=== PATIENT | female | born 1970 | race Caucasian/White ===

== ENCOUNTER 2016-03-23 19:11 | Outpatient (CLI) | payer MEDICAID | END 2016-03-23 19:12 | disposition home or self-care (01) | DX: G47.33 Obstructive sleep apnea (adult) (pediatric) (principal); Z68.35 Body mass index [BMI] 35.0-35.9, adult ==

== ENCOUNTER 2016-04-13 14:15 | Outpatient (CLI) | payer MEDICAID | END 2016-04-13 14:16 | disposition home or self-care (01) | DX: G47.33 Obstructive sleep apnea (adult) (pediatric) (principal) ==

== ENCOUNTER 2016-04-23 11:10 | Outpatient (CLI) | payer MEDICAID | END 2016-04-23 11:11 | disposition home or self-care (01) | DX: E10.8 Type 1 diabetes mellitus with unspecified complications (principal); E78.5 Hyperlipidemia, unspecified ==

== ENCOUNTER 2016-05-27 15:18 | Outpatient (CLI) | payer MEDICAID | END 2016-05-27 15:19 | disposition home or self-care (01) | LOC: SC 15:18 | PROVIDERS: ATTEND Nurse Practitioner Family | DX: G47.33 Obstructive sleep apnea (adult) (pediatric) (principal) | CPT/HCPCS: 99212; 99214 ==

== ENCOUNTER 2016-06-29 05:09 | Emergency (ER) | payer MEDICAID ==
[2016-06-29] MEDS ORDERED: LIDOCAINE VISCOUS 2% 15 ML UDC MM STA (05:24)
[2016-06-29] MEDS ORDERED: ONDANSETRON ODT 4 MG TABLET TL STA (05:24)
[2016-06-29] MEDS ORDERED: PANTOPRAZOLE 40 MG TABLET PO STA (05:24)
[2016-06-29] MEDS ORDERED: PANTOPRAZOLE 40 MG TABLET ONE (05:33)
[2016-06-29] MEDS ORDERED: LIDOCAINE VISCOUS 2% 15 ML UDC MM ONE (05:33)
[2016-06-29] MEDS ORDERED: ONDANSETRON ODT 4 MG TABLET ONE (05:33)
== END 2016-06-29 05:44 | disposition home or self-care (01) ==
DX: K29.70 Gastritis, unspecified, without bleeding (principal); M79.7 Fibromyalgia; I10 Essential (primary) hypertension; E10.9 Type 1 diabetes mellitus without complications; Z79.4 Long term (current) use of insulin; F17.200 Nicotine dependence, unspecified, uncomplicated
CPT/HCPCS: 99283; A9270; Q0162

== ENCOUNTER 2016-06-30 15:03 | Outpatient (CLI) | payer MEDICAID | END 2016-06-30 15:04 | disposition home or self-care (01) | DX: G47.33 Obstructive sleep apnea (adult) (pediatric) (principal) ==

== ENCOUNTER 2016-07-14 15:47 | Outpatient (CLI) | payer MEDICAID | END 2016-07-14 15:48 | disposition home or self-care (01) | DX: E10.8 Type 1 diabetes mellitus with unspecified complications (principal); L03.032 Cellulitis of left toe ==

== ENCOUNTER 2016-07-21 15:57 | Outpatient (CLI) | payer MEDICAID | END 2016-07-21 15:58 | disposition home or self-care (01) | LOC: SC 15:57 | PROVIDERS: ATTEND Nurse Practitioner Family | DX: G47.33 Obstructive sleep apnea (adult) (pediatric) (principal) | CPT/HCPCS: 99212; 99214 ==

== ENCOUNTER 2016-09-02 16:14 | Outpatient (CLI) | payer MEDICAID | END 2016-09-02 16:15 | disposition home or self-care (01) | LOC: LAB 16:14 | PROVIDERS: ATTEND Nurse Practitioner Family | DX: E87.5 Hyperkalemia (principal) | CPT/HCPCS: 36415; 84132 ==

== ENCOUNTER 2016-09-07 19:21 | Emergency (ER) | payer MEDICAID ==
--- NOTE | 2016-09-07 21:22 | ED Physician Documentation ---
History of Present Illness - Stated complaint Stated Complaint: R LEG PX - Chief complaint Chief Complaint: General - History obtained from History obtained from: Patient - History of Present Illness Timing: Today Pain level max: 7 Pain level now: 6 Improved by: rest Worsened by: plantar flexion - Additonal information Additional information: stabbing R LE pain started a few hours ago. anterior devries. Took gabapentin without relief. 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 : Chronic bladder infection, Nocturia, Frequency HEENT: None Psych: None Musculoskeletal: Fibromyalgia Derm: None - Past Surgical History Past Surgical History: Yes Ortho: Other HEENT: Myringotomy (tubes) - Present Medications Home Medications: Ambulatory Orders Medication Instructions Recorded Confirmed Atenolol [Tenormin] 100 mg PO DAILY 07/19/12 06/05/16 Insulin Glargine,Hum.rec.anlog 48 unit SQ DAILY 07/19/12 06/05/16 [Lantus] Insulin Lispro [Humalog] 7 - 21 unit SQ BIDWM 07/19/12 06/05/16 traZODone [Desyrel] 50 mg PO HS 07/19/12 06/05/16 Simvastatin 20 mg PO QPM 12/24/13 06/05/16 Butalb/Acetaminophen/Caffeine 1 each PO Q6H PRN #10 capsule 05/23/14 06/05/16 [Fioricet 50-300-40 mg Capsule] Albuterol [Ventolin Hfa] 2 puffs INH Q4H PRN 09/03/14 06/05/16 Cholecalciferol (Vitamin D3) 5,000 units PO DAILY 07/01/15 06/05/16 [Vitamin D] Gabapentin [Neurontin] 600 mg PO TID 07/01/15 06/05/16 Hydrocodone/Acetaminophen [[place] 1 each PO Q6H PRN #20 tablet 08/09/15 06/05/16 5-325 Tablet] Cyclobenzaprine HCl 10 mg PO TID PRN 06/05/16 06/05/16 Tramadol HCl 50 mg PO TID PRN 06/05/16 06/05/16 Ondansetron Odt [Zofran] 4 mg TL Q6H PRN #14 tablet 06/29/16 Pantoprazole [Protonix] 40 mg PO DAILY #14 tablet 06/29/16 Hydrocodone/Acetaminophen 1 - 2 each PO Q6H PRN #10 tablet 09/07/16 [Hydrocodon-Acetaminophen 5-325] - Allergies Allergies/Adverse Reactions: Allergies Allergy/AdvReac Type Severity Reaction Status Date / Time Fish Containing Products Allergy Severe Anaphylaxis Verified 09/07/16 19:46 meperidine HCl * AdvReac Severe Respiratory Verified 09/07/16 19:46 [From Demerol] cephalexin monohydrate * AdvReac Intermediate Hives Verified 09/07/16 19:46 [From Keflex] Sulfa (Sulfonamide AdvReac Intermediate Hives Verified 09/07/16 19:46 Antibiotics) pecan Allergy Severe Unknown Uncoded 06/05/16 09:16 Seafood Allergy Severe Anaphylaxis Uncoded 06/05/16 09:16 Walnuts Allergy Severe Unknown Uncoded 06/05/16 09:16 tape AdvReac Rash Uncoded 06/05/16 09:28 - Social History Does the pt smoke?: Yes Smoking Status: Current some day smoker Does the pt drink ETOH?: Yes Does the pt have substance abuse?: No - Immunizations Immunizations are current?: Yes Immunizations: TDAP >10years/unknown - POLST Patient has POLST: No PD ED PE NORMAL - Vitals Vital signs reviewed: Yes - General General: Alert and oriented X 3, No acute distress - Derm Derm: Warm and dry - Extremities Extremities: No deformity, Other (TTP R lower leg. No swelling. compartments soft. NVI. Tenderness is mainly on the lateral aspect of the calf.) - Neuro Neuro: Alert and oriented X 3 - Psych Psych: Normal mood, Normal affect Results - Vitals Vitals: Oxygen O2 Source Room air - Rads (name of study) Duplex ultrasound right lower extremity Radiology: Prelim report reviewed, EMP read contemporaneously, See rad report ( No DVT) PD MEDICAL DECISION MAKING - ED course Complexity details: reviewed results, re-evaluated patient, considered differential, d/w patient, d/w family ED course: Patient is a 46-year-old female with a history of fibromyalgia who presents with right lateral calf pain. No evidence of DVT. No evidence of compartment syndrome. No evidence of cellulitis or infection. This does follow the distribution of the peroneal nerve, likely related to her fibromyalgia. Will prescribe a small amount of pain medication and have her follow-up with her doctor. Patient and family counseled regarding signs and symptoms for which I believe and urgent re-evaluation would be necessary. Patient with good understanding of and agreement to plan and is comfortable going home at this time This document was made in part using voice recognition software. While efforts are made to proofread this document, sound alike and grammatical errors may occur. Departure - Departure Disposition: 01 Home, Self Care Clinical Impression: Leg pain, right Condition: Good Instructions: ED Acute Pain [facility] Follow-Up: Anitra Ocampo ARNP [Primary Care Provider] - Within 1 week Prescriptions: Hydrocodone/Acetaminophen [Hydrocodon-Acetaminophen 5-325] 1 - 2 each PO Q6H PRN #10 tablet PRN Reason: pain Comments: Return if you worsen. Your ultrasound is normal today. Do not drink alcohol or drive while on narcotic pain medicine. Note that many narcotic pain relievers also contain tylenol/acetaminophen. Please ensure that your total dose of acetaminophen from all sources does not exceed 3 grams (3000mg) per day. You may constipated on this medication, take a stool softener such as "Colace" twice a day while you are on it. Also recommend a udmh-hpv-nqmtlii laxative such as senna or MiraLAX any day that you do not have a bowel movement. If you received narcotic pain medication in the emergency department, do not drive or operate machinery for the next 24 hours. Discharge Date/Time: 09/07/16 23:24
[2016-09-07] MEDS ORDERED: HYDROcod/ACETAM 5/325 MG TABLET PO STA ×2 (21:37→23:14)
[2016-09-07] MEDS ORDERED: HYDROcod/ACETAM 5/325 MG TABLET ONE ×2 (21:42→23:18)
--- NOTE | 2016-09-07 22:47 | Ultrasound Preliminary Report ---
Exam: US Duplex Ext Veins Right IMPRESSION: No evidence for deep venous thrombosis. [facility] SITE ID: [id number]
--- NOTE | 2016-09-07 22:50 | Ultrasound Report ---
EXAM: RIGHT LOWER EXTREMITY VENOUS ULTRASOUND EXAM DATE: 09/07/2016 10:06 PM. CLINICAL HISTORY: Right lower extremity pain COMPARISON: None. TECHNIQUE: Real-time sonographic vascular imaging was performed by the residency program coordinator through the lower extremity utilizing both color-flow and Doppler spectral analysis. Multiple cash application representative static amalia ges were saved for review. FINDINGS: Common Femoral Vein (CFV): Normal. CFV-GSV Junction: Normal. Profunda Femoral Vein (PFV): Normal. Femoral Vein (FV) Prox: Normal. Femoral Vein (FV) Mid: Normal. Femoral Vein (FV) Dist: Normal. Popliteal Vein: Normal. Posterior Tibial Veins: Normal. Peroneal Veins: Normal. Contralateral Side CFV: Normal. Other: None. IMPRESSION: No evidence for deep venous thrombosis. [facility] Referring Provider Line: [phone] SITE ID: [id number]
[2016-09-07 23:13] VITALS: BP 120/74
== END 2016-09-07 23:24 | disposition home or self-care (01) ==
LOC: ED 19:21
DX: M79.661 Pain in right lower leg (principal); M79.7 Fibromyalgia; I10 Essential (primary) hypertension; E10.8 Type 1 diabetes mellitus with unspecified complications; Z79.4 Long term (current) use of insulin; F17.200 Nicotine dependence, unspecified, uncomplicated
CPT/HCPCS: 93971; 99283; A9270

== ENCOUNTER 2016-09-08 13:30 | Outpatient (CLI) | payer MEDICAID ==
--- NOTE | 2016-09-09 16:40 | Mammography Report ---
DIGITAL SCREENING MAMMOGRAM: 09/08/2016 CLINICAL INDICATION: A 46-year-old with family history of breast cancer for screening. COMPARISON: 09/2013 TECHNIQUE: Routine CC and MLO projections were obtained of the breasts. FINDINGS: Parenchymal tissue within the breasts is predominantly fatty replaced. There are no domina nt masses, suspicious microcalcifications, or secondary signs of malignancy. In comparison to the pre vious studies, there are no significant changes. IMPRESSION: NO MAMMOGRAPHIC EVIDENCE OF MALIGNANCY. NO SIGNIFICANT INTERVAL CHANGES. RECOMMENDATION: Screening mammography is recommended annually. BIRADS category 1 - negative. STANDARD QUALIFYING STATEMENTS 1. This examination was reviewed with the aid of Computed-Aided Detection (CAD). 2. A negative or benign imaging report should not delay biopsy if clinically suspicious findings are present. Consider surgical consultation if warranted. More than 5% of cancers are not identified by i maging. 3. Dense breasts may obscure an underlying neoplasm. JOB #: [id number] EXT JOB #:[id number]
== END 2016-09-08 13:31 | disposition home or self-care (01) ==
LOC: DI 13:30
PROVIDERS: ATTEND Nurse Practitioner Family
DX: Z12.31 Encounter for screening mammogram for malignant neoplasm of breast (principal)
CPT/HCPCS: 77067

== ENCOUNTER 2016-09-23 14:41 | Outpatient (CLI) | payer MEDICAID ==
--- NOTE | 2016-09-24 09:31 | XRAY Report ---
TWO-VIEW CHEST: 09/23/2016 CLINICAL INDICATION: Cough. FINDINGS: Frontal and lateral views of the chest demonstrate a normal cardiac silhouette. The lungs are clear. No effusion or pneumothorax is present. IMPRESSION: NORMAL CHEST. JOB #: [id number] EXT JOB #:[id number]
--- NOTE | 2016-09-24 09:33 | XRAY Report ---
THREE-VIEW RIGHT FOOT: 09/23/2016 CLINICAL INDICATION: Foot pain. FINDINGS: AP, lateral, oblique views of the right foot demonstrate mild osteoarthritis of the 1st me tatarsophalangeal joint. Lateral soft tissue swelling is seen. There is no evidence of acute fractu re or dislocation. IMPRESSION: SOFT TISSUE SWELLING AND OSTEOARTHRITIS. NO EVIDENCE OF ACUTE FRACTURE. JOB #: [id number] EXT JOB #:[id number]
== END 2016-09-23 14:42 | disposition home or self-care (01) ==
LOC: DI.S 14:41
PROVIDERS: ATTEND Nurse Practitioner Family
DX: R05 Cough (principal); M19.071 Primary osteoarthritis, right ankle and foot; R22.41 Localized swelling, mass and lump, right lower limb
CPT/HCPCS: 71020

== ENCOUNTER 2016-09-28 10:34 | Outpatient (CLI) | payer MEDICAID | END 2016-09-28 10:35 | disposition home or self-care (01) | LOC: LAB.F 10:34 | PROVIDERS: ATTEND Nurse Practitioner Family | DX: Z78.9 Other specified health status (principal) | CPT/HCPCS: 36415; 86803 ==

== ENCOUNTER 2016-12-03 13:13 | Outpatient (CLI) | payer MEDICAID ==
[2016-12-03 14:00] LABS: BASOPHILS # (AUTO) 0.1 10^3/uL (0.0-0.1); BASOPHILS % (AUTO) 0.9 %; EOSINOPHILS # (AUTO) 0.3 10^3/uL (0.0-0.7); HGB - HEMOGLOBIN 14.7 g/dL (12.0-16.0); LYMPHOCYTES # (AUTO) 2.5 10^3/uL (1.5-3.5); LYMPHOCYTES % (AUTO) 30.4 %; MEAN CORPUSCULAR HEMOGLOBIN 31.1 pg (27.0-31.0); MEAN CORPUSCULAR HGB CONC 32.7 g/dL (32.0-36.0); MEAN PLATELET VOLUME 8.8 fL (7.9-10.8); MONOCYTES # (AUTO) 0.6 10^3/uL (0.0-1.0); MONOCYTES % (AUTO) 6.8 %; NEUTROPHILS # (AUTO) 4.8 10^3/uL (1.5-6.6); NEUTROPHILS % (AUTO) 57.9 %; RED BLOOD COUNT 4.73 10^6/uL (4.20-5.40); UNCORRECTED WHITE BLOOD COUNT 8.3 x10^3/uL; WHITE BLOOD COUNT 8.3 x10^3/uL (4.8-10.8)
== END 2016-12-03 13:14 | disposition home or self-care (01) ==
LOC: LAB 13:13
PROVIDERS: ATTEND Nurse Practitioner Family
DX: L08.9 Local infection of the skin and subcutaneous tissue, unspecified (principal)
CPT/HCPCS: 36415; 85025; 85651; 86140

== ENCOUNTER 2017-01-01 23:50 | Emergency (ER) | payer MEDICAID ==
[2017-01-02] MEDS ORDERED: FAMOTIDINE 20 MG TABLET PO STA (00:04)
[2017-01-02] MEDS ORDERED: predniSONE 20 MG TABLET PO STA (00:04)
[2017-01-02] MEDS ORDERED: FAMOTIDINE 20 MG TABLET ONE (00:13)
[2017-01-02] MEDS ORDERED: predniSONE 20 MG TABLET ONE (00:13)
--- NOTE | 2017-01-02 00:44 | ED Physician Documentation ---
PD HPI DYSPNEA - Stated complaint Stated Complaint: DIFF BREATHING,ALLERGY - Chief complaint Chief Complaint: Resp - History obtained from History obtained from: Patient, Family - History of Present Illness Timing - onset: Today Timing - details: Gradual onset, Now resolved Improved by: Benadryl Associated symptoms: No: Fever, Cough, Wheezing, Chest pain / discomfort Similar symptoms before: Work up / diagnostics, Treatment Recently seen: Not recently seen - Additional information Additional information: Patient is a 46 year old female with a history of diabetes and a fish allergy who is presenting to the emergency department for allergic reaction. Patient states that she was out drinking and somebody gave her jerky. Patient thought that it was beef but it was fish. Patient started to feel scratching in her throat so she took three shots of fireball to "kill the fish". Patient proceeded to take three benadryls before coming to the emergency department. Upon initial evaluation in the emergency department patient was awake, alert and oriented and had no signs of an allergic reaction. Review of Systems Constitutional: denies: Fever, Chills Eyes: reports: Reviewed and negative Ears: denies: Ear pain, Drainage/discharge Nose: denies: Congestion, Sinus pressure / pain Throat: reports: Sore throat Cardiac: denies: Chest pain / pressure, Palpitations Respiratory: reports: Dyspnea. 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 : Chronic bladder infection, Nocturia, Frequency HEENT: None Psych: None Musculoskeletal: Fibromyalgia Derm: None - Past Surgical History Past Surgical History: Yes Ortho: Other HEENT: Myringotomy (tubes) - Present Medications Home Medications: Ambulatory Orders Medication Instructions Recorded Confirmed Atenolol [Tenormin] 100 mg PO DAILY 07/19/12 06/05/16 Insulin Glargine,Hum.rec.anlog 48 unit SQ DAILY 07/19/12 06/05/16 [Lantus] Insulin Lispro [Humalog] 7 - 21 unit SQ BIDWM 07/19/12 06/05/16 traZODone [Desyrel] 50 mg PO HS 07/19/12 06/05/16 Simvastatin 20 mg PO QPM 12/24/13 06/05/16 Butalb/Acetaminophen/Caffeine 1 each PO Q6H PRN #10 capsule 05/23/14 06/05/16 [Fioricet 50-300-40 mg Capsule] Albuterol [Ventolin Hfa] 2 puffs INH Q4H PRN 09/03/14 06/05/16 Cholecalciferol (Vitamin D3) 5,000 units PO DAILY 07/01/15 06/05/16 [Vitamin D] Gabapentin [Neurontin] 600 mg PO TID 07/01/15 06/05/16 Hydrocodone/Acetaminophen [[place] 1 each PO Q6H PRN #20 tablet 08/09/15 06/05/16 5-325 Tablet] Cyclobenzaprine HCl 10 mg PO TID PRN 06/05/16 06/05/16 Tramadol HCl 50 mg PO TID PRN 06/05/16 06/05/16 Ondansetron Odt [Zofran] 4 mg TL Q6H PRN #14 tablet 06/29/16 Pantoprazole [Protonix] 40 mg PO DAILY #14 tablet 06/29/16 Hydrocodone/Acetaminophen 1 - 2 each PO Q6H PRN #10 tablet 09/07/16 [Hydrocodon-Acetaminophen 5-325] Ondansetron Odt [Zofran] 4 mg TL Q6H PRN #20 tablet 01/02/17 Prednisone 40 mg PO DAILY 5 Days tablet 01/02/17 - Allergies Allergies/Adverse Reactions: Allergies Allergy/AdvReac Type Severity Reaction Status Date / Time Fish Containing Products Allergy Severe Anaphylaxis Verified 01/01/17 23:57 meperidine HCl * AdvReac Severe Respiratory Verified 01/01/17 23:57 [From Demerol] cephalexin monohydrate * AdvReac Intermediate Hives Verified 01/01/17 23:57 [From Keflex] Sulfa (Sulfonamide AdvReac Intermediate Hives Verified 01/01/17 23:57 Antibiotics) pecan Allergy Severe Unknown Uncoded 01/01/17 23:57 Seafood Allergy Severe Anaphylaxis Uncoded 01/01/17 23:57 Walnuts Allergy Severe Unknown Uncoded 01/01/17 23:57 tape AdvReac Rash Uncoded 01/01/17 23:57 - Social History Does the pt smoke?: Yes Smoking Status: Current every day smoker Does the pt drink ETOH?: Yes Does the pt have substance abuse?: No - Immunizations Immunizations are current?: Yes Immunizations: TDAP >10years/unknown - POLST Patient has POLST: No PD ED PE NORMAL - Vitals Vital signs reviewed: Yes - General General: Alert and oriented X 3 - HEENT HEENT: Atraumatic, PERRL - Neck Neck: Supple, no meningeal sign, No JVD - Cardiac Cardiac: RRR, No murmur - Respiratory Respiratory: No respiratory distress, Clear bilaterally - Abdomen Abdomen: Soft, Non tender, Non distended - Derm Derm: Normal color, No rash - Extremities Extremities: No deformity, No edema, No calf tenderness / cord - Neuro Neuro: Alert and oriented X 3, No motor deficit, No sensory deficit, Normal speech PD ED PE EXPANDED - General General: Other (mildly intoxicated) - HEENT HEENT: Moist mucous membranes, Pharynx normal, Other (no soft palate, tongue or lip swelling). No: Pharyngeal erythema, Swollen tonsils - Respiratory Respiratory: Clear to ausultation philip. No: Distress, Labored, Retractions, Wheezing Results - Vitals Vitals: Vital Signs - 24 hr 01/01/17 01/02/17 01/02/17 23:50 00:05 00:30 Temperature 36.5 C Heart Rate 99 95 94 Respiratory 16 17 18 Rate Blood Pressure 129/73 138/79 H 132/76 H O2 Saturation 100 96 95 01/02/17 01/02/17 01/02/17 00:58 01:00 01:01 Temperature Heart Rate 93 90 Respiratory 16 16 Rate Blood Pressure 134/70 H O2 Saturation 100 01/02/17 01/02/17 01/02/17 01:03 01:13 01:23 Temperature Heart Rate 92 87 81 Respiratory 14 15 17 Rate Blood Pressure 134/70 H 126/72 O2 Saturation 100 100 100 Oxygen O2 Source Nasal cannula - Labs Labs: Laboratory Tests 01/02/17 00:30 POC Whole Bld Glucose 233 H PD MEDICAL DECISION MAKING - ED course Complexity details: reviewed old records, reviewed results, re-evaluated patient , considered differential, d/w patient, d/w family ED course: Patient was seen and examined at bedside. Patient had no wheezing, no facial swelling. Patient had already taken three bendaryl and was treated with prednisone, and pepcid. Patient states that she was diabetic and wanted her blood glucose checked which was within normal limits. Patient had an episode of emesis and was treated with zofran. Patient continued to show no signs of airway compromise or systemic allergic reaction and patient was stable for discharge with outpatient follow up. Departure - Departure Disposition: 01 Home, Self Care Clinical Impression: Allergic reaction Condition: Good Instructions: ED Allergic React Food Prescriptions: Ondansetron Odt [Zofran] 4 mg TL Q6H PRN #20 tablet PRN Reason: Nausea / Vomiting Prednisone 40 mg PO DAILY 5 Days tablet Comments: Your symptoms today are being caused by an allergic reaction. You should continue to take the steroids daily for the next 4 days. You should take the benadryl every 6 hours as needed for allergy symptoms. If you have an allergic reaction again, please refrain from drinking excessively as it will not help the allergy and can exacerbate the symptoms. Discharge Date/Time: 01/02/17 01:30
[2017-01-02] MEDS ORDERED: ONDANSETRON ODT 4 MG TABLET TL STA (00:48)
[2017-01-02] MEDS ORDERED: ONDANSETRON ODT 4 MG TABLET ONE (00:57)
[2017-01-02 01:14] VITALS: BP 126/72
== END 2017-01-02 01:30 | disposition home or self-care (01) ==
LOC: ED 23:50
DX: T78.1XXA Other adverse food reactions, not elsewhere classified, initial encounter (principal); X58.XXXA Exposure to other specified factors, initial encounter; E10.9 Type 1 diabetes mellitus without complications; R11.10 Vomiting, unspecified; I10 Essential (primary) hypertension; E78.00 Pure hypercholesterolemia, unspecified; F17.200 Nicotine dependence, unspecified, uncomplicated
CPT/HCPCS: 99283; 99284; A9270; J7512; Q0162

== ENCOUNTER 2017-04-18 18:25 | Emergency (ER) | payer MEDICAID ==
[2017-04-18 18:30] VITALS: BP 153/82
[2017-04-18] MEDS ORDERED: MELOXICAM 7.5 MG TABLET PO STA (18:52)
--- NOTE | 2017-04-18 18:54 | ED Physician Documentation ---
History of Present Illness - Stated complaint Stated Complaint: L POINTER FINGER LAC - Chief complaint Chief Complaint: General - History obtained from History obtained from: Patient - History of Present Illness Timing: Other (She is a small laceration on the left index finger from yesterday that was Steri-Stripped. 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 : Chronic bladder infection, Nocturia, Frequency HEENT: None Psych: None Musculoskeletal: Fibromyalgia Derm: None - Past Surgical History Past Surgical History: Yes Ortho: Other HEENT: Myringotomy (tubes) - Present Medications Home Medications: Ambulatory Orders Medication Instructions Recorded Confirmed Atenolol [Tenormin] 100 mg PO DAILY 07/19/12 04/18/17 Insulin Glargine,Hum.rec.anlog 48 unit SQ DAILY 07/19/12 04/18/17 [Lantus] Insulin Lispro [Humalog] 7 - 21 unit SQ BIDWM 07/19/12 04/18/17 traZODone [Desyrel] 50 mg PO HS 07/19/12 04/18/17 Simvastatin 20 mg PO QPM 12/24/13 04/18/17 Butalb/Acetaminophen/Caffeine 1 each PO Q6H PRN #10 capsule 05/23/14 04/18/17 [Fioricet 50-300-40 mg Capsule] Albuterol [Ventolin Hfa] 2 puffs INH Q4H PRN 09/03/14 04/18/17 Cholecalciferol (Vitamin D3) 5,000 units PO DAILY 07/01/15 04/18/17 [Vitamin D] Gabapentin [Neurontin] 600 mg PO TID 07/01/15 04/18/17 Hydrocodone/Acetaminophen [[place] 1 each PO Q6H PRN #20 tablet 08/09/15 04/18/17 5-325 Tablet] Cyclobenzaprine HCl 10 mg PO TID PRN 06/05/16 04/18/17 Tramadol HCl 50 mg PO TID PRN 06/05/16 04/18/17 Ondansetron Odt [Zofran] 4 mg TL Q6H PRN #14 tablet 06/29/16 04/18/17 Pantoprazole [Protonix] 40 mg PO DAILY #14 tablet 06/29/16 04/18/17 Hydrocodone/Acetaminophen 1 - 2 each PO Q6H PRN #10 tablet 09/07/16 04/18/17 [Hydrocodon-Acetaminophen 5-325] Ondansetron Odt [Zofran] 4 mg TL Q6H PRN #20 tablet 01/02/17 04/18/17 predniSONE [Prednisone] 40 mg PO DAILY 5 Days tablet 01/02/17 04/18/17 Meloxicam [Mobic] 7.5 mg PO BIDWM PRN #15 tablet 04/18/17 - Allergies Allergies/Adverse Reactions: Allergies Allergy/AdvReac Type Severity Reaction Status Date / Time Fish Containing Products Allergy Severe Anaphylaxis Verified 04/18/17 01:05 meperidine HCl * AdvReac Severe Respiratory Verified 04/18/17 01:05 [From Demerol] cephalexin monohydrate * AdvReac Intermediate Hives Verified 04/18/17 01:05 [From Keflex] Sulfa (Sulfonamide AdvReac Intermediate Hives Verified 04/18/17 01:05 Antibiotics) pecan Allergy Severe Unknown Uncoded 04/18/17 01:05 Seafood Allergy Severe Anaphylaxis Uncoded 04/18/17 01:05 Walnuts Allergy Severe Unknown Uncoded 04/18/17 01:05 tape AdvReac Rash Uncoded 04/18/17 01:05 - Social History Does the pt smoke?: Yes Smoking Status: Current every day smoker Does the pt drink ETOH?: Yes Does the pt have substance abuse?: No - Immunizations Immunizations are current?: Yes Immunizations: TDAP >10years/unknown - POLST Patient has POLST: No PD ED PE NORMAL - Vitals Vital signs reviewed: Yes - General General: Alert and oriented X 3, No acute distress - Extremities Extremities: Other (There is a tiny laceration on the left index finger with a Steri-Strip in place, no evidence of infection.) - Neuro Neuro: Alert and oriented X 3, Normal speech Results - Vitals Vitals: Vital Signs - 24 hr 04/18/17 18:28 Temperature 36.1 C L Heart Rate 95 Respiratory 20 Rate Blood Pressure 153/82 H O2 Saturation 98 Oxygen O2 Source Room air Departure - Departure Disposition: 01 Home, Self Care Clinical Impression: Finger laceration Qualifiers: Encounter type: subsequent encounter Finger: index finger Damage to nail status : without damage Foreign body presence: without foreign body Laterality: left Qualified Code(s): S61.211D - Laceration without foreign body of left index finger without damage to nail, subsequent encounter Condition: Good Record reviewed to determine appropriate education?: Yes Instructions: ED Laceration Hand Prescriptions: Meloxicam [Mobic] 7.5 mg PO BIDWM PRN #15 tablet PRN Reason: Pain Comments: Your blood pressure was elevated today on check into the emergency department. This does not mean that you have hypertension, it is a common phenomenon to come to the emergency department and have elevated blood pressure. I recommend that you see your primary care physician within the week to have it rechecked when you are feeling better.
== END 2017-04-18 18:57 | disposition home or self-care (01) ==
LOC: ED 18:25
DX: S61.211D Laceration without foreign body of left index finger without damage to nail, subsequent encounter (principal); W26.0XXD Contact with knife, subsequent encounter; Z23 Encounter for immunization; E78.00 Pure hypercholesterolemia, unspecified; I10 Essential (primary) hypertension; E10.9 Type 1 diabetes mellitus without complications; F17.200 Nicotine dependence, unspecified, uncomplicated
CPT/HCPCS: 90471; 90715; 99282; 99283; A9270; 12001

== ENCOUNTER 2017-06-22 08:00 | Outpatient (CLI) | payer MEDICAID ==
[2017-06-22 18:05] LABS: ALBUMIN 3.6 g/dL (3.2-5.5); ALBUMIN/GLOBULIN RATIO 0.9 (1.0-2.2); ALKALINE PHOSPHATASE 87 IU/L (42-121); ALT ALANINE AMINOTRANSFERASE 18 IU/L (10-60); AST ASPARTATE AMINOTRANSFERASE 21 IU/L (10-42); BILIRUBIN,TOTAL 0.3 mg/dL (0.2-1.0); BUN - BLOOD UREA NITROGEN 11 mg/dL (6-20); CALCIUM 8.8 mg/dL (8.5-10.3); CARBON DIOXIDE - CO2 28 mmol/L (21-32); CHLORIDE 103 mmol/L (101-111); CHOL/HDL RATIO 2.6 (<4.4); CHOLESTEROL 193 mg/dL; CREATININE 0.7 mg/dL (0.4-1.0); GFR - MDRD 89 (>89); GLUCOSE 284 mg/dL (70-100); HDL CHOLESTEROL 73 mg/dL; LDL CHOLESTEROL,CALCULATED 97 mg/dL; LDL/HDL RATIO 1.3 (<4.4); SODIUM 136 mmol/L (135-145); TOTAL PROTEIN 7.4 g/dL (6.7-8.2); VLDL CHOLESTEROL 23 mg/dL
[2017-06-22 18:56] LABS: HB2 TOTAL 16.3 g/dL; HEMOGLOBIN A1C 1.24 g/dL; HEMOGLOBIN A1C % 9.1 % (4.6-6.2)
== END 2017-06-22 08:01 | disposition home or self-care (01) ==
LOC: LAB.F 08:00
PROVIDERS: ATTEND Nurse Practitioner Family
DX: E10.8 Type 1 diabetes mellitus with unspecified complications (principal); I10 Essential (primary) hypertension
CPT/HCPCS: 36415; 80053; 80061; 82043; 82570; 83036; 83721; 84443

== ENCOUNTER 2017-09-08 08:00 | Outpatient (CLI) | payer MEDICAID ==
[2017-09-08 18:00] LABS: BILIRUBIN,URINE NEGATIVE (NEGATIVE); GLUCOSE, URINE (UA) >=1000 mg/dL (NEGATIVE); KETONES,URINE (UA) NEGATIVE (NEGATIVE); LEUKOCYTE ESTERASE, URINE NEGATIVE (NEGATIVE); NITRITE,URINE NEGATIVE (NEGATIVE); OCCULT BLOOD,URINE MODERATE (NEGATIVE); PROTEIN,URINE NEGATIVE (NEGATIVE); UROBILINOGEN,URINE 0.2 (NORMAL) E.U./dL (NORMAL)
[2017-09-08 18:06] LABS: CLARITY,URINE CLEAR (CLEAR)
[2017-09-08 18:23] LABS: BACTERIA,URINE None Seen /HPF (None Seen); SQUAMOUS EPITHELIAL CELL,UR RARE Squamous (<= Few)
== END 2017-09-08 08:01 | disposition home or self-care (01) ==
LOC: LAB.R 08:00
PROVIDERS: ATTEND Nurse Practitioner Family
DX: N39.0 Urinary tract infection, site not specified (principal)
CPT/HCPCS: 81001; 87086

== ENCOUNTER 2017-09-29 08:00 | Outpatient (CLI) | payer MEDICAID | END 2017-09-29 08:01 | disposition home or self-care (01) | LOC: LAB.R 08:00 | PROVIDERS: ATTEND Nurse Practitioner Family | DX: R19.7 Diarrhea, unspecified (principal) | CPT/HCPCS: 82270 ==

== ENCOUNTER 2017-10-05 16:07 | Outpatient (CLI) | payer MEDICAID ==
[2017-10-05 16:30] LABS: BASOPHILS # (AUTO) 0.1 10^3/uL (0.0-0.1); BASOPHILS % (AUTO) 1.4 %; EOSINOPHILS # (AUTO) 0.5 10^3/uL (0.0-0.7); EOSINOPHILS % (AUTO) 6.6 %; LYMPHOCYTES # (AUTO) 3.5 10^3/uL (1.5-3.5); LYMPHOCYTES % (AUTO) 41.9 %; MEAN CORPUSCULAR HEMOGLOBIN 31.5 pg (27.0-31.0); MEAN CORPUSCULAR VOLUME 95.6 fL (81.0-99.0); MEAN PLATELET VOLUME 8.8 fL (7.9-10.8); MONOCYTES # (AUTO) 0.5 10^3/uL (0.0-1.0); MONOCYTES % (AUTO) 5.9 %; NEUTROPHILS # (AUTO) 3.7 10^3/uL (1.5-6.6); NEUTROPHILS % (AUTO) 44.2 %; PLT - PLATELET COUNT 242 10^3/uL (130-450); RED BLOOD COUNT 4.45 10^6/uL (4.20-5.40); RED CELL DISTRIBUTION WIDTH 13.9 % (12.0-15.0); WHITE BLOOD COUNT 8.3 x10^3/uL (4.8-10.8)
[2017-10-05 16:56] LABS: HB2 TOTAL 15.1 g/dL; HEMOGLOBIN A1C 1.2 g/dL; HEMOGLOBIN A1C % 9.4 % (4.6-6.2)
== END 2017-10-05 16:08 | disposition home or self-care (01) ==
LOC: LAB 16:07
PROVIDERS: ATTEND Nurse Practitioner Family
DX: E10.8 Type 1 diabetes mellitus with unspecified complications (principal); R19.7 Diarrhea, unspecified
CPT/HCPCS: 36415; 83036; 85025

== ENCOUNTER 2017-10-19 01:04 | Outpatient (CLI) | payer MEDICAID | END 2017-10-19 01:05 | disposition short-term general hospital (02) | LOC: EMS 01:04 | PROVIDERS: ATTEND Surgery | DX: R07.9 Chest pain, unspecified (principal) | CPT/HCPCS: A0425; A0427; A0999 ==

== ENCOUNTER 2017-11-29 14:57 | Outpatient (CLI) | payer MEDICAID | END 2017-11-29 14:58 | disposition critical access hospital (66) | LOC: EMS 14:57 | PROVIDERS: ATTEND Surgery | DX: R07.9 Chest pain, unspecified (principal) | CPT/HCPCS: A0425; A0427; A0999 ==

== ENCOUNTER 2017-11-29 15:13 | Observation (INO) | payer MEDICAID ==
--- NOTE | 2017-11-29 15:59 | ED Physician Documentation ---
PD HPI CHEST PAIN - Stated complaint Stated Complaint: CHEST PX - Chief complaint Chief Complaint: Cardiac - History obtained from History obtained from: Patient - History of Present Illness Timing - onset: Today (She had a STEMI about a month ago with a single stent in place and sounds like she has been referred to the [facility] that she may need some more work done interventionally. Today she was at rest and developed pressure-like upper chest pain around 1 PM which is now better but not quite gone. It did get worse when she exerted herself.) Review of Systems Constitutional: denies: Fever, Chills Cardiac: reports: Chest pain / pressure. 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 : Chronic bladder infection, Nocturia, Frequency HEENT: None Psych: None Musculoskeletal: Fibromyalgia Derm: None - Past Surgical History Past Surgical History: Yes Ortho: Other HEENT: Myringotomy (tubes) - Present Medications Home Medications: Ambulatory Orders Medication Instructions Recorded Confirmed Insulin Glargine,Hum.rec.anlog 65 unit SQ QPM 07/19/12 11/29/17 [Lantus] Insulin Lispro [Humalog] 12 - 45 unit SQ QID 07/19/12 11/29/17 Butalb/Acetaminophen/Caffeine 1 each PO Q6H PRN #10 capsule 05/23/14 11/29/17 [Fioricet 50-300-40 mg Capsule] Albuterol [Ventolin Hfa] 2 puffs INH Q4H PRN 09/03/14 11/29/17 Cholecalciferol (Vitamin D3) 5,000 units PO DAILY 07/01/15 11/29/17 [Vitamin D] RX: Gabapentin [Neurontin] 1,200 mg PO TID 07/01/15 11/29/17 RX: Cyclobenzaprine HCl 10 mg PO TID PRN 06/05/16 11/29/17 Omeprazole [PriLOSEC] 40 mg PO DAILY PM 10/13/17 11/29/17 RX: Nortriptyline HCl 50 mg PO DAILY 10/13/17 11/29/17 Ranitidine HCl [Zantac] 300 mg PO BID 10/13/17 11/29/17 Aspirin 81 mg PO DAILY 11/29/17 11/29/17 Carvedilol 12.5 mg PO BID 11/29/17 11/29/17 Clopidogrel Bisulfate [Clopidogrel] 75 mg PO DAILY 11/29/17 11/29/17 Isosorbide Mononitrate [Isosorbide 60 mg PO DAILY 11/29/17 11/29/17 Mononitrate ER] Lisinopril 5 mg PO DAILY 11/29/17 11/29/17 Nicotine 14 mg Patch [Nicoderm] 1 each TOP Q24H 11/29/17 11/29/17 RX: Atorvastatin Calcium 40 mg PO DAILY 11/29/17 11/29/17 - Allergies Allergies/Adverse Reactions: Allergies Allergy/AdvReac Type Severity Reaction Status Date / Time Fish Containing Products Allergy Severe Headache Verified 10/13/17 16:29 meperidine HCl * AdvReac Severe Respiratory Verified 04/18/17 01:05 [From Demerol] cephalexin monohydrate * AdvReac Intermediate Hives Verified 04/18/17 01:05 [From Keflex] Sulfa (Sulfonamide AdvReac Intermediate Hives Verified 04/18/17 01:05 Antibiotics) pecan Allergy Severe Unknown Uncoded 04/18/17 01:05 Seafood Allergy Severe Anaphylaxis Uncoded 04/18/17 01:05 Walnuts Allergy Severe Headache Uncoded 10/13/17 16:29 tape AdvReac Rash Uncoded 04/18/17 01:05 - Social History Does the pt smoke?: Yes Smoking Status: Current every day smoker Does the pt drink ETOH?: Yes Does the pt have substance abuse?: No - Family History Family history: reports: Non contributory - Immunizations Immunizations are current?: Yes Immunizations: TDAP >10years/unknown - POLST Patient has POLST: No PD ED PE NORMAL - Vitals Vital signs reviewed: Yes - General General: Alert and oriented X 3, No acute distress - HEENT HEENT: PERRL, EOMI - Neck Neck: Supple, no meningeal sign, No bony TTP - Cardiac Cardiac: RRR, No murmur - Respiratory Respiratory: No respiratory distress, Clear bilaterally - Abdomen Abdomen: Normal bowel sounds, Soft, Non tender - Back Back: No CVA TTP, No spinal TTP - Derm Derm: Normal color, Warm and dry - Extremities Extremities: No edema, No calf tenderness / cord - Neuro Neuro: Alert and oriented X 3, Normal speech Results - Vitals Vitals: Vital Signs - 24 hr 11/29/17 15:13 Temperature 36.5 C Heart Rate 97 Respiratory 18 Rate Blood Pressure 126/71 O2 Saturation 97 Oxygen O2 Source Room air - EKG (time done) 1530 Rate: Rate (enter#) (97) Rhythm: NSR Lutz: Normal Intervals: Normal UT QRS: Normal Ischemia: Normal ST segments. No: ST elevation c/w ischemia Computer interpretation: Agree with computer - Labs Labs: Laboratory Tests 11/29/17 11/29/17 11/29/17 15:51 15:51 15:51 WBC 7.4 RBC 4.03 L Hgb 12.7 Hct 37.3 MCV 92.8 MCH 31.5 H MCHC 33.9 RDW 14.2 Plt Count 293 MPV 7.8 L Neut # (Auto) 4.3 Lymph # (Auto) 2.2 Haines # (Auto) 0.5 Eos # (Auto) 0.3 Baso # (Auto) 0.1 Absolute Nucleated RBC 0.00 Nucleated RBC % 0.0 Sodium 136 Potassium 4.0 Chloride 98 L Carbon Dioxide 32 Anion Gap 6.0 BUN 17 Creatinine 0.7 Estimated GFR (MDRD) 89 Glucose 179 H Calcium 8.6 Total Bilirubin 0.2 AST 21 ALT 25 Alkaline Phosphatase 83 Troponin I < 0.04 Total Protein 7.3 Albumin 3.4 Globulin 3.9 Albumin/Globulin Ratio 0.9 L Lipase 26 - Rads (name of study) 2v chest Radiology: EMP read contemporaneously (normal) PD MEDICAL DECISION MAKING - ED course ED course: This is a 47-year-old woman with known coronary disease who presents with just a few hours worth of test chest pain. Her initial EKG and biomarkers are nonischemic, that said she Needs a formal rule out given the time course and Dr. Dunn accepted to her service for observation. - Sepsis Event Vital Signs: Vital Signs - 24 hr 11/29/17 15:13 Temperature 36.5 C Heart Rate 97 Respiratory 18 Rate Blood Pressure 126/71 O2 Saturation 97 Oxygen O2 Source Room air Departure - Departure Disposition: ED Place in Observation Clinical Impression: Chest pain Condition: Stable Discharge Date/Time: 11/29/17 17:34
[2017-11-29 16:00] LABS: BASOPHILS # (AUTO) 0.1 10^3/uL (0.0-0.1); BASOPHILS % (AUTO) 0.9 %; EOSINOPHILS # (AUTO) 0.3 10^3/uL (0.0-0.7); EOSINOPHILS % (AUTO) 3.5 %; HGB - HEMOGLOBIN 12.7 g/dL (12.0-16.0); LYMPHOCYTES # (AUTO) 2.2 10^3/uL (1.5-3.5); LYMPHOCYTES % (AUTO) 29.8 %; MEAN CORPUSCULAR HEMOGLOBIN 31.5 pg (27.0-31.0); MEAN CORPUSCULAR HGB CONC 33.9 g/dL (32.0-36.0); MEAN CORPUSCULAR VOLUME 92.8 fL (81.0-99.0); MEAN PLATELET VOLUME 7.8 fL (7.9-10.8); MONOCYTES # (AUTO) 0.5 10^3/uL (0.0-1.0); MONOCYTES % (AUTO) 7.3 %; NEUTROPHILS # (AUTO) 4.3 10^3/uL (1.5-6.6); NEUTROPHILS % (AUTO) 58.5 %; PLT - PLATELET COUNT 293 10^3/uL (130-450); RED BLOOD COUNT 4.03 10^6/uL (4.20-5.40); RED CELL DISTRIBUTION WIDTH 14.2 % (12.0-15.0); WHITE BLOOD COUNT 7.4 x10^3/uL (4.8-10.8)
--- NOTE | 2017-11-29 16:06 | XRAY Report ---
Reason: chest pain Procedure Date: 11/29/2017 Accession Number: [id number] / [id number] Procedure: XR - Chest 2 View X-Ray CPT Code: 43145 FULL RESULT: EXAM: CHEST RADIOGRAPHY EXAM DATE: 11/29/2017 03:51 PM. CLINICAL HISTORY: Chest pain. COMPARISON: CHEST 2 VIEW PA/LAT 09/23/2016 2:52 PM. TECHNIQUE: 2 views. FINDINGS: Lungs/Pleura: No focal opacities evident. No pleural effusion. No pneumothorax. Normal volumes. Mediastinum: Heart and mediastinal contours are unremarkable. Other: None. IMPRESSION: Normal 2-view chest radiography. RADIA
[2017-11-29 16:12] LABS: ALBUMIN 3.4 g/dL (3.2-5.5); ALBUMIN/GLOBULIN RATIO 0.9 (1.0-2.2); BILIRUBIN,TOTAL 0.2 mg/dL (0.2-1.0); CALCIUM 8.6 mg/dL (8.5-10.3); CREATININE 0.7 mg/dL (0.4-1.0); TOTAL PROTEIN 7.3 g/dL (6.7-8.2)
[2017-11-29] MEDS ORDERED: SODIUM CHLORIDE FLUSH 0.9% 10 ML SYRINGE IVP PRN (17:13)
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
[2017-11-29] MEDS ORDERED: NICOTINE 21 MG PATCH TOP SCH (18:00)
[2017-11-29] MEDS ORDERED: BUTALB/ACETAM/CAFF 50/325/40MG TABLET PO PRN (18:38)
[2017-11-29] MEDS ORDERED: INSULIN ASPART 300 UNIT/3 ML PEN SUBQ SCH (18:45)
[2017-11-29] MEDS ORDERED: GABAPENTIN 400 MG CAPSULE PO SCH (19:09)
[2017-11-29] MEDS: GI COCKTAIL 120 ML BOTTLE PO SCH ×2 (19:24→22:54)
[2017-11-29] MEDS: CYCLOBENZAPRINE 10 MG TABLET PO PRN (19:24)
[2017-11-29] MEDS: NICOTINE 14 MG PATCH TOP SCH (19:25)
[2017-11-29] MEDS ORDERED: INSULIN REGULAR HUMAN 100 UNIT/1 ML 10 ML MDV SUBQ SCH (20:00)
[2017-11-29] MEDS ORDERED: CARVEDILOL 12.5 MG TABLET PO SCH ×2 (21:00→22:33)
[2017-11-29] MEDS ORDERED: INSULIN GLARGINE 300 UNIT/3 ML PEN SUBQ SCH (21:00)
[2017-11-29] MEDS ORDERED: GABAPENTIN 100 MG CAPSULE PO SCH (22:00)
[2017-11-29] MEDS ORDERED: NITROGLYCERIN SL 0.4 MG TABLET SL PRN (22:35)
[2017-11-29] MEDS: SODIUM CHLORIDE 0.9% 1,000 ML IV SCH (22:54)
[2017-11-30] MEDS ORDERED: INSULIN REGULAR HUMAN 100 UNIT/1 ML 10 ML MDV SUBQ ONE (01:07)
[2017-11-30] MEDS: SODIUM CHLORIDE FLUSH 0.9% 10 ML SYRINGE IVP SCH ×3 (01:37→16:33)
[2017-11-30 03:15] LABS: BASOPHILS # (AUTO) 0.1 10^3/uL (0.0-0.1); BASOPHILS % (AUTO) 0.8 %; EOSINOPHILS # (AUTO) 0.3 10^3/uL (0.0-0.7); EOSINOPHILS % (AUTO) 4.6 %; HGB - HEMOGLOBIN 11.7 g/dL (12.0-16.0); LYMPHOCYTES # (AUTO) 2.2 10^3/uL (1.5-3.5); LYMPHOCYTES % (AUTO) 30.3 %; MEAN CORPUSCULAR HEMOGLOBIN 31.3 pg (27.0-31.0); MEAN CORPUSCULAR HGB CONC 33.7 g/dL (32.0-36.0); MEAN CORPUSCULAR VOLUME 92.9 fL (81.0-99.0); MEAN PLATELET VOLUME 7.5 fL (7.9-10.8); MONOCYTES # (AUTO) 0.6 10^3/uL (0.0-1.0); MONOCYTES % (AUTO) 8.2 %; NEUTROPHILS % (AUTO) 56.1 %; PLT - PLATELET COUNT 260 10^3/uL (130-450); RED BLOOD COUNT 3.73 10^6/uL (4.20-5.40); WHITE BLOOD COUNT 7.2 x10^3/uL (4.8-10.8)
[2017-11-30 03:29] LABS: ALBUMIN 3.4 g/dL (3.2-5.5); BILIRUBIN,TOTAL 0.3 mg/dL (0.2-1.0); CALCIUM 8.4 mg/dL (8.5-10.3); CREATININE 0.6 mg/dL (0.4-1.0); TOTAL PROTEIN 6.8 g/dL (6.7-8.2)
[2017-11-30 03:37] LABS: HB2 TOTAL 12.3 g/dL; HEMOGLOBIN A1C 0.83 g/dL; HEMOGLOBIN A1C % 8.3 % (4.6-6.2)
[2017-11-30] MEDS: CYCLOBENZAPRINE 10 MG TABLET PO PRN (05:56)
[2017-11-30 06:46] LABS: CHOLESTEROL 152 mg/dL; HDL CHOLESTEROL 76 mg/dL; LDL CHOLESTEROL,CALCULATED 63 mg/dL; LDL/HDL RATIO 0.8 (<4.4); VLDL CHOLESTEROL 13 mg/dL
[2017-11-30] MEDS: SODIUM CHLORIDE 0.9% 1,000 ML IV SCH ×3 (06:59→21:45)
[2017-11-30] MEDS ORDERED: ISOSORBIDE MONONITRATE ER 30 MG TABLET PO SCH ×2 (09:00)
[2017-11-30] MEDS ORDERED: INSULIN GLARGINE 300 UNIT/3 ML PEN SUBQ SCH (09:00)
[2017-11-30] MEDS ORDERED: ATORVASTATIN 40 MG TABLET PO SCH (09:00)
[2017-11-30] MEDS ORDERED: LISINOPRIL 5 MG TABLET PO SCH ×2 (09:00)
[2017-11-30] MEDS: GI COCKTAIL 120 ML BOTTLE PO SCH ×4 (09:53→21:38)
[2017-11-30] MEDS: CLOPIDOGREL 75 MG TABLET PO SCH (09:53)
[2017-11-30] MEDS: ASPIRIN CHEW 81 MG TABLET PO SCH (09:53)
[2017-11-30] MEDS: POLYETHYLENE GLYCOL 3350 17 GM PACKET PO SCH (09:54)
[2017-11-30] MEDS: NORTRIPTYLINE 25 MG CAPSULE PO SCH (10:33)
[2017-11-30] MEDS: INSULIN ASPART 300 UNIT/3 ML PEN SUBQ SCH ×5 (11:52→21:39)
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
[2017-11-30] MEDS ORDERED: METOPROLOL SUCCINATE 50 MG TABLET PO SCH (13:33)
[2017-11-30] MEDS: GABAPENTIN 400 MG CAPSULE PO SCH ×2 (13:53→21:37)
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
[2017-11-30] MEDS ORDERED: INSULIN REGULAR HUMAN 100 UNIT/1 ML 10 ML MDV SUBQ PRN (14:16)
[2017-11-30] MEDS: ISOSORBIDE MONONITRATE 10 MG TABLET PO SCH ×2 (15:03→21:37)
[2017-11-30] MEDS ORDERED: INSULIN LISPRO 100 UNIT/1 ML 10 ML MDV SUBQ PRN (15:07)
[2017-11-30] MEDS ORDERED: INSULIN ASPART 300 UNIT/3 ML PEN SUBQ PRN ×2 (16:07→16:36)
[2017-11-30] MEDS: NICOTINE 14 MG PATCH TOP SCH (21:38)
[2017-12-01] MEDS: SODIUM CHLORIDE FLUSH 0.9% 10 ML SYRINGE IVP SCH ×2 (02:04→09:20)
[2017-12-01] MEDS: SODIUM CHLORIDE 0.9% 1,000 ML IV SCH (05:21)
[2017-12-01] MEDS: GABAPENTIN 400 MG CAPSULE PO SCH (05:40)
[2017-12-01 07:01] LABS: BASOPHILS # (AUTO) 0.1 10^3/uL (0.0-0.1); BASOPHILS % (AUTO) 0.9 %; EOSINOPHILS # (AUTO) 0.3 10^3/uL (0.0-0.7); EOSINOPHILS % (AUTO) 4.4 %; HGB - HEMOGLOBIN 11.7 g/dL (12.0-16.0); LYMPHOCYTES % (AUTO) 30.6 %; MEAN CORPUSCULAR HEMOGLOBIN 31.5 pg (27.0-31.0); MEAN CORPUSCULAR HGB CONC 33.5 g/dL (32.0-36.0); MEAN CORPUSCULAR VOLUME 94.1 fL (81.0-99.0); MEAN PLATELET VOLUME 7.7 fL (7.9-10.8); MONOCYTES # (AUTO) 0.5 10^3/uL (0.0-1.0); MONOCYTES % (AUTO) 7.6 %; NEUTROPHILS # (AUTO) 3.7 10^3/uL (1.5-6.6); NEUTROPHILS % (AUTO) 56.5 %; PLT - PLATELET COUNT 256 10^3/uL (130-450); RED BLOOD COUNT 3.72 10^6/uL (4.20-5.40); RED CELL DISTRIBUTION WIDTH 14.1 % (12.0-15.0); WHITE BLOOD COUNT 6.6 x10^3/uL (4.8-10.8)
[2017-12-01] MEDS: INSULIN ASPART 300 UNIT/3 ML PEN SUBQ SCH ×3 (07:01→12:23)
[2017-12-01 07:17] LABS: ALBUMIN/GLOBULIN RATIO 0.9 (1.0-2.2); ALKALINE PHOSPHATASE 79 IU/L (42-121); ALT ALANINE AMINOTRANSFERASE 22 IU/L (10-60); AST ASPARTATE AMINOTRANSFERASE 21 IU/L (10-42); BILIRUBIN,TOTAL 0.4 mg/dL (0.2-1.0); BUN - BLOOD UREA NITROGEN 14 mg/dL (6-20); CALCIUM 8.1 mg/dL (8.5-10.3); CARBON DIOXIDE - CO2 25 mmol/L (21-32); CHLORIDE 107 mmol/L (101-111); CREATININE 0.6 mg/dL (0.4-1.0); GFR - MDRD 107 (>89); GLUCOSE 105 mg/dL (70-100); LIPASE 26 U/L (22-51); SODIUM 138 mmol/L (135-145); TOTAL PROTEIN 6.2 g/dL (6.7-8.2)
[2017-12-01 07:18] LABS: CRP - C-REACTIVE PROTEIN < 1.0 mg/dL (0-1.0)
[2017-12-01 08:20] VITALS: BP 118/74
[2017-12-01] MEDS ORDERED: ISOSORBIDE MONONITRATE ER 30 MG TABLET PO SCH (09:00)
[2017-12-01] MEDS ORDERED: ATORVASTATIN 40 MG TABLET PO SCH (09:00)
[2017-12-01] MEDS ORDERED: LISINOPRIL 5 MG TABLET PO SCH (09:00)
[2017-12-01] MEDS ORDERED: INSULIN GLARGINE 300 UNIT/3 ML PEN SUBQ SCH (09:00)
[2017-12-01] MEDS ORDERED: METOPROLOL SUCCINATE 50 MG TABLET PO SCH (09:00)
[2017-12-01] MEDS: POLYETHYLENE GLYCOL 3350 17 GM PACKET PO SCH (09:17)
[2017-12-01] MEDS: NORTRIPTYLINE 25 MG CAPSULE PO SCH (09:18)
[2017-12-01] MEDS: ASPIRIN CHEW 81 MG TABLET PO SCH (09:19)
[2017-12-01] MEDS: CLOPIDOGREL 75 MG TABLET PO SCH (09:20)
[2017-12-01] MEDS: GI COCKTAIL 120 ML BOTTLE PO SCH (09:21)
== END 2017-12-01 13:40 | disposition home or self-care (01) ==
LOC: EDBD → EDUNIT# → ED 15:13 → OBS 17:13
PROVIDERS: ADMIT Nurse Practitioner; ATTEND Nurse Practitioner
DX: I20.0 Unstable angina (principal); I10 Essential (primary) hypertension; I25.2 Old myocardial infarction; Z95.5 Presence of coronary angioplasty implant and graft; E11.9 Type 2 diabetes mellitus without complications; Z79.4 Long term (current) use of insulin; Z79.82 Long term (current) use of aspirin; G47.33 Obstructive sleep apnea (adult) (pediatric); M79.7 Fibromyalgia; K21.9 Gastro-esophageal reflux disease without esophagitis; Z91.19 Patient's noncompliance with other medical treatment and regimen; G43.909 Migraine, unspecified, not intractable, without status migrainosus; F32.9 Major depressive disorder, single episode, unspecified; E66.01 Morbid (severe) obesity due to excess calories; Z68.37 Body mass index [BMI] 37.0-37.9, adult; Z87.891 Personal history of nicotine dependence; E78.5 Hyperlipidemia, unspecified; Z79.02 Long term (current) use of antithrombotics/antiplatelets
CPT/HCPCS: 36415; 71046; 80053; 80061; 83036; 83690; 83880; 84443; 84484; 85025; 86140; 93005; 93306; 96360; 96361; 99283; 99284; A9270; G0378; J1815; 83721

== ENCOUNTER 2017-12-26 06:29 | Emergency (ER) | payer MEDICAID ==
[2017-12-26 06:40] VITALS: BP 136/83
[2017-12-26] MEDS ORDERED: HYDROcod/ACETAM 5/325 MG TABLET PO STA (07:35)
--- NOTE | 2017-12-26 07:48 | ED Physician Documentation ---
History of Present Illness - Stated complaint Stated Complaint: R FOOT SWELLING/PX - Chief complaint Chief Complaint: Ext Problem - Additonal information Additional information: hx from pt 47 f pmhx CAD stents 10/21/17, HTN HLD DM GERD PUD, COPD RAMYA long standing lateral right foot pain has been worked up - xray MRI etc - no findings per pt pain is severe today no new injury etc no leg swelling states when her pain acts up she usually comes is and gets some vicodin Review of Systems Constitutional: denies: Fever Cardiac: denies: Chest pain / pressure (better now after cardiac stents) Respiratory: denies: Dyspnea GI: denies: Abdominal Pain Musculoskeletal: reports: Extremity pain Endocrine: denies: Easy bruising / bleeding Immunocompromised: denies: Immunocompromised PD PAST MEDICAL HISTORY - Past Medical History Past Medical History: Yes Cardiovascular: Hypertension, High cholesterol, Arrhythmia, Other Respiratory: Sleep apnea, CPAP use, Other Neuro: Headaches, Migraines, Peripheral neuropathy Endocrine/Autoimmune: Type 2 diabetes, Other GI: GERD, GI bleed, Ulcers, Colon polyps, Hemorrhoids 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 : Chronic bladder infection, Nocturia, Frequency HEENT: Chronic vision loss, Chronic sinusitis Psych: Depression, Anxiety, Post traumatic stress disorder Musculoskeletal: Fibromyalgia, Fatigue Derm: None - Past Surgical History Past Surgical History: Yes General: Colonoscopy, EGD Ortho: Other Cardiovascular: Coronary stent, Cardiac catheterization, Angioplasty HEENT: Myringotomy (tubes) - Present Medications Home Medications: Ambulatory Orders Medication Instructions Recorded Confirmed Insulin Lispro [Humalog] 12 - 45 unit SQ QID 07/19/12 11/29/17 Butalb/Acetaminophen/Caffeine 1 each PO Q6H PRN #10 capsule 05/23/14 11/29/17 [Fioricet 50-300-40 mg Capsule] Albuterol [Ventolin Hfa] 2 puffs INH Q4H PRN 09/03/14 11/29/17 Cholecalciferol (Vitamin D3) 5,000 units PO DAILY 07/01/15 11/29/17 [Vitamin D3] Gabapentin [Neurontin] 1,200 mg PO TID 07/01/15 11/29/17 Cyclobenzaprine HCl 10 mg PO TID PRN 06/05/16 11/29/17 Nortriptyline HCl 50 mg PO DAILY 10/13/17 11/29/17 Ranitidine HCl [Zantac] 300 mg PO BID 10/13/17 11/29/17 Aspirin 81 mg PO DAILY 11/29/17 11/29/17 Clopidogrel Bisulfate [Clopidogrel] 75 mg PO DAILY 11/29/17 11/29/17 Nicotine 14 mg Patch [Nicoderm] 1 each TOP Q24H 11/29/17 11/29/17 Atorvastatin Calcium 80 mg PO DAILY #60 tablet 12/01/17 Insulin Glargine [Lantus Solostar] 45 unit SUBQ DAILY #0 pen 12/01/17 Isosorbide Mononitrate [Isosorbide 120 mg PO DAILY #30 tab.er.24h 12/01/17 Mononitrate ER] Lisinopril 2.5 mg PO DAILY #30 tablet 12/01/17 Metoprolol Succinate [Toprol Xl] 50 mg PO BIDWM #60 tablet 12/01/17 - Allergies Allergies/Adverse Reactions: Allergies Allergy/AdvReac Type Severity Reaction Status Date / Time Fish Containing Products Allergy Severe Headache Verified 12/26/17 06:43 meperidine HCl * AdvReac Severe Respiratory Verified 12/26/17 06:43 [From Demerol] cephalexin monohydrate * AdvReac Intermediate Hives Verified 12/26/17 06:43 [From Keflex] Sulfa (Sulfonamide AdvReac Intermediate Hives Verified 12/26/17 06:43 Antibiotics) pecan Allergy Severe Unknown Uncoded 12/26/17 06:43 Seafood Allergy Severe Anaphylaxis Uncoded 12/26/17 06:43 Walnuts Allergy Severe Headache Uncoded 12/26/17 06:43 tape AdvReac Rash Uncoded 12/26/17 06:43 - Social History Does the pt smoke?: Yes Smoking Status: Current every day smoker Does the pt drink ETOH?: Yes Does the pt have substance abuse?: No - Immunizations Immunizations are current?: Yes Immunizations: TDAP >10years/unknown - POLST Patient has POLST: No POLST Status: Full Code PD ED PE NORMAL - Vitals Vital signs reviewed: Yes - Cardiac Cardiac: RRR - Respiratory Respiratory: No respiratory distress, Clear bilaterally - Extremities Extremities: Other (right foot s redness wound swelling ecchymosis, strong pulses, brisk cap refill, calf not swollen NT) - Neuro Neuro: Alert and oriented X 3 Eye Opening: Spontaneous Motor: Obeys Commands Verbal: Oriented GCS Score: 15 Results - Vitals Vitals: Vital Signs - 24 hr 12/26/17 06:35 Temperature 36.4 C L Heart Rate 99 Respiratory 15 Rate Blood Pressure 136/83 H O2 Saturation 98 Oxygen O2 Source Room air PD MEDICAL DECISION MAKING - ED course ED course: explained to pt could not rx viocodin for ongoing medical problem but gave a dose in the ER suggest MAIRA ice and crutches to dec wt bearing stress Departure - Departure Disposition: 01 Home, Self Care Clinical Impression: Chronic pain in right foot Condition: Good Follow-Up: Anitra Ocampo, MARINE 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
== END 2017-12-26 08:24 | disposition home or self-care (01) ==
LOC: ED 06:29
DX: G89.29 Other chronic pain (principal); M25.571 Pain in right ankle and joints of right foot; I10 Essential (primary) hypertension; E11.9 Type 2 diabetes mellitus without complications; F17.200 Nicotine dependence, unspecified, uncomplicated; Z79.4 Long term (current) use of insulin; Z79.82 Long term (current) use of aspirin
CPT/HCPCS: 99283; A9270

== ENCOUNTER 2018-03-26 21:03 | Emergency (ER) | payer MEDICAID ==
--- NOTE | 2018-03-26 21:15 | ED Physician Documentation ---
PD HPI LOWER EXT INJURY - Stated complaint Stated Complaint: RT HIP PX - Chief complaint Chief Complaint: Ext Problem - History obtained from History obtained from: Patient - History of Present Illness PD HPI LOW EXT INJURY LOCATION: Right, Hip (lateral aspect mostly, but some pain in hip socket as well.) Type of injury: Other (She had been doing some more walking than usual with cardiac rehab starting this past week. She states she was just walking at a flat level on a treadmill on Wednesday and seemed generally sore but not having particular pain at the hip. She has been having ongoing pain at the left hip from a labral tear with prior surgical repair by Dr. Espinosa. She is having cardiac rehab at this time with the prior pacer placed. Tonight she noticed abrupt onset of pain at the lateral aspect of the right hip just as she was straightening her leg and felt a pop and then the pain. She was having pain with weightbearing and range of motion of the hip since that time.). No: Fall, Twist Timing - onset: How many hours ago (couple hours ago had abrupt worsening of pain lateral right hip) Timing - details: Abrupt onset, Still present Worsened by: Moving, Palpating Associated symptoms: No: Weakness, Numbness, Swelling Contributing factors: Prior ortho surgery (on left labrum of the hip). No: Anticoagulated Similar symptoms before: Has not had sx before (no problems with right hip previously) Review of Systems Constitutional: denies: Fever, Chills Nose: denies: Rhinorrhea / runny nose, Congestion Throat: denies: Sore throat Respiratory: denies: Cough GI: denies: Vomiting, Diarrhea Skin: denies: Rash, Lesions PD PAST MEDICAL HISTORY - Past Medical History Cardiovascular: Hypertension, High cholesterol, Arrhythmia, Other Respiratory: Sleep apnea, CPAP use, Other Neuro: Headaches, Migraines, Peripheral neuropathy Endocrine/Autoimmune: Type 2 diabetes, Other GI: GERD, GI bleed, Ulcers, Colon polyps, Hemorrhoids 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 : Chronic bladder infection, Nocturia, Frequency HEENT: Chronic vision loss, Chronic sinusitis Psych: Depression, Anxiety, Post traumatic stress disorder Musculoskeletal: Fibromyalgia, Fatigue Derm: None - Past Surgical History Past Surgical History: Yes General: Colonoscopy, EGD Ortho: Other Cardiovascular: Coronary stent, Cardiac catheterization, Angioplasty HEENT: Myringotomy (tubes) - Present Medications Home Medications: Ambulatory Orders Medication Instructions Recorded Confirmed Insulin Lispro [Humalog] 12 - 45 unit SQ QID 07/19/12 11/29/17 Butalb/Acetaminophen/Caffeine 1 each PO Q6H PRN #10 capsule 05/23/14 11/29/17 [Fioricet 50-300-40 mg Capsule] Albuterol [Ventolin Hfa] 2 puffs INH Q4H PRN 09/03/14 11/29/17 Cholecalciferol (Vitamin D3) 5,000 units PO DAILY 07/01/15 11/29/17 [Vitamin D3] Gabapentin [Neurontin] 1,200 mg PO TID 07/01/15 11/29/17 Cyclobenzaprine HCl 10 mg PO TID PRN 06/05/16 11/29/17 Nortriptyline HCl 50 mg PO DAILY 10/13/17 11/29/17 Ranitidine HCl [Zantac] 300 mg PO BID 10/13/17 11/29/17 Aspirin 81 mg PO DAILY 11/29/17 11/29/17 Clopidogrel Bisulfate [Clopidogrel] 75 mg PO DAILY 11/29/17 11/29/17 Nicotine 14 mg Patch [Nicoderm] 1 each TOP Q24H 11/29/17 11/29/17 Atorvastatin Calcium 80 mg PO DAILY #60 tablet 12/01/17 Insulin Glargine [Lantus Solostar] 45 unit SUBQ DAILY #0 pen 12/01/17 Isosorbide Mononitrate [Isosorbide 120 mg PO DAILY #30 tab.er.24h 12/01/17 Mononitrate ER] Lisinopril 2.5 mg PO DAILY #30 tablet 12/01/17 Metoprolol Succinate [Toprol Xl] 50 mg PO BIDWM #60 tablet 12/01/17 Hydrocodone/Acetaminophen [[place] 1 each PO Q6H PRN #15 tablet 03/26/18 5-325 Tablet] Naproxen 375 mg PO BID #20 tablet 03/26/18 - Allergies Allergies/Adverse Reactions: Allergies Allergy/AdvReac Type Severity Reaction Status Date / Time Fish Containing Products Allergy Severe Headache Verified 03/26/18 21:09 meperidine HCl * AdvReac Severe Respiratory Verified 03/26/18 21:09 [From Demerol] cephalexin monohydrate * AdvReac Intermediate Hives Verified 03/26/18 21:09 [From Keflex] Sulfa (Sulfonamide AdvReac Intermediate Hives Verified 03/26/18 21:09 Antibiotics) pecan Allergy Severe Unknown Uncoded 03/26/18 21:09 Seafood Allergy Severe Anaphylaxis Uncoded 03/26/18 21:09 Walnuts Allergy Severe Headache Uncoded 03/26/18 21:09 tape AdvReac Rash Uncoded 03/26/18 21:09 - Social History Does the pt smoke?: Yes Smoking Status: Current every day smoker Does the pt drink ETOH?: Yes Does the pt have substance abuse?: No - Immunizations Immunizations are current?: Yes Immunizations: TDAP >10years/unknown - POLST Patient has POLST: No POLST Status: Full Code PD ED PE NORMAL - Vitals Vital signs reviewed: Yes - General General: Alert and oriented X 3, Well developed/nourished, Other (seems uncomfortable with any movement at right hip, mostly with flexion and abduction. Not hurting as much with rotation. ) - Neck Neck: Supple, no meningeal sign, No adenopathy - Cardiac Cardiac: RRR, No murmur - Respiratory Respiratory: Clear bilaterally - Abdomen Abdomen: Soft, Non tender - Back Back: No CVA TTP, No spinal TTP - Derm Derm: Normal color, Warm and dry, No rash - Extremities Extremities: No edema, No calf tenderness / cord, Other (The right hip is tender over the lateral aspect at the greater trochanter. There is no obvious deformity there. Passive range of motion of the hip does not really hurt. Active motion hurts mostly with abduction and flexion against resistance. I did inject the area with some Marcaine which provided some improvement in her pain.) - Neuro Neuro: Alert and oriented X 3, No motor deficit, No sensory deficit, Normal speech Results - Vitals Vitals: Vital Signs - 24 hr 03/26/18 03/26/18 21:06 23:12 Temperature 36.0 C L Heart Rate 106 H 94 Respiratory 16 16 Rate Blood Pressure 137/75 H 130/92 H O2 Saturation 97 95 Oxygen O2 Source Room air - Rads (name of study) right hip Radiology: Prelim report reviewed (no acute bony process), See rad report PD MEDICAL DECISION MAKING - ED course Complexity details: reviewed results (right hip), considered differential (Focally tender along the lateral aspect at the greater trochanter. She had had a sudden pop feeling before the pain so consider the possibility of an avulsed devries or disruption of 1 of the tendons that insert. She does have some medial hip pain as well that she says feels like a prior labral tear on the left side. However that would not account for the tenderness on the greater trochanter. I believe she mostly has some bursitis or tendinitis. She states steroids increase her sugars quite a bit so we deferred a steroid injection at the bursa area. We will go some anti-inflammatories and pain medicines.), d/w patient Departure - Departure Disposition: 01 Home, Self Care Clinical Impression: Acute right hip pain Condition: Stable Record reviewed to determine appropriate education?: Yes Instructions: Trochanteric Bursitis Follow-Up: Anitra Ocampo ARNP [Primary Care Provider] - Isra Zazueta DO [Physician No Access] - Prescriptions: Hydrocodone/Acetaminophen [[place] 5-325 Tablet] 1 each PO Q6H PRN #15 tablet PRN Reason: Pain Naproxen 375 mg PO BID #20 tablet Comments: You could use some naproxen twice daily for just short-term like for 5 days. Add Tylenol or hydrocodone as needed for pain. Follow-up with Dr. Zazueta regarding this hip pain. The x-ray appeared normal. However we did not see the soft tissue and it seems likely to be a tendinitis or bursitis at the trochanter of the hip. The pop he felt may have been some partial tear of tendon. Consider a labral injury although the location would not be quite right for that. Follow-up with Dr. Zazueta regarding further treatment and evaluation. Discharge Date/Time: 03/26/18 23:20
[2018-03-26] MEDS ORDERED: HYDROcod/ACETAM 5/325 MG TABLET PO STA (21:38)
[2018-03-26] MEDS ORDERED: NAPROXEN 250 MG TABLET PO STA (21:38)
[2018-03-26] MEDS ORDERED: HYDROcod/ACET 5/325 Prepack 4 PO STA (22:31)
--- NOTE | 2018-03-26 22:50 | XRAY Report ---
Reason: abrupt pop and pain right hip today Procedure Date: 03/26/2018 Accession Number: [id number] / [id number] Procedure: XR - Hip w/Pelvis 2-3V RT CPT Code: FULL RESULT: EXAM: RIGHT HIP AND PELVIS RADIOGRAPHY EXAM DATE: 03/26/2018 10:23 PM. HISTORY: Abrupt pop and pain right hip today. COMPARISONS: HIP 2 VIEW LT 01/13/2014 11:42 PM. TECHNIQUE: 1 view of the pelvis and 1 view of the hip. FINDINGS: Bones: Normal. No fracture or bone lesion. Joints: The bilateral hip, pubis symphysis, and sacroiliac joints are preserved. Soft Tissues: Normal. No soft tissue swelling. IMPRESSION: Negative pelvis and hip radiography. RADIA
[2018-03-26 23:13] VITALS: BP 130/92
== END 2018-03-26 23:20 | disposition home or self-care (01) ==
LOC: ED 21:03
DX: M25.551 Pain in right hip (principal); I10 Essential (primary) hypertension; E78.00 Pure hypercholesterolemia, unspecified; E11.42 Type 2 diabetes mellitus with diabetic polyneuropathy; Z95.5 Presence of coronary angioplasty implant and graft; Z79.4 Long term (current) use of insulin; F17.200 Nicotine dependence, unspecified, uncomplicated
CPT/HCPCS: 73502; 99283; A9270

== ENCOUNTER 2018-05-03 08:00 | Outpatient (CLI) | payer MEDICAID ==
[2018-05-04 10:13] LABS: BILIRUBIN,URINE NEGATIVE (NEGATIVE); GLUCOSE, URINE (UA) >=1000 mg/dL (NEGATIVE); KETONES,URINE (UA) NEGATIVE (NEGATIVE); LEUKOCYTE ESTERASE, URINE NEGATIVE (NEGATIVE); NITRITE,URINE NEGATIVE (NEGATIVE); OCCULT BLOOD,URINE LARGE (NEGATIVE); PH,URINE 6.5 PH (5.0-7.5); PROTEIN,URINE NEGATIVE (NEGATIVE); UROBILINOGEN,URINE 0.2 (NORMAL) E.U./dL (NORMAL)
[2018-05-04 10:18] LABS: CLARITY,URINE HAZY (CLEAR)
[2018-05-04 10:22] LABS: BACTERIA,URINE Moderate /HPF (None Seen); SQUAMOUS EPITHELIAL CELL,UR NONE SEEN (<= Few)
== END 2018-05-03 23:59 ==
LOC: LAB.R 08:00
PROVIDERS: ATTEND Nurse Practitioner Family
DX: R31.9 Hematuria, unspecified (principal)
CPT/HCPCS: 81001; 87086; 87181

== ENCOUNTER 2018-09-29 12:52 | Outpatient (CLI) | payer OTHER ==
--- NOTE | 2018-09-30 08:52 | DEXA Report ---
Reason: MENORRHAGIA/MENOMETRORRHAGIA, PREVENTIVE CARE Procedure Date: 09/29/2018 Accession Number: [id number] / [id number] Procedure: DEX - Dexa Spine and/or Hip CPT Code: FULL RESULT: EXAM: Dexa Spine and/or Hip DATE: 09/29/2018 1:37 PM CLINICAL HISTORY: MENORRHAGIA/MENOMETRORRHAGIA, PREVENTIVE CARE TECHNIQUE: Dual energy x-ray absorptiometry (DXA) was performed on a Prescription Eyewear System. Regions measured are the AP Spine, femoral neck, and if needed forearm. COMPARISON: None. In accordance with the International Society for Clinical Densitometry (ISCD) guidelines, data from previous exams may be reanalyzed using current recommendations and techniques. This is done to allow a more accurate basis for comparison with the current study. FINDINGS: The data for the lumbar spine is as follows: BMD (g/cm/cm) T-SCORE Z-SCORE REGION L1 0.906 -1.9 -2.4 L2 1.020 -1.5 -2.1 L3 1.012 -1.6 -2.1 L4 0.968 -1.9 -2.5 TOTAL 0.978 -1.7 -2.2 NOTE: All evaluable vertebrae are used for classification The data for the hip is as follows: BMD (g/cm/cm) T-SCORE Z-SCORE REGION Neck 0.827 -1.5 -1.4 TOTAL 0.854 -1.2 -1.4 NOTE: The femoral neck or total proximal femur, whichever is lowest, is used for classification. IMPRESSION: THE WHO CLASSIFICATION BASED ON THE INTERNATIONAL REFERENCE STANDARD IS OSTEOPENIA. THE FRACTURE RISK IS INCREASED. RECOMMENDATION: Patients with diagnosis of osteoporosis or osteopenia should have regular bone mineral density assessment. For those eligible for Medicare, routine testing is allowed once every 2 years. Testing frequency can be increased for patients who have rapidly progressing disease or for those who are receiving medical therapy to restore bone mass. COMMENT: World Health Organization (WHO) definitions for osteoporosis and osteopenia: NORMAL BMD: T-score at -1.0 or higher, fracture risk is low OSTEOPENIA BMD: T-score between -1.0 and -2.5, fracture risk is increased. OSTEOPOROSIS BMD: T-score at -2.5 or lower, fracture risk is high. National Osteoporosis Foundation recommends: 1. Obtain adequate dietary calcium (at least 1200 mg per day) and vitamin D (400-800 international units per day). 2. Participate, as appropriate, in regular weightbearing and muscle-strengthening exercise. 3. Avoid tobacco use and reduce alcohol and caffeine intake. 4. For more detailed information see the website at www.NOF.org.
== END 2018-09-29 12:53 | disposition home or self-care (01) ==
LOC: DI 12:52
PROVIDERS: ATTEND Registered Nurse
DX: M85.89 Other specified disorders of bone density and structure, multiple sites (principal); N92.4 Excessive bleeding in the premenopausal period
CPT/HCPCS: 77080

== ENCOUNTER 2018-10-28 18:53 | Emergency (ER) | payer OTHER ==
--- NOTE | 2018-10-28 20:19 | ED Physician Documentation ---
History of Present Illness - Stated complaint Stated Complaint: LT HIP/RUNNING/ANXIETY - Chief complaint Chief Complaint: Ext Problem - Additonal information Additional information: This is a 48-year-old female with a history of left hip surgery for torn labrum, who presents with left hip pain as well as anxiety. 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 She has been able to ambulate, but the hip hurts and feels stiff. She denies weakness, numbness, or tingling. No falls, no impact to the hip. No back pain. 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 : Chronic bladder infection, Nocturia, Frequency HEENT: Chronic vision loss, Chronic sinusitis Psych: Depression, Anxiety, Post traumatic stress disorder Musculoskeletal: Fibromyalgia, Fatigue Derm: None - Past Surgical History Past Surgical History: Yes General: Colonoscopy, EGD Ortho: Other Cardiovascular: Coronary stent, Cardiac catheterization, Angioplasty HEENT: Myringotomy (tubes) - Present Medications Home Medications: Ambulatory Orders Medication Instructions Recorded Confirmed RX: Insulin Lispro [Humalog] 12 - 45 unit SQ QID 07/19/12 11/29/17 RX: Butalb/Acetaminophen/Caffeine 1 each PO Q6H PRN #10 capsule 05/23/14 11/29/17 [Fioricet 50-300-40 mg Capsule] RX: Albuterol [Ventolin Hfa] 2 puffs INH Q4H PRN 09/03/14 11/29/17 RX: Cholecalciferol (Vitamin D3) 5,000 units PO DAILY 07/01/15 11/29/17 [Vitamin D3] RX: Gabapentin [Neurontin] 1,200 mg PO TID 07/01/15 11/29/17 RX: Cyclobenzaprine HCl 10 mg PO TID PRN 06/05/16 11/29/17 RX: Nortriptyline HCl 50 mg PO DAILY 10/13/17 11/29/17 RX: Ranitidine HCl [Zantac] 300 mg PO BID 10/13/17 11/29/17 RX: Aspirin 81 mg PO DAILY 11/29/17 11/29/17 RX: Clopidogrel Bisulfate 75 mg PO DAILY 11/29/17 11/29/17 [Clopidogrel] RX: Nicotine 14 mg Patch [Nicoderm] 1 each TOP Q24H 11/29/17 11/29/17 Isosorbide Mononitrate [Isosorbide 120 mg PO DAILY #30 tab.er.24h 12/01/17 Mononitrate ER] RX: Atorvastatin Calcium 80 mg PO DAILY #60 tablet 12/01/17 RX: Insulin Glargine [Lantus 45 unit SUBQ DAILY #0 pen 12/01/17 Solostar] RX: Lisinopril 2.5 mg PO DAILY #30 tablet 12/01/17 RX: Metoprolol Succinate [Toprol 50 mg PO BIDWM #60 tablet 12/01/17 Xl] Hydrocodone/Acetaminophen [[place] 1 each PO Q6H PRN #15 tablet 03/26/18 5-325 Tablet] RX: Naproxen 375 mg PO BID #20 tablet 03/26/18 RX: Hydroxyzine Pamoate [Vistaril] 50 mg PO BID PRN #10 capsule 10/28/18 - Allergies Allergies/Adverse Reactions: Allergies Allergy/AdvReac Type Severity Reaction Status Date / Time Fish Containing Products Allergy Severe Headache Verified 03/26/18 21:09 meperidine HCl * AdvReac Severe Respiratory Verified 03/26/18 21:09 [From Demerol] cephalexin monohydrate * AdvReac Intermediate Hives Verified 03/26/18 21:09 [From Keflex] Sulfa (Sulfonamide AdvReac Intermediate Hives Verified 03/26/18 21:09 Antibiotics) pecan Allergy Severe Unknown Uncoded 03/26/18 21:09 Seafood Allergy Severe Anaphylaxis Uncoded 03/26/18 21:09 Walnuts Allergy Severe Headache Uncoded 03/26/18 21:09 tape AdvReac Rash Uncoded 03/26/18 21:09 - Social History Does the pt smoke?: Yes Smoking Status: Current every day smoker Does the pt drink ETOH?: Yes Does the pt have substance abuse?: No - Immunizations Immunizations are current?: Yes Immunizations: TDAP >10years/unknown - POLST Patient has POLST: No POLST Status: Full Code PD ED PE NORMAL - Vitals Vital signs reviewed: Yes - General General: Alert and oriented X 3, No acute distress - HEENT HEENT: PERRL - Cardiac Cardiac: Strong equal pulses - Respiratory Respiratory: No respiratory distress - Abdomen Abdomen: Soft, Non distended - Derm Derm: Warm and dry - Extremities Extremities: Other (Extremities are symmetric, there is no notable edema or skin changes to the left hip. Patient has some tenderness over the left trochanter and down in the track of the IT band. Full active range of motion of the knee, ankle. Patient is able to flex and extend the hip, and ambulate with some discomfortSensation to light touch intact over the entire extremity, Distal strength is 5 out of 5, capillary refill brisk) - Neuro Neuro: Alert and oriented X 3 - Psych Psych: Normal mood, Normal affect Results - Vitals Vitals: Vital Signs - 24 hr 10/28/18 10/28/18 19:18 20:34 Temperature 36.9 C Heart Rate 96 90 Respiratory 16 16 Rate Blood Pressure 142/83 H 138/80 H O2 Saturation 97 100 Oxygen O2 Source Room air PD MEDICAL DECISION MAKING - ED course Complexity details: considered differential (Anxiety, phobia, strain, sprain, labral tear, arthritis, fracture, dislocation) ED course: On examination patient is well-appearing, she has a neurovascular intact limb, she is able to ambulate. She has no significant bony tenderness, and the fact that she is able to ambulate and has no trauma to the region makes fracture highly unlikely. She has normal range of motion of the hip but no signs of dislocation. Overall I am suspicious that she has an exacerbation of her pain due to combination of her past surgery/degenerative changes and her straining event today. It is also possible that she has an IT band or leg muscle strain. Because she has good range of motion and is otherwise well-appearing we should trial some rest, ice, elevation, and over the counter pain control. She should follow-up with her primary care provider and she may need referral to sports medicine or further imaging in the future if her symptoms are progressive or not improving. She takes clopidogrel so I advised her not to use nonsteroidal anti- inflammatories, stick to Tylenol and ice. Regarding her anxiety/phobia of rats, I discussed that she should use mindfulness and breathing techniques first, I did prescribe a small number of hydroxyzine if needed. I discussed the risks of this medication. I discussed return precautions, patient agreed with this plan and was discharged home Departure - Departure Disposition: Home, Self Care Clinical Impression: Pain in extremity, Anxiety Condition: Good Instructions: ED RICE Follow-Up: Geri Mata ARNP [Primary Care Provider] - Within 1 week Prescriptions: RX: Hydroxyzine Pamoate [Vistaril] 50 mg PO BID PRN #10 capsule PRN Reason: Anxiety Comments: You were seen today for hip pain as well as anxiety. Please rest ice and el evate the hip and avoid straining it further. You can perform gentle stretching and range of motion exercises. Follow-up with your primary care provider if you are having continued symptoms, you may need referral to sports medicine if your symptoms are persistent. Regarding your anxiety, practice mindfulness techniques and breathing exercises. You may try the hydroxyzine if needed, but this medication can cause drowsiness so avoid taking it regularly, and do not drive or operate machinery after taking it. Discharge Date/Time: 10/28/18 20:34
[2018-10-28] MEDS ORDERED: ACETAMINOPHEN 325 MG TABLET PO STA (20:20)
[2018-10-28] MEDS ORDERED: hydrOXYzine PAMOATE 25 MG CAPSULE PO STA (20:23)
[2018-10-28 20:36] VITALS: BP 138/80
== END 2018-10-28 20:34 | disposition home or self-care (01) ==
LOC: ED 18:53
DX: M25.552 Pain in left hip (principal); F41.9 Anxiety disorder, unspecified; I10 Essential (primary) hypertension; E11.9 Type 2 diabetes mellitus without complications; Z79.4 Long term (current) use of insulin; Z79.82 Long term (current) use of aspirin; F17.200 Nicotine dependence, unspecified, uncomplicated
CPT/HCPCS: 99282; 99284; A9270

== ENCOUNTER 2018-11-11 08:00 | Outpatient (CLI) | payer OTHER ==
[2018-11-11 20:21] LABS: H. PYLORIS ANTIGEN STL NEGATIVE (Negative)
== END 2018-11-11 23:59 | disposition home or self-care (01) ==
LOC: LAB.R 08:00
PROVIDERS: ATTEND Family Medicine
DX: R11.2 Nausea with vomiting, unspecified (principal)
CPT/HCPCS: 87338

== ENCOUNTER 2019-01-20 14:26 | Outpatient (CLI) | payer OTHER ==
--- NOTE | 2019-01-23 08:16 | Mammography Report ---
Reason: SCREENING MAMMO Procedure Date: 01/20/2019 Accession Number: [id number] / [id number] Procedure: [facility] - Screening Mammo w/Naman CPT Code: Final Report FULL RESULT: EXAM: Screening Mammo w/Naman DATE: 01/20/2019 3:13 PM CLINICAL HISTORY: Routine screening. No reported personal history of breast cancer. Family history breast cancer in mother at age 55 and maternal grandmother at age 40. TECHNIQUE: (B) - Bilateral CC and MLO views were obtained. COMPARISON: None PARENCHYMAL PATTERN: (A) - The breasts demonstrate scattered fibroglandular densities bilaterally. FINDINGS: Bilateral breasts: There are no suspicious masses, calcifications, or areas of distortion. IMPRESSION: Negative examination. BI-RADS category 1. RECOMMENDATION: (ANNUAL) - Recommend routine annual screening mammography. Given family history, patient may be at increased risk for development of breast cancer. Formal risk assessment with a genetic counselor should be considered; patient may benefit from advanced screening practices and/or risk reduction strategies if there is sufficient assessed risk. BI-RADS CATEGORY: (1) - Negative. STANDARD QUALIFYING STATEMENTS: 1. This examination was not reviewed with the aid of Computer-Aided Detection (CAD). 2. A negative or benign imaging report should not preclude biopsy if clinically suspicious findings are present. 3. Dense breasts may obscure an underlying neoplasm. 4. This examination was reviewed with the aid of 3D breast imaging (tomosynthesis).
== END 2019-01-20 14:27 | disposition home or self-care (01) ==
LOC: DI 14:26
DX: Z12.31 Encounter for screening mammogram for malignant neoplasm of breast (principal); Z80.3 Family history of malignant neoplasm of breast
CPT/HCPCS: 77063; 77067

== ENCOUNTER 2019-01-21 16:21 | Emergency (ER) | payer OTHER ==
[2019-01-21] MEDS ORDERED: KETOROLAC 60 MG/2 ML VIAL IM STA (18:54)
--- NOTE | 2019-01-21 18:55 | ED Physician Documentation ---
PD HPI Fall - Stated complaint Stated Complaint: GLF,BACK PX,R LEG PX - Chief complaint Chief Complaint: General - History obtained from History obtained from: Patient - History of Present Illness Mechanism of injury: Slipped Fall distance: Standing position Where injury occurred: Home Timing - onset: Today Injury(ies) location: Head, Neck, Chest, Back, Right Lower Extremity Pain level now: 9 Quality of pain: Pain Associated symptoms: Neck pain. No: LOC, Seizures, Weakness, Paresthesias, Dyspnea, Nausea / vomiting Worsens with: Movement Recently seen: Not recently seen - Additional information Additional information: This is a 48-year-old woman who presents with her complains that she was walking down the steps this afternoon approximately 3 hours ago when she slipped on the wet steps and came down landing on the right side of her butt and backward onto her right chest and hit the back of her head on the steps. At first she thought she was okay and she was in the process of taking her dog to the vet so she got in the car and started to drive but could not drive straight she kept going to the right. She called her on the phone and returned home and had them bring her straight here. She has not taken any medications for the pain but did take an [id number] Tylenol with codeine from [facility] this morning because she was having a bit of a migraine. Her biggest pain right now is in her neck the right side of her but her right hip and the back of her right thigh as well as her right rib. She denies shortness of breath. She denies passing out and has a headache stating that her brain got "shaken up". She was nauseous but had no vomiting and she is eaten something here which she says she had to do because she was diabetic. She has not been dizzy. She denies any urinary incontinence or hematuria. No dysuria. Her pain in her right hip has improved since she is been waiting to be evaluated. She denies numbness or tingling into her arms or legs and denies prior surgical intervention on her back Review of Systems Respiratory: denies: Dyspnea GI: reports: Nausea. denies: Abdominal Pain, Vomiting : denies: Dysuria, Incontinent, Hematuria Skin: denies: Rash Musculoskeletal: reports: Neck pain, Back pain Neurologic: reports: Headache, Head injury. 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 : Chronic bladder infection, Nocturia, Frequency HEENT: Chronic vision loss, Chronic sinusitis Psych: Depression, Anxiety, Post traumatic stress disorder Musculoskeletal: Fibromyalgia, Fatigue Derm: None - Past Surgical History Past Surgical History: Yes General: Colonoscopy, EGD Ortho: Other Cardiovascular: Coronary stent, Cardiac catheterization, Angioplasty HEENT: Myringotomy (tubes) - Present Medications Home Medications: Ambulatory Orders Medication Instructions Recorded Confirmed Insulin Lispro [Humalog] 12 - 45 unit SQ QID 07/19/12 11/29/17 Butalb/Acetaminophen/Caffeine 1 each PO Q6H PRN #10 capsule 05/23/14 11/29/17 [Fioricet 50-300-40 mg Capsule] Albuterol [Ventolin Hfa] 2 puffs INH Q4H PRN 09/03/14 11/29/17 Cholecalciferol (Vitamin D3) 5,000 units PO DAILY 07/01/15 11/29/17 [Vitamin D3] Gabapentin [Neurontin] 1,200 mg PO TID 07/01/15 11/29/17 Cyclobenzaprine HCl 10 mg PO TID PRN 06/05/16 11/29/17 Nortriptyline HCl 50 mg PO DAILY 10/13/17 11/29/17 raNITIdine HCl [Zantac] 300 mg PO BID 10/13/17 11/29/17 Aspirin 81 mg PO DAILY 11/29/17 11/29/17 Clopidogrel Bisulfate [Clopidogrel] 75 mg PO DAILY 11/29/17 11/29/17 Nicotine 14 mg Patch [Nicoderm] 1 each TOP Q24H 11/29/17 11/29/17 Atorvastatin Calcium 80 mg PO DAILY #60 tablet 12/01/17 Insulin Glargine [Lantus Solostar] 45 unit SUBQ DAILY #0 pen 12/01/17 Isosorbide Mononitrate [Isosorbide 120 mg PO DAILY #30 tab.er.24h 12/01/17 Mononitrate ER] Lisinopril 2.5 mg PO DAILY #30 tablet 12/01/17 Metoprolol Succinate [Toprol Xl] 50 mg PO BIDWM #60 tablet 12/01/17 Hydrocodone/Acetaminophen [[place] 1 each PO Q6H PRN #15 tablet 03/26/18 5-325 Tablet] Naproxen 375 mg PO BID #20 tablet 03/26/18 Hydroxyzine Pamoate [Vistaril] 50 mg PO BID PRN #10 capsule 10/28/18 Hydrocodone/Acetaminophen 1 - 2 each PO Q6H PRN #14 tablet 01/21/19 [Hydrocodon-Acetaminophen 5-325] - Allergies Allergies/Adverse Reactions: Allergies Allergy/AdvReac Type Severity Reaction Status Date / Time Fish Containing Products Allergy Severe Headache Verified 01/21/19 16:41 shellfish derived Allergy Unknown Verified 01/21/19 16:41 meperidine HCl * AdvReac Severe Respiratory Verified 01/21/19 16:41 [From Demerol] cephalexin monohydrate * AdvReac Intermediate Hives Verified 01/21/19 16:41 [From Keflex] Sulfa (Sulfonamide AdvReac Intermediate Hives Verified 01/21/19 16:41 Antibiotics) pecan Allergy Severe Unknown Uncoded 03/26/18 21:09 Seafood Allergy Severe Anaphylaxis Uncoded 03/26/18 21:09 Walnuts Allergy Severe Headache Uncoded 03/26/18 21:09 tape AdvReac Rash Uncoded 03/26/18 21:09 - Social History Does the pt smoke?: Yes Smoking Status: Current every day smoker Does the pt drink ETOH?: Yes Does the pt have substance abuse?: No - Immunizations Immunizations are current?: Yes Immunizations: TDAP >10years/unknown - POLST Patient has POLST: No POLST Status: Full Code PD ED PE NORMAL - Vitals Vital signs reviewed: Yes - General General: Alert and oriented X 3, No acute distress, Well developed/nourished - HEENT HEENT: Atraumatic, PERRL, EOMI, Moist mucous membranes, Pharynx benign - Neck Neck: Supple, no meningeal sign, No bony TTP, No adenopathy, Other (She is tender with palpation to the right trapezius muscle) - Cardiac Cardiac: RRR, Strong equal pulses - Respiratory Respiratory: No respiratory distress, Clear bilaterally - Abdomen Abdomen: Normal bowel sounds - Derm Derm: Normal color, Warm and dry, No rash, Other (There is a small bruise at the right lateral ribs in the posterior axillary line at about rib 10. 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, No motor deficit, No sensory deficit, Normal speech, Other (Symmetrical quadricep reflexes and Achilles reflexes) - Psych Psych: Normal mood, Normal affect Results - Vitals Vitals: Vital Signs - 24 hr 01/21/19 01/21/19 01/21/19 16:35 18:37 19:09 Temperature 37 C Heart Rate 75 96 86 Respiratory 16 18 16 Rate Blood Pressure 142/74 H 139/92 H 148/81 H O2 Saturation 100 98 97 Oxygen O2 Source Room air - Labs Labs: Laboratory Tests 01/21/19 16:33 Urine Color YELLOW Urine Clarity CLEAR Urine pH 6.5 Ur Specific [place] <=1.005 Urine Protein NEGATIVE Urine Glucose (UA) NEGATIVE Urine Ketones NEGATIVE Urine Occult Blood NEGATIVE Urine Nitrite NEGATIVE Urine Bilirubin NEGATIVE Urine Urobilinogen 0.2 (NORMAL) Ur Leukocyte Esterase NEGATIVE Ur Microscopic Review NOT INDICATED Urine Culture Comments NOT INDICATED - Rads (name of study) R hip Radiology: EMP read contemporaneously (Neg) PD MEDICAL DECISION MAKING - ED course Complexity details: reviewed results, d/w patient ED course: The patient has a multitude of complaints from the fall. She is some bruising a long the ribs. She is not short of breath. She has not seen blood in the urine. I did not feel that chest x-ray was warranted at this time. Her hip x- ray is negative. She was given a dose of Toradol IM. Departure - Departure Disposition: 01 Home, Self Care Clinical Impression: Contusion of rib on right side Qualifiers: Encounter type: initial encounter Qualified Code(s): S20.211A - Contusion of right front wall of thorax, initial encounter Strain, cervical Qualifiers: Encounter type: initial encounter Qualified Code(s): S16.1XXA - Strain of muscle, fascia and tendon at neck level, initial encounter Contusion of hip, right Qualifiers: Encounter type: initial encounter Qualified Code(s): S70.01XA - Contusion of right hip, initial encounter Condition: Good Instructions: ED Contusion Chest Wall, ED Sprain Strain Neck, ED Contusion Rib Follow-Up: Geri Mata ARNP [Primary Care Provider] - Prescriptions: Hydrocodone/Acetaminophen [Hydrocodon-Acetaminophen 5-325] 1 - 2 each PO Q6H PRN #14 tablet PRN Reason: pain Comments: Ice to the sore areas. Continue to take your anti-inflammatory [id number]. You have been given a prescription for a couple of hydrocodone tablets which you can use if needed for additional pain. Splint the chest if you need it hurts to cough or laugh. Follow-up with your primary care provider if your pain persists. Return if you urinate brittany bright red blood or if you have difficulty breathing. Discharge Date/Time: 01/21/19 20:00
[2019-01-21 19:10] VITALS: BP 148/81
[2019-01-21 19:25] LABS: BILIRUBIN,URINE NEGATIVE (NEGATIVE); GLUCOSE, URINE (UA) NEGATIVE (NEGATIVE); KETONES,URINE (UA) NEGATIVE (NEGATIVE); LEUKOCYTE ESTERASE, URINE NEGATIVE (NEGATIVE); NITRITE,URINE NEGATIVE (NEGATIVE); OCCULT BLOOD,URINE NEGATIVE (NEGATIVE); PH,URINE 6.5 PH (5.0-7.5); PROTEIN,URINE NEGATIVE (NEGATIVE); UROBILINOGEN,URINE 0.2 (NORMAL) E.U./dL (NORMAL)
--- NOTE | 2019-01-21 19:49 | XRAY Report ---
Reason: R hip pain Procedure Date: 01/21/2019 Accession Number: [id number] / [id number] Procedure: XR - Hip w/Pelvis 2-3V RT CPT Code: Final Report FULL RESULT: EXAM: RIGHT HIP RADIOGRAPHY EXAM DATE: 01/21/2019 07:24 PM. CLINICAL HISTORY: R hip pain. COMPARISON: HIP W/PELVIS 2-3V RT 03/26/2018 10:03 PM. TECHNIQUE: 2 views. FINDINGS: Bones: Normal. No fractures or bone lesion. Joints: Normal. No dislocation. The hip joint space is preserved. Soft Tissues: Normal. No soft tissue swelling. IMPRESSION: No fracture or subluxation of right hip. RADIA
[2019-01-21 20:15] LABS: CLARITY,URINE CLEAR (CLEAR)
== END 2019-01-21 20:00 | disposition home or self-care (01) ==
LOC: ED 16:21
DX: S20.211A Contusion of right front wall of thorax, initial encounter (principal); S70.01XA Contusion of right hip, initial encounter; S16.1XXA Strain of muscle, fascia and tendon at neck level, initial encounter; W10.9XXA Fall (on) (from) unspecified stairs and steps, initial encounter; Y92.028 Other place in mobile home as the place of occurrence of the external cause; I10 Essential (primary) hypertension; E11.40 Type 2 diabetes mellitus with diabetic neuropathy, unspecified; F17.200 Nicotine dependence, unspecified, uncomplicated; Z79.4 Long term (current) use of insulin
CPT/HCPCS: 81001; 81003; 87086; 96372; 99283; 99284

== ENCOUNTER 2019-12-05 08:28 | Outpatient (CLI) | payer OTHER ==
[2019-12-05 15:10] LABS: BASOPHILS # (AUTO) 0.1 10^3/uL (0.0-0.1); BASOPHILS % (AUTO) 0.7 %; EOSINOPHILS # (AUTO) 0.2 10^3/uL (0.0-0.7); HGB - HEMOGLOBIN 14.6 g/dL (12.0-16.0); LYMPHOCYTES # (AUTO) 3.3 10^3/uL (1.5-3.5); LYMPHOCYTES % (AUTO) 30.7 %; MEAN CORPUSCULAR HEMOGLOBIN 31.6 pg (27.0-31.0); MEAN CORPUSCULAR HGB CONC 32.1 g/dL (32.0-36.0); MEAN CORPUSCULAR VOLUME 98.5 fL (81.0-99.0); MONOCYTES # (AUTO) 0.6 10^3/uL (0.0-1.0); MONOCYTES % (AUTO) 5.4 %; NEUTROPHILS # (AUTO) 6.6 10^3/uL (1.5-6.6); NEUTROPHILS % (AUTO) 60.7 %; PLT - PLATELET COUNT 294 10^3/uL (130-450); RED BLOOD COUNT 4.62 10^6/uL (4.20-5.40); RED CELL DISTRIBUTION WIDTH 14.1 % (12.0-15.0); WHITE BLOOD COUNT 10.8 x10^3/uL (4.8-10.8)
[2019-12-05 15:26] LABS: HEMOGLOBIN A1c% 8.8 % (4.27-6.07)
[2019-12-05 15:44] LABS: ALBUMIN 3.5 g/dL (3.2-5.5); ALBUMIN/GLOBULIN RATIO 0.9 (1.0-2.2); ALKALINE PHOSPHATASE 101 IU/L (42-121); ALT ALANINE AMINOTRANSFERASE 21 IU/L (10-60); AST ASPARTATE AMINOTRANSFERASE 24 IU/L (10-42); BILIRUBIN,TOTAL 0.3 mg/dL (0.2-1.0); BUN - BLOOD UREA NITROGEN 19 mg/dL (6-20); CALCIUM 9.4 mg/dL (8.5-10.3); CARBON DIOXIDE - CO2 27 mmol/L (21-32); CHLORIDE 101 mmol/L (101-111); CHOL/HDL RATIO 2.3 (<4.4); CHOLESTEROL 149 mg/dL; CREATININE 0.8 mg/dL (0.4-1.0); GLUCOSE 209 mg/dL (70-100); HDL CHOLESTEROL 65 mg/dL; LDL CHOLESTEROL,CALCULATED 51 mg/dL; LDL/HDL RATIO 0.8 (<4.4); SODIUM 135 mmol/L (135-145); TOTAL PROTEIN 7.2 g/dL (6.7-8.2); VLDL CHOLESTEROL 33 mg/dL
== END 2019-12-05 08:29 | disposition home or self-care (01) ==
LOC: LAB.S 08:28
PROVIDERS: ATTEND Registered Nurse
DX: E78.5 Hyperlipidemia, unspecified (principal); I10 Essential (primary) hypertension; E10.9 Type 1 diabetes mellitus without complications; F41.8 Other specified anxiety disorders
CPT/HCPCS: 36415; 80053; 80061; 83036; 83721; 84443; 85025

== ENCOUNTER 2020-05-28 16:27 | Emergency (ER) | payer OTHER ==
[2020-05-28] MEDS ORDERED: KETOROLAC 60 MG/2 ML VIAL IM STA (16:46)
--- NOTE | 2020-05-28 16:50 | ED Physician Documentation ---
PD HPI LOWER EXT INJURY - Stated complaint Stated Complaint: HIP/BOTTOM PX - Chief complaint Chief Complaint: Trauma Ext - History obtained from History obtained from: Patient - Additional information Additional information: 50-year-old woman with history of fibromyalgia, coronary disease with multiple stents, diabetes was walking yesterday and slipped on some wet grass. She had progressive pain in the buttock on the right and hip ever since. It is worse with walking. Because of the pain she started using her walker from a prior left hip surgery which is made her shoulders hurt. Review of Systems Constitutional: reports: Reviewed and negative Eyes: reports: Reviewed and negative Ears: reports: Reviewed and negative Nose: reports: Reviewed and negative Throat: reports: Reviewed and negative Cardiac: reports: Reviewed and negative Respiratory: reports: Reviewed and negative PD PAST MEDICAL HISTORY - Past Medical History Cardiovascular: Hypertension, High cholesterol, Arrhythmia, Other Respiratory: Sleep apnea, CPAP use, Other Neuro: Headaches, Migraines, Peripheral neuropathy Endocrine/Autoimmune: Type 2 diabetes, Other GI: GERD, GI bleed, Ulcers, Colon polyps, Hemorrhoids 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 : Chronic bladder infection, Nocturia, Frequency HEENT: Chronic vision loss, Chronic sinusitis Psych: Depression, Anxiety, Post traumatic stress disorder Musculoskeletal: Fibromyalgia, Fatigue Derm: None - Past Surgical History Past Surgical History: Yes General: Colonoscopy, EGD Ortho: Other Cardiovascular: Coronary stent, Cardiac catheterization, Angioplasty HEENT: Myringotomy (tubes) - Present Medications Home Medications: Ambulatory Orders Medication Instructions Recorded Confirmed Insulin Lispro [Humalog] 12 - 45 unit SQ QID 07/19/12 11/29/17 Butalb/Acetaminophen/Caffeine 1 each PO Q6H PRN #10 capsule 05/23/14 11/29/17 [Fioricet 50-300-40 mg Capsule] Albuterol [Ventolin Hfa] 2 puffs INH Q4H PRN 09/03/14 11/29/17 Cholecalciferol (Vitamin D3) 5,000 units PO DAILY 07/01/15 11/29/17 [Vitamin D3] Gabapentin [Neurontin] 1,200 mg PO TID 07/01/15 11/29/17 Cyclobenzaprine HCl 10 mg PO TID PRN 06/05/16 11/29/17 Nortriptyline HCl 50 mg PO DAILY 10/13/17 11/29/17 raNITIdine HCl [Zantac] 300 mg PO BID 10/13/17 11/29/17 Aspirin 81 mg PO DAILY 11/29/17 11/29/17 Clopidogrel Bisulfate [Clopidogrel] 75 mg PO DAILY 11/29/17 11/29/17 Nicotine 14 mg Patch [Nicoderm] 1 each TOP Q24H 11/29/17 11/29/17 Atorvastatin Calcium 80 mg PO DAILY #60 tablet 12/01/17 Insulin Glargine [Lantus Solostar] 45 unit SUBQ DAILY #0 pen 12/01/17 Isosorbide Mononitrate [Isosorbide 120 mg PO DAILY #30 tab.er.24h 12/01/17 Mononitrate ER] Metoprolol Succinate [Toprol Xl] 50 mg PO BIDWM #60 tablet 12/01/17 lisinopriL [Lisinopril] 2.5 mg PO DAILY #30 tablet 12/01/17 Hydrocodone/Acetaminophen [[place] 1 each PO Q6H PRN #15 tablet 03/26/18 5-325 Tablet] Naproxen 375 mg PO BID #20 tablet 03/26/18 hydrOXYzine pamoate [Vistaril] 50 mg PO BID PRN #10 capsule 10/28/18 Hydrocodone/Acetaminophen 1 - 2 each PO Q6H PRN #14 tablet 01/21/19 [Hydrocodon-Acetaminophen 5-325] HYDROcod/ACETAM 5/325 [[place] 5/325] 1 - 2 tab PO Q6H PRN #10 tablet 05/28/20 - Allergies Allergies/Adverse Reactions: Allergies Allergy/AdvReac Type Severity Reaction Status Date / Time Fish Containing Products Allergy Severe Headache Verified 05/28/20 16:53 shellfish derived Allergy Unknown Verified 05/28/20 16:53 meperidine HCl * AdvReac Severe Respiratory Verified 05/28/20 16:53 [From Demerol] cephalexin monohydrate * AdvReac Intermediate Hives Verified 05/28/20 16:53 [From Keflex] Sulfa (Sulfonamide AdvReac Intermediate Hives Verified 05/28/20 16:53 Antibiotics) pecan Allergy Severe Unknown Uncoded 05/28/20 16:53 Seafood Allergy Severe Anaphylaxis Uncoded 05/28/20 16:53 Walnuts Allergy Severe Headache Uncoded 05/28/20 16:53 tape AdvReac Rash Uncoded 05/28/20 16:53 - Social History Does the pt smoke?: Yes Smoking Status: Current every day smoker Does the pt drink ETOH?: Yes Does the pt have substance abuse?: No - Immunizations Immunizations are current?: Yes Immunizations: TDAP >10years/unknown - POLST Patient has POLST: No POLST Status: Full Code PD ED PE NORMAL - Vitals Vital signs reviewed: Yes - General General: Alert and oriented X 3, No acute distress - HEENT HEENT: PERRL, EOMI - Neck Neck: Supple, no meningeal sign, No bony TTP - Extremities Extremities: Other (Tender to the lateral and posterior right hip, no inguinal tenderness on the right. She has some pain with internal and external rotation but not exquisite. The knee is nontender on the right. No pedal edema or calf pain or tenderness.) - Neuro Neuro: Alert and oriented X 3, Normal speech Results - Vitals Vitals: Vital Signs - 24 hr 05/28/20 16:30 Temperature 36 C L Heart Rate 89 Respiratory 18 Rate Blood Pressure 127/70 O2 Saturation 94 Oxygen O2 Source Room air Departure - Departure Disposition: 01 Home, Self Care Clinical Impression: Strain of right hip Qualifiers: Encounter type: initial encounter Qualified Code(s): S76.011A - Strain of muscle, fascia and tendon of right hip, initial encounter Condition: Good Record reviewed to determine appropriate education?: Yes Instructions: ED Sprain Hip Follow-Up: [facility] [Provider Group] Prescriptions: HYDROcod/ACETAM 5/325 [[place] 5/325] 1 - 2 tab PO Q6H PRN #10 tablet PRN Reason: Pain Comments: Do not drink or drive while taking narcotic pain medication. Note that many narcotic pain relievers also contain Tylenol/acetaminophen. Please ensure that your total dose of acetaminophen from all sources does not exceed 3 g (3000 mg) per day. You may get constipated while on this medication. Take a stool softener such as Colace twice a day while you are on it. Also add an [id number]-[id number] laxative such as senna or MiraLAX on any day that you do not have a bowel movement. If you received a narcotic pain medication or sedative while in the emergency department, do not drive for the next 24 hours.
--- NOTE | 2020-05-28 17:17 | XRAY Report ---
PROCEDURE: Hip w/Pelvis 2-3V RT INDICATIONS: fall hip pain TECHNIQUE: AP pelvis with lateral view(s) of the right hip(s). COMPARISON: 01/21/2019 FINDINGS: Bones: No acute fractures or dislocations. Femoral head contours remain round. Pelvic ring appears i ntact. No suspicious bony lesions. Mild degenerative changes of the bilateral hips. Soft tissues: The visualized bowel gas pattern is normal. No suspicious soft tissue calcifications. IMPRESSION: Pelvis and right hip without acute fracture or dislocation. Mild bilateral hip degenerative change. If there is high clinical suspicion for radiographically occult hip fracture, consider further evalua tion with cross-sectional imaging such as CT or MRI. Reviewed by: Gomez Jackson MD on 05/28/2020 5:16 PM PDT Approved by: Gomez Jackson MD on 05/28/2020 5:16 PM PDT Station ID: [id number]
[2020-05-28 17:29] VITALS: BP 126/63
== END 2020-05-28 17:35 | disposition home or self-care (01) ==
LOC: ED 16:27
DX: S76.011A Strain of muscle, fascia and tendon of right hip, initial encounter (principal); W01.0XXA Fall on same level from slipping, tripping and stumbling without subsequent striking against object, initial encounter; Y93.01 Activity, walking, marching and hiking; E11.42 Type 2 diabetes mellitus with diabetic polyneuropathy; Z79.4 Long term (current) use of insulin; Z95.5 Presence of coronary angioplasty implant and graft; I10 Essential (primary) hypertension; F17.200 Nicotine dependence, unspecified, uncomplicated
CPT/HCPCS: 96372; 99283; 99284

== ENCOUNTER 2020-05-30 07:50 | Emergency (ER) | payer OTHER ==
[2020-05-30] MEDS ORDERED: SODIUM CHLORIDE 0.9% 1,000 ML IV STA (08:19)
[2020-05-30] MEDS ORDERED: KETOROLAC 30 MG/ML VIAL IVP STA (08:19)
--- NOTE | 2020-05-30 08:21 | ED Physician Documentation ---
PD HPI ABD PAIN - Stated complaint Stated Complaint: DIARRHEA/STOMACH PX - Chief complaint Chief Complaint: Abd Pain - History obtained from History obtained from: Patient - Additional information Additional information: 50-year-old woman with history of IBS was seen 2 days ago after a fall, hurting her hip. She got a shot of Toradol which was quite helpful, that night she developed severe abdominal cramps and bloody diarrhea. States she had 100 episodes of bloody diarrhea that night. No nausea, no fevers. No sick contacts, no camping, no travel, no recent antibiotics. Review of Systems Ten Systems: 10 systems reviewed and negative Constitutional: reports: Myalgias, Fatigue. denies: Fever, Chills GI: reports: Abdominal Pain, Diarrhea, Bloody / black stool. 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 : Chronic bladder infection, Nocturia, Frequency HEENT: Chronic vision loss, Chronic sinusitis Psych: Depression, Anxiety, Post traumatic stress disorder Musculoskeletal: Fibromyalgia, Fatigue Derm: None - Past Surgical History Past Surgical History: Yes General: Colonoscopy, EGD Ortho: Other Cardiovascular: Coronary stent, Cardiac catheterization, Angioplasty HEENT: Myringotomy (tubes) - Present Medications Home Medications: Ambulatory Orders Medication Instructions Recorded Confirmed Insulin Lispro [Humalog] 12 - 45 unit SQ QID 07/19/12 11/29/17 Butalb/Acetaminophen/Caffeine 1 each PO Q6H PRN #10 capsule 05/23/14 11/29/17 [Fioricet 50-300-40 mg Capsule] Albuterol [Ventolin Hfa] 2 puffs INH Q4H PRN 09/03/14 11/29/17 Cholecalciferol (Vitamin D3) 5,000 units PO DAILY 07/01/15 11/29/17 [Vitamin D3] Gabapentin [Neurontin] 1,200 mg PO TID 07/01/15 11/29/17 Cyclobenzaprine HCl 10 mg PO TID PRN 06/05/16 11/29/17 Nortriptyline HCl 50 mg PO DAILY 10/13/17 11/29/17 raNITIdine HCl [Zantac] 300 mg PO BID 10/13/17 11/29/17 Aspirin 81 mg PO DAILY 11/29/17 11/29/17 Clopidogrel Bisulfate [Clopidogrel] 75 mg PO DAILY 11/29/17 11/29/17 Nicotine 14 mg Patch [Nicoderm] 1 each TOP Q24H 11/29/17 11/29/17 Atorvastatin Calcium 80 mg PO DAILY #60 tablet 12/01/17 Insulin Glargine [Lantus Solostar] 45 unit SUBQ DAILY #0 pen 12/01/17 Isosorbide Mononitrate [Isosorbide 120 mg PO DAILY #30 tab.er.24h 12/01/17 Mononitrate ER] Metoprolol Succinate [Toprol Xl] 50 mg PO BIDWM #60 tablet 12/01/17 lisinopriL [Lisinopril] 2.5 mg PO DAILY #30 tablet 12/01/17 Hydrocodone/Acetaminophen [[place] 1 each PO Q6H PRN #15 tablet 03/26/18 5-325 Tablet] Naproxen 375 mg PO BID #20 tablet 03/26/18 hydrOXYzine pamoate [Vistaril] 50 mg PO BID PRN #10 capsule 10/28/18 Hydrocodone/Acetaminophen 1 - 2 each PO Q6H PRN #14 tablet 01/21/19 [Hydrocodon-Acetaminophen 5-325] HYDROcod/ACETAM 5/325 [[place] 5/325] 1 - 2 tab PO Q6H PRN #10 tablet 05/28/20 Dicyclomine [Bentyl] 1 - 2 tab PO QID PRN #20 cap 05/30/20 - Allergies Allergies/Adverse Reactions: Allergies Allergy/AdvReac Type Severity Reaction Status Date / Time Fish Containing Products Allergy Severe Headache Verified 05/30/20 08:02 shellfish derived Allergy Unknown Verified 05/30/20 08:02 meperidine HCl * AdvReac Severe Respiratory Verified 05/30/20 08:02 [From Demerol] cephalexin monohydrate * AdvReac Intermediate Hives Verified 05/30/20 08:02 [From Keflex] Sulfa (Sulfonamide AdvReac Intermediate Hives Verified 05/30/20 08:02 Antibiotics) pecan Allergy Severe Unknown Uncoded 05/30/20 08:02 Seafood Allergy Severe Anaphylaxis Uncoded 05/30/20 08:02 Walnuts Allergy Severe Headache Uncoded 05/30/20 08:02 tape AdvReac Rash Uncoded 05/30/20 08:02 - Social History Does the pt smoke?: Yes Smoking Status: Current every day smoker Does the pt drink ETOH?: Yes Does the pt have substance abuse?: No - Immunizations Immunizations are current?: Yes Immunizations: TDAP >10years/unknown - POLST Patient has POLST: No POLST Status: Full Code PD ED PE NORMAL - Vitals Vital signs reviewed: Yes (Tachycardic) - General General: Alert and oriented X 3, No acute distress - HEENT HEENT: PERRL, EOMI - Neck Neck: Supple, no meningeal sign, No bony TTP - Cardiac Cardiac: RRR, No murmur - Respiratory Respiratory: No respiratory distress, Clear bilaterally - Abdomen Abdomen: Other (Hyperactive bowel tones, no tenderness.) - Back Back: No CVA TTP, No spinal TTP - Derm Derm: Normal color, Warm and dry - Extremities Extremities: No edema, No calf tenderness / cord - Neuro Neuro: Alert and oriented X 3, Normal speech Results - Vitals Vitals: Vital Signs - 24 hr 05/30/20 05/30/20 07:59 09:58 Temperature 36.0 C L Heart Rate 134 H 90 Respiratory 20 18 Rate Blood Pressure 133/90 H 131/61 H O2 Saturation 97 97 Oxygen O2 Source Room air - Labs Labs: Laboratory Tests 05/30/20 05/30/20 05/30/20 08:24 08:24 08:24 WBC 16.1 H RBC 5.02 Hgb 15.6 Hct 46.6 MCV 92.8 MCH 31.1 H MCHC 33.5 RDW 14.1 Plt Count 266 MPV 10.3 Neut # (Auto) 12.2 H Lymph # (Auto) 2.9 Bartholomew # (Auto) 0.9 Eos # (Auto) 0.1 Baso # (Auto) 0.1 Absolute Nucleated RBC 0.00 Nucleated RBC % 0.0 Sodium 132 L Potassium 4.4 Chloride 96 L Carbon Dioxide 26 Anion Gap 10.0 BUN 13 Creatinine 0.9 Estimated GFR (MDRD) 66 L Glucose 220 H Lactic Acid 1.7 Calcium 9.0 Total Bilirubin 0.5 AST 16 ALT 17 Alkaline Phosphatase 83 Total Protein 7.5 Albumin 3.4 Globulin 4.1 Albumin/Globulin Ratio 0.8 L Lipase 16 L Urine Opiates Screen Ur Oxycodone Screen Urine Methadone Screen Ur Propoxyphene Screen Ur Barbiturates Screen Ur Tricyclics Screen Ur Phencyclidine Scrn Ur Amphetamine Screen U Methamphetamines Scrn U Benzodiazepines Scrn Urine Cocaine Screen U Cannabinoids Screen Ethyl Alcohol < 5.0 05/30/20 08:50 WBC RBC Hgb Hct MCV MCH MCHC RDW Plt Count MPV Neut # (Auto) Lymph # (Auto) Bartholomew # (Auto) Eos # (Auto) Baso # (Auto) Absolute Nucleated RBC Nucleated RBC % Sodium Potassium Chloride Carbon Dioxide Anion Gap BUN Creatinine Estimated GFR (MDRD) Glucose Lactic Acid Calcium Total Bilirubin AST ALT Alkaline Phosphatase Total Protein Albumin Globulin Albumin/Globulin Ratio Lipase Urine Opiates Screen NEGATIVE Ur Oxycodone Screen NEGATIVE Urine Methadone Screen NEGATIVE Ur Propoxyphene Screen NEGATIVE Ur Barbiturates Screen POSITIVE H Ur Tricyclics Screen POSITIVE H Ur Phencyclidine Scrn NEGATIVE Ur Amphetamine Screen NEGATIVE U Methamphetamines Scrn NEGATIVE U Benzodiazepines Scrn NEGATIVE Urine Cocaine Screen NEGATIVE U Cannabinoids Screen NEGATIVE Ethyl Alcohol - Rads (name of study) CT A/P Radiology: EMP read contemporaneously (Long segment colonic wall thickening compatible with infectious or inflammatory colitis. Mild adjacent mesenteric fat stranding.) PD MEDICAL DECISION MAKING - ED course ED course: 50-year-old woman with bloody diarrhea of a couple days duration. CT showing colitis, could be infectious or inflammatory. Her vital signs were notable to be significantly tachycardic on arrival but much better on recheck, no lactic acidosis. She was unable to produce a stool sample here and was given collection materials and an order for stool culture, C. difficile, and ova and parasites to return to the hospital lab. Departure - Departure Disposition: 01 Home, Self Care Clinical Impression: Diarrhea Qualifiers: Diarrhea type: presumed infectious Qualified Code(s): R19.7 - Diarrhea, unspecified Instructions: ED Diarrhea Bacterial Prescriptions: Dicyclomine [Bentyl] 1 - 2 tab PO QID PRN #20 cap PRN Reason: Abdominal Pain Comments: As discussed, your CT shows colitis. Return a stool sample to the lab with the order for stool culture, ova and parasites, and C. difficile when able. If a bacterial pathogen is isolated we will call you to call in antibiotics. Return for new or worsening symptoms. If symptoms are persistent, talk with your doctor about referral for repeat colonoscopy. Discharge Date/Time: 05/30/20 10:54
[2020-05-30 08:30] LABS: BASOPHILS # (AUTO) 0.1 10^3/uL (0.0-0.1); BASOPHILS % (AUTO) 0.4 %; EOSINOPHILS # (AUTO) 0.1 10^3/uL (0.0-0.7); EOSINOPHILS % (AUTO) 0.4 %; HCT - HEMATOCRIT 46.6 % (37.0-47.0); HGB - HEMOGLOBIN 15.6 g/dL (12.0-16.0); LYMPHOCYTES # (AUTO) 2.9 10^3/uL (1.5-3.5); LYMPHOCYTES % (AUTO) 17.7 %; MEAN CORPUSCULAR HEMOGLOBIN 31.1 pg (27.0-31.0); MEAN CORPUSCULAR HGB CONC 33.5 g/dL (32.0-36.0); MEAN CORPUSCULAR VOLUME 92.8 fL (81.0-99.0); MEAN PLATELET VOLUME 10.3 fL (7.9-10.8); MONOCYTES # (AUTO) 0.9 10^3/uL (0.0-1.0); MONOCYTES % (AUTO) 5.4 %; NEUTROPHILS # (AUTO) 12.2 10^3/uL (1.5-6.6); NEUTROPHILS % (AUTO) 75.7 %; PLT - PLATELET COUNT 266 10^3/uL (130-450); RED BLOOD COUNT 5.02 10^6/uL (4.20-5.40); RED CELL DISTRIBUTION WIDTH 14.1 % (12.0-15.0); WHITE BLOOD COUNT 16.1 x10^3/uL (4.8-10.8)
[2020-05-30 08:42] LABS: ALBUMIN 3.4 g/dL (3.2-5.5); ALBUMIN/GLOBULIN RATIO 0.8 (1.0-2.2); ALKALINE PHOSPHATASE 83 IU/L (42-121); ALT ALANINE AMINOTRANSFERASE 17 IU/L (10-60); AST ASPARTATE AMINOTRANSFERASE 16 IU/L (10-42); BILIRUBIN,TOTAL 0.5 mg/dL (0.2-1.0); BUN - BLOOD UREA NITROGEN 13 mg/dL (6-20); CARBON DIOXIDE - CO2 26 mmol/L (21-32); CHLORIDE 96 mmol/L (101-111); CREATININE 0.9 mg/dL (0.4-1.0); ETOH - ETHANOL < 5.0 mg/dL; GFR - MDRD 66 (>89); GLUCOSE 220 mg/dL (70-100); LIPASE 16 U/L (22-51); POTASSIUM 4.4 mmol/L (3.5-5.0); SODIUM 132 mmol/L (135-145); TOTAL PROTEIN 7.5 g/dL (6.7-8.2)
[2020-05-30 09:01] LABS: MUDS CUTOFF CONCENTRATIONS CUTOFF CONC BELOW:
[2020-05-30 09:24] LABS: AMPHETAMINE SCREEN,URINE NEGATIVE (NEGATIVE); BARBITURATE SCREEN,UR POSITIVE (NEGATIVE); BENZODIAZEPINES SCREEN, URINE NEGATIVE (NEGATIVE); COCAINE SCREEN URINE NEGATIVE (NEGATIVE); METHADONE SCREEN, URINE NEGATIVE (NEGATIVE); METHAMPHETAMINES SCREEN, URINE NEGATIVE (NEGATIVE); OPIATE SCREEN, URINE NEGATIVE (NEGATIVE); OXYCODONE SCREEN, URINE NEGATIVE (NEGATIVE); PROPOXYPHENE SCREEN, URINE NEGATIVE (NEGATIVE); THC CANNABINOID SCREEN, URINE NEGATIVE (NEGATIVE); TRICYCLIC ANTIDEPRESSANT,URINE POSITIVE (NEGATIVE)
[2020-05-30] MEDS ORDERED: IOVERSOL 320 100 ML VIAL IVP ONE ×2 (09:25→09:50)
--- NOTE | 2020-05-30 09:28 | CT Report ---
PROCEDURE: Abdomen/Pelvis W INDICATIONS: IV only, abd pain CONTRAST: IV CONTRAST: Optiray 320 ml: 100 PO CONTRAST: *NO PO CONTRAST TECHNIQUE: After the administration of IV contrast, 5 mm thick sections acquired from the diaphragms to the symp hysis. 5 mm thick coronal and sagittal reformats were acquired. For radiation dose reduction, the f ollowing was used: automated exposure control, adjustment of mA and/or kV according to patient size. COMPARISON: None. FINDINGS: Image quality: Excellent. ABDOMEN: Lung bases: Lung bases are clear. Heart size is normal. Solid organs: Liver and spleen are normal in size and enhancement. Hepatic steatosis noted. Gallblad anthony grossly unremarkable. Biliary system is non dilated. Pancreas enhances normally. No adrenal no dules. Kidneys demonstrate normal size and enhancement, without hydronephrosis. Peritoneum and bowel: Long segment colonic wall thickening involving the transverse and descending co nataliya, with mild adjacent inflammatory stranding. No abscess or bowel obstruction is identified. No free fluid or air. Nodes and vessels: No retroperitoneal or mesenteric adenopathy by size criteria. Aorta and inferior vena cava are normal in size. Miscellaneous: No ventral hernias. PELVIS: Genitourinary: Bladder wall thickness is normal. Miscellaneous: No inguinal hernias or adenopathy. Bones: No suspicious bony lesions. No vertebral body compression fractures. IMPRESSION: Long segment colonic wall thickening compatible with infectious or inflammatory colitis. Mild adjacen t mesenteric fat stranding. Normal appendix No bowel obstruction Reviewed by: Dustin Tsang MD on 05/30/2020 9:27 AM PDT Approved by: Dustin Tsang MD on 05/30/2020 9:27 AM PDT Station ID: [id number]
[2020-05-30 09:59] VITALS: BP 131/61
== END 2020-05-30 10:54 | disposition home or self-care (01) ==
LOC: ED 07:50
DX: K52.9 Noninfective gastroenteritis and colitis, unspecified (principal); I10 Essential (primary) hypertension; E11.9 Type 2 diabetes mellitus without complications; Z79.4 Long term (current) use of insulin; F17.200 Nicotine dependence, unspecified, uncomplicated
CPT/HCPCS: 36415; 74177; 80053; 80306; 80320; 83605; 83690; 85025; 96361; 96374; 99284; Q9967; 81599; 87177; 87209; 87493

== ENCOUNTER 2020-05-30 08:00 | Outpatient (CLI) | payer OTHER | END 2020-05-30 23:59 | disposition home or self-care (01) | LOC: LAB 08:00 | PROVIDERS: ATTEND Emergency Medicine | DX: R19.7 Diarrhea, unspecified (principal) | CPT/HCPCS: 81599; 87177; 87209; 87493 ==

== ENCOUNTER 2020-07-07 12:49 | Emergency (ER) | payer OTHER ==
[2020-07-07] MEDS ORDERED: KETOROLAC 60 MG/2 ML VIAL IM STA (13:14)
[2020-07-07] MEDS ORDERED: ONDANSETRON ODT 4 MG TABLET TL STA (13:14)
--- NOTE | 2020-07-07 13:16 | ED Physician Documentation ---
History of Present Illness - Stated complaint Stated Complaint: BACK/RIB PX - Chief complaint Chief Complaint: General - History obtained from History obtained from: Patient - Additonal information Additional information: Patient has a history of type 2 diabetes, GERD, ulcers, colonic polyps, fibromyalgia, coronary artery disease, hypertension, hyperlipidemia. Yesterday he was doing some light yard work and subsequently developed right-sided back pain radiating to the front. It was gradual in onset and constant. It is much worse with bending, twisting, walking. Had not noticed any change with eating. Denies weakness, numbness, tingling of the saddle area or extremities other than chronic diabetic neuropathy. No incontinence. No fevers. 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 : Chronic bladder infection, Nocturia, Frequency HEENT: Chronic vision loss, Chronic sinusitis Psych: Depression, Anxiety, Post traumatic stress disorder Musculoskeletal: Fibromyalgia, Fatigue Derm: None - Past Surgical History Past Surgical History: Yes General: Colonoscopy, EGD Ortho: Other Cardiovascular: Coronary stent, Cardiac catheterization, Angioplasty HEENT: Myringotomy (tubes) - Present Medications Home Medications: Ambulatory Orders Medication Instructions Recorded Confirmed Insulin Lispro [Humalog] 12 - 45 unit SQ QID 07/19/12 11/29/17 Butalb/Acetaminophen/Caffeine 1 each PO Q6H PRN #10 capsule 05/23/14 11/29/17 [Fioricet 50-300-40 mg Capsule] Albuterol [Ventolin Hfa] 2 puffs INH Q4H PRN 09/03/14 11/29/17 Cholecalciferol (Vitamin D3) 5,000 units PO DAILY 07/01/15 11/29/17 [Vitamin D3] Gabapentin [Neurontin] 1,200 mg PO TID 07/01/15 11/29/17 Cyclobenzaprine HCl 10 mg PO TID PRN 06/05/16 11/29/17 Nortriptyline HCl 50 mg PO DAILY 10/13/17 11/29/17 raNITIdine HCl [Zantac] 300 mg PO BID 10/13/17 11/29/17 Aspirin 81 mg PO DAILY 11/29/17 11/29/17 Clopidogrel Bisulfate [Clopidogrel] 75 mg PO DAILY 11/29/17 11/29/17 Nicotine 14 mg Patch [Nicoderm] 1 each TOP Q24H 11/29/17 11/29/17 Atorvastatin Calcium 80 mg PO DAILY #60 tablet 12/01/17 Insulin Glargine [Lantus Solostar] 45 unit SUBQ DAILY #0 pen 12/01/17 Isosorbide Mononitrate [Isosorbide 120 mg PO DAILY #30 tab.er.24h 12/01/17 Mononitrate ER] Metoprolol Succinate [Toprol Xl] 50 mg PO BIDWM #60 tablet 12/01/17 lisinopriL [Lisinopril] 2.5 mg PO DAILY #30 tablet 12/01/17 Hydrocodone/Acetaminophen [[place] 1 each PO Q6H PRN #15 tablet 03/26/18 5-325 Tablet] Naproxen 375 mg PO BID #20 tablet 03/26/18 hydrOXYzine pamoate [Vistaril] 50 mg PO BID PRN #10 capsule 10/28/18 Hydrocodone/Acetaminophen 1 - 2 each PO Q6H PRN #14 tablet 01/21/19 [Hydrocodon-Acetaminophen 5-325] HYDROcod/ACETAM 5/325 [[place] 5/325] 1 - 2 tab PO Q6H PRN #10 tablet 05/28/20 Dicyclomine [Bentyl] 1 - 2 tab PO QID PRN #20 cap 05/30/20 Carisoprodol [Soma] 350 mg PO TID PRN #20 tablet 07/07/20 HYDROcod/ACETAM 5/325 [[place] 5/325] 1 - 2 tab PO Q6H PRN #15 tablet 07/07/20 - Allergies Allergies/Adverse Reactions: Allergies Allergy/AdvReac Type Severity Reaction Status Date / Time Fish Containing Products Allergy Severe Headache Verified 07/07/20 13:07 shellfish derived Allergy Unknown Verified 07/07/20 13:07 meperidine HCl * AdvReac Severe Respiratory Verified 07/07/20 13:07 [From Demerol] cephalexin monohydrate * AdvReac Intermediate Hives Verified 07/07/20 13:07 [From Keflex] Sulfa (Sulfonamide AdvReac Intermediate Hives Verified 07/07/20 13:07 Antibiotics) pecan Allergy Severe Unknown Uncoded 07/07/20 13:07 Seafood Allergy Severe Anaphylaxis Uncoded 07/07/20 13:07 Walnuts Allergy Severe Headache Uncoded 07/07/20 13:07 tape AdvReac Rash Uncoded 07/07/20 13:07 - Social History Does the pt smoke?: Yes Smoking Status: Current every day smoker Does the pt drink ETOH?: Yes Does the pt have substance abuse?: No - Immunizations Immunizations are current?: Yes Immunizations: TDAP >10years/unknown - POLST Patient has POLST: No POLST Status: Full Code PD ED PE NORMAL - Vitals Vital signs reviewed: Yes - General General: Alert and oriented X 3, No acute distress - Abdomen Abdomen: Soft, Non tender - Back Back: No spinal TTP, Other (Muscular tenderness of the right low back, no rash in the area.) - Neuro Neuro: Alert and oriented X 3, No motor deficit, No sensory deficit, Normal speech Results - Vitals Vitals: Vital Signs - 24 hr 07/07/20 07/07/20 13:00 13:12 Temperature 36.4 C L 36.5 C Heart Rate 82 82 Respiratory 17 17 Rate Blood Pressure 145/61 H 145/61 H O2 Saturation 97 97 Oxygen O2 Source Room air - Labs Labs: Laboratory Tests 07/07/20 07/07/20 07/07/20 13:40 13:40 13:49 WBC 8.3 RBC 4.67 Hgb 14.1 Hct 44.0 MCV 94.2 MCH 30.2 MCHC 32.0 RDW 14.3 Plt Count 286 MPV 10.1 Neut # (Auto) 5.5 Lymph # (Auto) 2.1 [place] # (Auto) 0.5 Eos # (Auto) 0.2 Baso # (Auto) 0.1 Absolute Nucleated RBC 0.00 Nucleated RBC % 0.0 Sodium 138 Potassium 4.5 Chloride 101 Carbon Dioxide 29 Anion Gap 8.0 BUN 13 Creatinine 0.8 Estimated GFR (MDRD) 76 L Glucose 223 H Calcium 9.2 Total Bilirubin 0.4 AST 17 ALT 17 Alkaline Phosphatase 87 Total Protein 7.3 Albumin 3.5 Globulin 3.8 Albumin/Globulin Ratio 0.9 L Lipase 21 L Urine Color YELLOW Urine Clarity CLEAR Urine pH 6.0 Ur Specific [place] 1.015 Urine Protein NEGATIVE Urine Glucose (UA) 500 H Urine Ketones NEGATIVE Urine Occult Blood NEGATIVE Urine Nitrite NEGATIVE Urine Bilirubin NEGATIVE Urine Urobilinogen 0.2 (NORMAL) Ur Leukocyte Esterase NEGATIVE Ur Microscopic Review NOT INDICATED Urine Culture Comments NOT INDICATED Urine Opiates Screen NEGATIVE Ur Oxycodone Screen NEGATIVE Urine Methadone Screen NEGATIVE Ur Propoxyphene Screen NEGATIVE Ur Barbiturates Screen NEGATIVE Ur Tricyclics Screen POSITIVE H Ur Phencyclidine Scrn NEGATIVE Ur Amphetamine Screen NEGATIVE U Methamphetamines Scrn NEGATIVE U Benzodiazepines Scrn NEGATIVE Urine Cocaine Screen NEGATIVE U Cannabinoids Screen NEGATIVE PD MEDICAL DECISION MAKING - ED course ED course: 50-year-old woman with right-sided back pain which by history and physical is likely muscular. Atypical presentation of kidney stone is considered but CT was done a month ago without nephroliths. Also no blood in the urine today. Atypical presentation of hepatic/biliary pain was considered but liver enzymes are normal today. Feeling better after Toradol. Departure - Departure Disposition: Home, Self Care Clinical Impression: Back pain Qualifiers: Back pain location: low back pain Chronicity: acute Back pain laterality: right Sciatica presence: without sciatica Qualified Code(s): M54.5 - Low back pain Condition: Stable Record reviewed to determine appropriate education?: Yes Instructions: ED Neck Back Pain General Prescriptions: HYDROcod/ACETAM 5/325 [[place] 5/325] 1 - 2 tab PO Q6H PRN #15 tablet PRN Reason: Pain Carisoprodol [Soma] 350 mg PO TID PRN #20 tablet PRN Reason: back pain Comments: Call your doctor to arrange a follow-up appointment, make the next available appointment. In the interim, return anytime if worse or if new symptoms develop. Do not drink or drive while taking narcotic pain medication. Note that many narcotic pain relievers also contain Tylenol/acetaminophen. Please ensure that your total dose of acetaminophen from all sources does not exceed 3 g (3000 mg) per day. You may get constipated while on this medication. Take a stool softener such as Colace twice a day while you are on it. Also add an [id number] laxative such as senna or MiraLAX on any day that you do not have a bowel movement. If you received a narcotic pain medication or sedative while in the emergency department, do not drive for the next 24 hours.
[2020-07-07 13:48] LABS: BASOPHILS # (AUTO) 0.1 10^3/uL (0.0-0.1); BASOPHILS % (AUTO) 0.6 %; EOSINOPHILS # (AUTO) 0.2 10^3/uL (0.0-0.7); HGB - HEMOGLOBIN 14.1 g/dL (12.0-16.0); LYMPHOCYTES # (AUTO) 2.1 10^3/uL (1.5-3.5); LYMPHOCYTES % (AUTO) 24.9 %; MEAN CORPUSCULAR HEMOGLOBIN 30.2 pg (27.0-31.0); MEAN CORPUSCULAR VOLUME 94.2 fL (81.0-99.0); MEAN PLATELET VOLUME 10.1 fL (7.9-10.8); MONOCYTES # (AUTO) 0.5 10^3/uL (0.0-1.0); MONOCYTES % (AUTO) 5.8 %; NEUTROPHILS # (AUTO) 5.5 10^3/uL (1.5-6.6); NEUTROPHILS % (AUTO) 66.5 %; PLT - PLATELET COUNT 286 10^3/uL (130-450); RED BLOOD COUNT 4.67 10^6/uL (4.20-5.40); RED CELL DISTRIBUTION WIDTH 14.3 % (12.0-15.0); WHITE BLOOD COUNT 8.3 x10^3/uL (4.8-10.8)
[2020-07-07 13:53] LABS: BILIRUBIN,URINE NEGATIVE (NEGATIVE); GLUCOSE, URINE (UA) 500 mg/dL (NEGATIVE); KETONES,URINE (UA) NEGATIVE (NEGATIVE); LEUKOCYTE ESTERASE, URINE NEGATIVE (NEGATIVE); MUDS CUTOFF CONCENTRATIONS CUTOFF CONC BELOW:; NITRITE,URINE NEGATIVE (NEGATIVE); OCCULT BLOOD,URINE NEGATIVE (NEGATIVE); PROTEIN,URINE NEGATIVE (NEGATIVE); UROBILINOGEN,URINE 0.2 (NORMAL) E.U./dL (NORMAL)
[2020-07-07 13:56] LABS: CLARITY,URINE CLEAR (CLEAR)
[2020-07-07 14:04] LABS: ALBUMIN 3.5 g/dL (3.2-5.5); ALBUMIN/GLOBULIN RATIO 0.9 (1.0-2.2); BILIRUBIN,TOTAL 0.4 mg/dL (0.2-1.0); CALCIUM 9.2 mg/dL (8.5-10.3); CREATININE 0.8 mg/dL (0.4-1.0); POTASSIUM 4.5 mmol/L (3.5-5.0); TOTAL PROTEIN 7.3 g/dL (6.7-8.2)
[2020-07-07 14:05] LABS: AMPHETAMINE SCREEN,URINE NEGATIVE (NEGATIVE); BARBITURATE SCREEN,UR NEGATIVE (NEGATIVE); BENZODIAZEPINES SCREEN, URINE NEGATIVE (NEGATIVE); COCAINE SCREEN URINE NEGATIVE (NEGATIVE); METHADONE SCREEN, URINE NEGATIVE (NEGATIVE); METHAMPHETAMINES SCREEN, URINE NEGATIVE (NEGATIVE); OPIATE SCREEN, URINE NEGATIVE (NEGATIVE); OXYCODONE SCREEN, URINE NEGATIVE (NEGATIVE); PROPOXYPHENE SCREEN, URINE NEGATIVE (NEGATIVE); THC CANNABINOID SCREEN, URINE NEGATIVE (NEGATIVE); TRICYCLIC ANTIDEPRESSANT,URINE POSITIVE (NEGATIVE)
[2020-07-07 14:36] VITALS: BP 122/63
== END 2020-07-07 14:41 | disposition home or self-care (01) ==
LOC: ED 12:49
DX: M54.5 Low back pain (principal); I10 Essential (primary) hypertension; E11.40 Type 2 diabetes mellitus with diabetic neuropathy, unspecified; Z79.4 Long term (current) use of insulin; Z95.5 Presence of coronary angioplasty implant and graft; F17.200 Nicotine dependence, unspecified, uncomplicated
CPT/HCPCS: 36415; 80053; 80306; 81003; 83690; 85025; 96372; 99283; Q0162; 81001; 87086

== ENCOUNTER 2020-11-13 06:24 | Outpatient (CLI) | payer OTHER | END 2020-11-13 06:25 | disposition EMS.NT | LOC: EMS 06:24 | DX: R40.4 Transient alteration of awareness (principal) ==

== ENCOUNTER 2021-03-12 19:54 | Emergency (ER) | payer OTHER ==
[2021-03-12] MEDS ORDERED: MORPHINE 2 MG/ML CARPUJECT IM STA (20:55)
--- NOTE | 2021-03-12 21:03 | ED Physician Documentation ---
History of Present Illness - Stated complaint Stated Complaint: BACK INJURY - Chief complaint Chief Complaint: Ext Problem - History obtained from History obtained from: Patient - Additonal information Additional information: 51yF with pmh fibromyalgia, diabetic neuropathy, p/w back pain after multiple falls. patient's dogs pushed her out of bed two and a half weeks ago and she had sudden onset back pain that was improving until she slid on ice and fell again 2 days ago, falling onto knees and jolting her back. patient initially had minimal pain but it progressively developed gradually and is now constant, aching, located in BL back and midline back, worse with stepping sideways and bending in certain positions. patient has baseline neuropathy in extremities that she states is nonworsening. denies motor deficit, numbness in groin, or issues with urine/stool. Review of Systems Musculoskeletal: reports: Back pain. 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 : Chronic bladder infection, Nocturia, Frequency HEENT: Chronic vision loss, Chronic sinusitis Psych: Depression, Anxiety, Post traumatic stress disorder Musculoskeletal: Fibromyalgia, Fatigue Derm: None - Past Surgical History Past Surgical History: Yes General: Colonoscopy, EGD Ortho: Other Cardiovascular: Coronary stent, Cardiac catheterization, Angioplasty HEENT: Myringotomy (tubes) - Present Medications Home Medications: Ambulatory Orders Medication Instructions Recorded Confirmed Insulin Lispro [Humalog] 12 - 45 unit SQ QID 07/19/12 11/29/17 Butalb/Acetaminophen/Caffeine 1 each PO Q6H PRN #10 capsule 05/23/14 11/29/17 [Fioricet 50-300-40 mg Capsule] Albuterol [Ventolin Hfa] 2 puffs INH Q4H PRN 09/03/14 11/29/17 Cholecalciferol (Vitamin D3) 5,000 units PO DAILY 07/01/15 11/29/17 [Vitamin D3] Gabapentin [Neurontin] 1,200 mg PO TID 07/01/15 11/29/17 Cyclobenzaprine HCl 10 mg PO TID PRN 06/05/16 11/29/17 Nortriptyline HCl 50 mg PO DAILY 10/13/17 11/29/17 raNITIdine HCl [Zantac] 300 mg PO BID 10/13/17 11/29/17 Aspirin 81 mg PO DAILY 11/29/17 11/29/17 Clopidogrel Bisulfate [Clopidogrel] 75 mg PO DAILY 11/29/17 11/29/17 Nicotine 14 mg Patch [Nicoderm] 1 each TOP Q24H 11/29/17 11/29/17 Atorvastatin Calcium 80 mg PO DAILY #60 tablet 12/01/17 Insulin Glargine [Lantus Solostar] 45 unit SUBQ DAILY #0 pen 12/01/17 Isosorbide Mononitrate [Isosorbide 120 mg PO DAILY #30 tab.er.24h 12/01/17 Mononitrate ER] Metoprolol Succinate [Toprol Xl] 50 mg PO BIDWM #60 tablet 12/01/17 lisinopriL [Lisinopril] 2.5 mg PO DAILY #30 tablet 12/01/17 Hydrocodone/Acetaminophen [[place] 1 each PO Q6H PRN #15 tablet 03/26/18 5-325 Tablet] Naproxen 375 mg PO BID #20 tablet 03/26/18 hydrOXYzine pamoate [Vistaril] 50 mg PO BID PRN #10 capsule 10/28/18 Hydrocodone/Acetaminophen 1 - 2 each PO Q6H PRN #14 tablet 01/21/19 [Hydrocodon-Acetaminophen 5-325] HYDROcod/ACETAM 5/325 [[place] 5/325] 1 - 2 tab PO Q6H PRN #10 tablet 05/28/20 Dicyclomine [Bentyl] 1 - 2 tab PO QID PRN #20 cap 05/30/20 Carisoprodol [Soma] 350 mg PO TID PRN #20 tablet 07/07/20 HYDROcod/ACETAM 5/325 [[place] 5/325] 1 - 2 tab PO Q6H PRN #15 tablet 07/07/20 - Allergies Allergies/Adverse Reactions: Allergies Allergy/AdvReac Type Severity Reaction Status Date / Time Fish Containing Products Allergy Severe Headache Verified 03/12/21 20:01 shellfish derived Allergy Unknown Verified 03/12/21 20:01 meperidine HCl * AdvReac Severe Respiratory Verified 03/12/21 20:01 [From Demerol] cephalexin monohydrate * AdvReac Intermediate Hives Verified 03/12/21 20:01 [From Keflex] Sulfa (Sulfonamide AdvReac Intermediate Hives Verified 03/12/21 20:01 Antibiotics) pecan Allergy Severe Unknown Uncoded 03/12/21 20:01 Seafood Allergy Severe Anaphylaxis Uncoded 03/12/21 20:01 Walnuts Allergy Severe Headache Uncoded 03/12/21 20:01 tape AdvReac Rash Uncoded 03/12/21 20:01 - Social History Does the pt smoke?: Yes Smoking Status: Current every day smoker Does the pt drink ETOH?: Yes Does the pt have substance abuse?: No - Immunizations Immunizations are current?: Yes Immunizations: TDAP >10years/unknown - POLST Patient has POLST: No POLST Status: Full Code PD ED PE NORMAL - Vitals Vital signs reviewed: Yes - General General: Alert and oriented X 3, No acute distress, Well developed/nourished - HEENT HEENT: Atraumatic, PERRL, EOMI - Neck Neck: No bony TTP - Cardiac Cardiac: RRR - Respiratory Respiratory: No respiratory distress, Clear bilaterally - Back Back: Other (midline discomfort along entire length of thoracic and lumbar spine without bony stepoff or deformity. bilateral thoracic and lumbar ttp in muscle distribution. ) - Derm Derm: Normal color, Warm and dry, Other (no ecchymosis. ) - Extremities Extremities: No deformity, No tenderness to palpate, Normal ROM s pain, Other (2+ BL DP pulses. normal sensation, cap refill, movement in BL LE) - Neuro Neuro: No motor deficit, No sensory deficit - Psych Psych: Normal mood, Normal affect Results - Vitals Vitals: Vital Signs - 24 hr 03/12/21 19:58 Temperature 36.0 C L Heart Rate 80 Respiratory 18 Rate Blood Pressure 140/68 H O2 Saturation 99 Oxygen O2 Source Room air PD MEDICAL DECISION MAKING - ED course ED course: 51yF p/w thoracic and lumbar back pain s/p mechanical fall from standing on wednesday. xrays noncontributory. pain improved with symptomatic care. strict return precautions discussed with patient and she will plan to f/u with her pmd for further eval. Departure - Departure Clinical Impression: Back pain, Fall from bed, Fall from standing Condition: Good Instructions: Falls Risks Prevent, ED Sprain Strain Lumbar Comments: You were seen in the Emergency department for evaluation after a fall. Your thoracic and lumbar spine x-rays showed no bony trauma, but you should follow-up with your primary doctor for further evaluation. If you continue to have pain you may need further testing. Please return to the emergency department immediately if you have any new or worsening symptoms including worsening numbness or weakness in the extremities, incontinence, inability to urinate or numbness in the groin, new or worsening symptoms or other concerns.
--- NOTE | 2021-03-12 21:35 | XRAY Report ---
PROCEDURE: Thoracic Spine 2 View INDICATIONS: s/p fall 2 days ago on ice. hx fibromyalgia TECHNIQUE: 3 views of the thoracic spine were acquired. COMPARISON: None. FINDINGS: Normal thoracic vertebral body height and alignment. No evidence of fracture. No significant degenera tive changes. IMPRESSION: No acute findings demonstrated. Reviewed by: Juventino Shearer MD on 03/12/2021 9:34 PM PST Approved by: Juventino Shearer MD on 03/12/2021 9:34 PM PST Station ID: [id number]
--- NOTE | 2021-03-12 21:35 | XRAY Report ---
PROCEDURE: Lumbar Spine 2 View INDICATIONS: Status post fall 2 days ago TECHNIQUE: 2 views of the lumbar spine were acquired. COMPARISON: None. FINDINGS: There are 5 nonrib-bearing lumbar-type vertebral bodies of normal height and alignment. No acute frac ture identified. No suspicious lytic or blastic osseous lesion. IMPRESSION: No acute finding. Reviewed by: Juventino Shearer MD on 03/12/2021 9:34 PM PST Approved by: Juventino Shearer MD on 03/12/2021 9:34 PM PST Station ID: [id number]
[2021-03-12] MEDS ORDERED: ONDANSETRON ODT 4 MG TABLET TL STA (21:38)
[2021-03-12 21:49] VITALS: BP 138/66
== END 2021-03-12 21:49 | disposition home or self-care (01) ==
LOC: ED 19:54
DX: M54.2 Cervicalgia (principal); W06.XXXA Fall from bed, initial encounter; I10 Essential (primary) hypertension; E11.42 Type 2 diabetes mellitus with diabetic polyneuropathy; Z79.4 Long term (current) use of insulin; Z95.5 Presence of coronary angioplasty implant and graft; F17.200 Nicotine dependence, unspecified, uncomplicated
CPT/HCPCS: 72070; 72100; 96372; 99283; Q0162

== ENCOUNTER 2021-08-05 14:28 | Emergency (ER) | payer OTHER ==
--- NOTE | 2021-08-05 16:44 | ED Physician Documentation ---
PD HPI NVD - Stated complaint Stated Complaint: DIARRHEA,SHAKY,DEHYDRATED - Chief complaint Chief Complaint: Abd Pain - History obtained from History obtained from: Patient - History of Present Illness Timing - onset: How many days ago (3) Timing - duration: Days (3) Timing - details: Gradual onset, Still present Associated symptoms: Abdominal pain, Other (diarrhea multiple times foul smelling frequent) Contributing factors: No: Recent antibiotics Improved by: BM Similar symptoms before: Diagnosis (irritable bowel) Recently seen: Not recently seen - Additonal information Additional information: Ning Lerma is a 51-year-old female with a history of irritable bowel syndrome and coronary artery disease who has developed acute diarrhea over the past 3 days. She states that she normally has diarrhea frequently. This is more frequent than usual, lasting longer than usual and is foul-smelling. She is complaining of some suprapubic pain as well as urinary urgency. Review of Systems Constitutional: denies: Fever Eyes: denies: Decreased vision Ears: reports: Tinnitus/ringing. denies: Ear pain Nose: denies: Rhinorrhea / runny nose, Congestion Throat: denies: Sore throat Cardiac: reports: Chest pain / pressure. denies: Palpitations Respiratory: denies: Dyspnea, Cough GI: reports: Abdominal Pain, Nausea, Diarrhea. 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 : Chronic bladder infection, Nocturia, Frequency HEENT: Chronic vision loss, Chronic sinusitis Psych: Depression, Anxiety, Post traumatic stress disorder Musculoskeletal: Fibromyalgia, Fatigue Derm: None - Past Surgical History Past Surgical History: Yes General: Colonoscopy, EGD Ortho: Other Cardiovascular: Coronary stent, Cardiac catheterization, Angioplasty HEENT: Myringotomy (tubes) - Present Medications Home Medications: Ambulatory Orders Medication Instructions Recorded Confirmed Insulin Lispro [Humalog] 12 - 45 unit SQ QID 07/19/12 11/29/17 Butalb/Acetaminophen/Caffeine 1 each PO Q6H PRN #10 capsule 05/23/14 11/29/17 [Fioricet 50-300-40 mg Capsule] Albuterol [Ventolin Hfa] 2 puffs INH Q4H PRN 09/03/14 11/29/17 Cholecalciferol (Vitamin D3) 5,000 units PO DAILY 07/01/15 11/29/17 [Vitamin D3] Gabapentin [Neurontin] 1,200 mg PO TID 07/01/15 11/29/17 Cyclobenzaprine HCl 10 mg PO TID PRN 06/05/16 11/29/17 Nortriptyline HCl 50 mg PO DAILY 10/13/17 11/29/17 raNITIdine HCl [Zantac] 300 mg PO BID 10/13/17 11/29/17 Aspirin 81 mg PO DAILY 11/29/17 11/29/17 Clopidogrel Bisulfate [Clopidogrel] 75 mg PO DAILY 11/29/17 11/29/17 Nicotine 14 mg Patch [Nicoderm] 1 each TOP Q24H 11/29/17 11/29/17 Atorvastatin Calcium 80 mg PO DAILY #60 tablet 12/01/17 Insulin Glargine [Lantus Solostar] 45 unit SUBQ DAILY #0 pen 12/01/17 Isosorbide Mononitrate [Isosorbide 120 mg PO DAILY #30 tab.er.24h 12/01/17 Mononitrate ER] Metoprolol Succinate [Toprol Xl] 50 mg PO BIDWM #60 tablet 12/01/17 lisinopriL [Lisinopril] 2.5 mg PO DAILY #30 tablet 12/01/17 Hydrocodone/Acetaminophen [[place] 1 each PO Q6H PRN #15 tablet 03/26/18 5-325 Tablet] Naproxen 375 mg PO BID #20 tablet 03/26/18 hydrOXYzine pamoate [Vistaril] 50 mg PO BID PRN #10 capsule 10/28/18 Hydrocodone/Acetaminophen 1 - 2 each PO Q6H PRN #14 tablet 01/21/19 [Hydrocodon-Acetaminophen 5-325] HYDROcod/ACETAM 5/325 [[place] 5/325] 1 - 2 tab PO Q6H PRN #10 tablet 05/28/20 Dicyclomine [Bentyl] 1 - 2 tab PO QID PRN #20 cap 05/30/20 Carisoprodol [Soma] 350 mg PO TID PRN #20 tablet 07/07/20 HYDROcod/ACETAM 5/325 [[place] 5/325] 1 - 2 tab PO Q6H PRN #15 tablet 07/07/20 Diphenoxylate/Atropine [Lomotil] 1 each PO QID #20 tablet 08/05/21 - Allergies Allergies/Adverse Reactions: Allergies Allergy/AdvReac Type Severity Reaction Status Date / Time Fish Containing Products Allergy Severe Headache Verified 08/05/21 14:41 shellfish derived Allergy Unknown Verified 08/05/21 14:41 meperidine HCl * AdvReac Severe Respiratory Verified 08/05/21 14:41 [From Demerol] cephalexin monohydrate * AdvReac Intermediate Hives Verified 08/05/21 14:41 [From Keflex] Sulfa (Sulfonamide AdvReac Intermediate Hives Verified 08/05/21 14:41 Antibiotics) pecan Allergy Severe Unknown Uncoded 08/05/21 14:41 Seafood Allergy Severe Anaphylaxis Uncoded 08/05/21 14:41 Walnuts Allergy Severe Headache Uncoded 08/05/21 14:41 tape AdvReac Rash Uncoded 08/05/21 14:41 - Social History Does the pt smoke?: Yes Smoking Status: Current every day smoker Does the pt drink ETOH?: Yes Does the pt have substance abuse?: No - Immunizations Immunizations are current?: Yes Immunizations: TDAP >10years/unknown - POLST Patient has POLST: No POLST Status: Full Code PD ED PE NORMAL - Vitals Vital signs reviewed: Yes (hypertensive ) - General General: No acute distress, Well developed/nourished - HEENT HEENT: Atraumatic, PERRL, EOMI - Neck Neck: Supple, no meningeal sign, No bony TTP - Cardiac Cardiac: RRR, No murmur - Respiratory Respiratory: No respiratory distress, Clear bilaterally - Abdomen Abdomen: Normal bowel sounds, Soft, Non distended, No organomegaly, Other (mild suprapubic tenderness without garding ) - Back Back: No CVA TTP, No spinal TTP - Derm Derm: Normal color, Warm and dry, No rash - Extremities Extremities: No deformity, No edema - Neuro Neuro: Alert and oriented X 3, 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, No motor deficit, No sensory deficit, Normal speech Eye Opening: Spontaneous Motor: Obeys Commands Verbal: Oriented GCS Score: 15 - Psych Psych: Normal mood, Normal affect Results - Vitals Vitals: Vital Signs - 24 hr 08/05/21 08/05/21 08/05/21 14:37 14:41 16:41 Temperature 36.5 C 36.5 C Heart Rate 87 87 79 Respiratory 14 14 15 Rate Blood Pressure 137/82 H 137/82 H 146/84 H O2 Saturation 99 99 97 08/05/21 18:00 Temperature Heart Rate 67 Respiratory 12 Rate Blood Pressure 118/67 O2 Saturation 99 Oxygen O2 Source Room air - EKG (time done) 1637 Rate: Rate (enter#) (91) QRS: Low voltage Compare to prior EKG: Unchanged from prior EKG (SPT 11-29-2017 no changes) Computer interpretation: Agree with computer - Labs Labs: Laboratory Tests 08/05/21 08/05/21 08/05/21 16:55 16:55 16:55 WBC 9.4 RBC 4.81 Hgb 15.2 Hct 44.8 MCV 93.1 MCH 31.6 H MCHC 33.9 RDW 13.5 Plt Count TNP MPV 11.2 H Neut # (Auto) 4.8 Lymph # (Auto) 3.6 H [place] # (Auto) 0.7 Eos # (Auto) 0.2 Baso # (Auto) 0.1 Absolute Nucleated RBC 0.00 Nucleated RBC % 0.0 Platelet Estimate NORMAL (130-450,000) Platelet Morphology PLATELET CLUMPING RBC Morph Micro Appear NORMAL APPEARANCE Sodium Potassium Chloride Carbon Dioxide Anion Gap BUN Creatinine Estimated GFR (MDRD) Glucose Lactic Acid 1.0 Calcium Total Bilirubin AST ALT Alkaline Phosphatase Troponin I High Sens 3.4 Total Protein Albumin Globulin Albumin/Globulin Ratio Lipase Urine Color Urine Clarity Urine pH Ur Specific [place] Urine Protein Urine Glucose (UA) Urine Ketones Urine Occult Blood Urine Nitrite Urine Bilirubin Urine Urobilinogen Ur Leukocyte Esterase Ur Microscopic Review Urine Culture Comments Urine Opiates Screen Ur Oxycodone Screen Urine Methadone Screen Ur Propoxyphene Screen Ur Barbiturates Screen Ur Tricyclics Screen Ur Phencyclidine Scrn Ur Amphetamine Screen U Methamphetamines Scrn U Benzodiazepines Scrn Urine Cocaine Screen U Cannabinoids Screen 08/05/21 08/05/21 17:57 17:57 WBC RBC Hgb Hct MCV MCH MCHC RDW Plt Count MPV Neut # (Auto) Lymph # (Auto) [place] # (Auto) Eos # (Auto) Baso # (Auto) Absolute Nucleated RBC Nucleated RBC % Platelet Estimate Platelet Morphology RBC Morph Micro Appear Sodium 139 Potassium 4.0 Chloride 103 Carbon Dioxide 28 Anion Gap 8.0 BUN 14 Creatinine 0.7 Estimated GFR (MDRD) 88 L Glucose 128 H Lactic Acid Calcium 9.2 Total Bilirubin 0.4 AST 18 ALT 20 Alkaline Phosphatase 85 Troponin I High Sens Total Protein 7.7 Albumin 3.7 Globulin 4.0 Albumin/Globulin Ratio 0.9 L Lipase 26 Urine Color YELLOW Urine Clarity CLEAR Urine pH 6.0 Ur Specific [place] <=1.005 Urine Protein NEGATIVE Urine Glucose (UA) NEGATIVE Urine Ketones NEGATIVE Urine Occult Blood NEGATIVE Urine Nitrite NEGATIVE Urine Bilirubin NEGATIVE Urine Urobilinogen 0.2 (NORMAL) Ur Leukocyte Esterase NEGATIVE Ur Microscopic Review NOT INDICATED Urine Culture Comments NOT INDICATED Urine Opiates Screen NEGATIVE Ur Oxycodone Screen NEGATIVE Urine Methadone Screen NEGATIVE Ur Propoxyphene Screen NEGATIVE Ur Barbiturates Screen NEGATIVE Ur Tricyclics Screen POSITIVE H Ur Phencyclidine Scrn NEGATIVE Ur Amphetamine Screen NEGATIVE U Methamphetamines Scrn NEGATIVE U Benzodiazepines Scrn NEGATIVE Urine Cocaine Screen NEGATIVE U Cannabinoids Screen NEGATIVE Procedures - IVC sono (time) 1650 Bedside IVC sono: IVC measures (cm) (0.92), Dehydration (est 1-2 liter deficit) PD MEDICAL DECISION MAKING - ED course Complexity details: reviewed old records, reviewed results, re-evaluated patient, considered differential, d/w patient ED course: 51-year-old female reports ports to the emergency department with frequent diarrheal episodes and dizziness lightheadedness and tinnitus. She has developed some chest pain associated with this as well.In the emergency department she is found to be significantly dehydrated on interrogation the inferior vena cava and she is administered saline. She has improvement in her tinnitus and in her dizziness and lightheadedness but continues to have some di zziness. We have stopped at 1 L. I did attempt to irrigate the patient's right ear and this was unsuccessful. We did use a mineral oil enema followed by saline irrigation The procedure was painful for the patient and wax did not dislodge from the sides of the ear canal. The patient wanted the procedure abandoned and we are are honoring this. I will asked patient to use a home remedy for cerumen impaction. Departure - Departure Disposition: 01 Home, Self Care Clinical Impression: Diarrhea Qualifiers: Diarrhea type: unspecified type Qualified Code(s): R19.7 - Diarrhea, unspecified Condition: Stable Instructions: ED Wax Ear Home Removal, ED Diet Vomiting Diarrhea Follow-Up: Geri Mata ARNP [Primary Care Provider] - Prescriptions: Diphenoxylate/Atropine [Lomotil] 1 each PO QID #20 tablet Comments: Ning today it looks like you were dehydrated from excessive diarrhea. We have hydrated you today with 1 L of saline and I have written a prescription for some Lomotil to help control the diarrhea. This has been E scribed to Dara Reddy in [place].
[2021-08-05] MEDS ORDERED: SODIUM CHLORIDE 0.9% 1,000 ML IV STA (16:55)
[2021-08-05 17:03] LABS: BASOPHILS # (AUTO) 0.1 10^3/uL (0.0-0.1); BASOPHILS % (AUTO) 0.5 %; EOSINOPHILS # (AUTO) 0.2 10^3/uL (0.0-0.7); EOSINOPHILS % (AUTO) 2.3 %; HCT - HEMATOCRIT 44.8 % (37.0-47.0); HGB - HEMOGLOBIN 15.2 g/dL (12.0-16.0); LYMPHOCYTES # (AUTO) 3.6 10^3/uL (1.5-3.5); LYMPHOCYTES % (AUTO) 38.3 %; MEAN CORPUSCULAR HEMOGLOBIN 31.6 pg (27.0-31.0); MEAN CORPUSCULAR HGB CONC 33.9 g/dL (32.0-36.0); MEAN CORPUSCULAR VOLUME 93.1 fL (81.0-99.0); MEAN PLATELET VOLUME 11.2 fL (7.9-10.8); MONOCYTES # (AUTO) 0.7 10^3/uL (0.0-1.0); MONOCYTES % (AUTO) 6.9 %; NEUTROPHILS # (AUTO) 4.8 10^3/uL (1.5-6.6); NEUTROPHILS % (AUTO) 51.8 %; RED BLOOD COUNT 4.81 10^6/uL (4.20-5.40); RED CELL DISTRIBUTION WIDTH 13.5 % (12.0-15.0); WHITE BLOOD COUNT 9.4 x10^3/uL (4.8-10.8)
[2021-08-05 17:24] LABS: PLATELET ESTIMATE, MANUAL NORMAL (130-450,000) (NORMAL); PLATELET MORPHOLOGY PLATELET CLUMPING (NORMAL); RBC MORPHOLOGY (MULTIPLE) NORMAL APPEARANCE (NORMAL)
--- NOTE | 2021-08-05 17:24 | XRAY Report ---
PROCEDURE: Chest 1 View X-Ray INDICATIONS: chest pain TECHNIQUE: One view of the chest was acquired. COMPARISON: None FINDINGS: Surgical changes and devices: None. Lungs and pleura: No pleural effusions or pneumothorax. Question mild interstitial pulmonary edema. Mediastinum: Mediastinal contours appear normal. Top normal heart size. Bones and chest wall: No suspicious bony lesions. Overlying soft tissues appear unremarkable. IMPRESSION: Question mild interstitial pulmonary edema. Reviewed by: Edward Fajardo MD on 08/05/2021 5:22 PM PDT Approved by: Edward Fajardo MD on 08/05/2021 5:22 PM PDT Station ID: [id number]
[2021-08-05 18:00] LABS: MUDS CUTOFF CONCENTRATIONS CUTOFF CONC BELOW:
[2021-08-05 18:02] LABS: BILIRUBIN,URINE NEGATIVE (NEGATIVE); GLUCOSE, URINE (UA) NEGATIVE (NEGATIVE); KETONES,URINE (UA) NEGATIVE (NEGATIVE); LEUKOCYTE ESTERASE, URINE NEGATIVE (NEGATIVE); NITRITE,URINE NEGATIVE (NEGATIVE); OCCULT BLOOD,URINE NEGATIVE (NEGATIVE); PROTEIN,URINE NEGATIVE (NEGATIVE); UROBILINOGEN,URINE 0.2 (NORMAL) E.U./dL (NORMAL)
[2021-08-05 18:07] LABS: CLARITY,URINE CLEAR (CLEAR)
[2021-08-05 18:08] VITALS: BP 118/67
[2021-08-05 18:13] LABS: AMPHETAMINE SCREEN,URINE NEGATIVE (NEGATIVE); BENZODIAZEPINES SCREEN, URINE NEGATIVE (NEGATIVE); COCAINE SCREEN URINE NEGATIVE (NEGATIVE); METHAMPHETAMINES SCREEN, URINE NEGATIVE (NEGATIVE); OPIATE SCREEN, URINE NEGATIVE (NEGATIVE); THC CANNABINOID SCREEN, URINE NEGATIVE (NEGATIVE); TRICYCLIC ANTIDEPRESSANT,URINE POSITIVE (NEGATIVE)
[2021-08-05 18:14] LABS: BARBITURATE SCREEN,UR NEGATIVE (NEGATIVE); METHADONE SCREEN, URINE NEGATIVE (NEGATIVE); OXYCODONE SCREEN, URINE NEGATIVE (NEGATIVE); PROPOXYPHENE SCREEN, URINE NEGATIVE (NEGATIVE)
[2021-08-05 18:17] LABS: ALBUMIN 3.7 g/dL (3.2-5.5); ALBUMIN/GLOBULIN RATIO 0.9 (1.0-2.2); BILIRUBIN,TOTAL 0.4 mg/dL (0.2-1.0); CALCIUM 9.2 mg/dL (8.5-10.3); CREATININE 0.7 mg/dL (0.4-1.0); TOTAL PROTEIN 7.7 g/dL (6.7-8.2)
== END 2021-08-05 18:43 | disposition home or self-care (01) ==
LOC: ED 14:28
DX: R19.7 Diarrhea, unspecified (principal); I10 Essential (primary) hypertension; E11.9 Type 2 diabetes mellitus without complications; Z79.4 Long term (current) use of insulin; F17.200 Nicotine dependence, unspecified, uncomplicated
CPT/HCPCS: 36415; 69209; 80053; 80306; 81001; 81003; 83605; 83690; 84484; 85025; 87040; 87086; 93005; 99282

== ENCOUNTER 2021-08-05 16:18 | Outpatient (CLI) | payer OTHER | END 2021-08-05 16:19 | disposition EMS.NT | LOC: EMS 16:18 | DX: R07.89 Other chest pain (principal) ==

== ENCOUNTER 2021-11-15 08:00 | Outpatient (CLI) | payer OTHER | END 2021-11-15 23:59 | disposition home or self-care (01) | LOC: LAB.N 08:00 | PROVIDERS: ATTEND Physician Assistant Medical | DX: N30.00 Acute cystitis without hematuria (principal) | CPT/HCPCS: 87086 ==

== ENCOUNTER 2022-08-14 16:53 | Emergency (ER) | payer OTHER ==
[2022-08-14 17:03] VITALS: BP 149/70
--- NOTE | 2022-08-14 17:26 | ED Physician Documentation ---
History of Present Illness - Stated complaint Stated Complaint: R TOOTH PX - Chief complaint Chief Complaint: Heent - Additonal information Additional information: 52-year-old female presents emergency department for evaluation of acute right dental pain. Reports that 2 days ago it Fell off the posterior molar. She has had a foul smell and bad taste in since. She does have some mild right upper cheek swelling. She is scheduled to see a dentist this upcoming Wednesday for extraction. Her PCP advised her to come to the ER for analgesia and antibiotics. Patient has no trismus or fevers. She is a 1/2 pack/day tobacco user Review of Systems Constitutional: denies: Fever Throat: reports: Dental pain / toothache Cardiac: reports: Reviewed and negative Respiratory: reports: Reviewed and negative PD PAST MEDICAL HISTORY - Past Medical History Cardiovascular: Hypertension, High cholesterol, Arrhythmia, Other Respiratory: Sleep apnea, CPAP use, Other Neuro: Headaches, Migraines, Peripheral neuropathy Endocrine/Autoimmune: Type 2 diabetes, Other GI: GERD, GI bleed, Ulcers, Colon polyps, Hemorrhoids UTILITY PERSON: None : Chronic bladder infection, Nocturia, Frequency HEENT: Chronic vision loss, Chronic sinusitis Psych: Depression, Anxiety, Post traumatic stress disorder Musculoskeletal: Fibromyalgia, Fatigue Derm: None - Past Surgical History Past Surgical History: Yes General: Colonoscopy, EGD Ortho: Other Cardiovascular: Coronary stent, Cardiac catheterization, Angioplasty HEENT: Myringotomy (tubes) - Present Medications Home Medications: Ambulatory Orders Medication Instructions Recorded Confirmed Insulin Lispro [Humalog] 12 - 45 unit SQ QID 07/19/12 11/29/17 Butalb/Acetaminophen/Caffeine 1 each PO Q6H PRN #10 capsule 05/23/14 11/29/17 [Fioricet 50-300-40 mg Capsule] Albuterol [Ventolin Hfa] 2 puffs INH Q4H PRN 09/03/14 11/29/17 Cholecalciferol (Vitamin D3) 5,000 units PO DAILY 07/01/15 11/29/17 [Vitamin D3] Gabapentin [Neurontin] 1,200 mg PO TID 07/01/15 11/29/17 Cyclobenzaprine HCl 10 mg PO TID PRN 06/05/16 11/29/17 Nortriptyline HCl 50 mg PO DAILY 10/13/17 11/29/17 raNITIdine HCl [Zantac] 300 mg PO BID 10/13/17 11/29/17 Aspirin 81 mg PO DAILY 11/29/17 11/29/17 Clopidogrel Bisulfate [Clopidogrel] 75 mg PO DAILY 11/29/17 11/29/17 Nicotine 14 mg Patch [Nicoderm] 1 each TOP Q24H 11/29/17 11/29/17 Atorvastatin Calcium 80 mg PO DAILY #60 tablet 12/01/17 Insulin Glargine [Lantus Solostar] 45 unit SUBQ DAILY #0 pen 12/01/17 Isosorbide Mononitrate [Isosorbide 120 mg PO DAILY #30 tab.er.24h 12/01/17 Mononitrate ER] Metoprolol Succinate [Toprol Xl] 50 mg PO BIDWM #60 tablet 12/01/17 lisinopriL [Lisinopril] 2.5 mg PO DAILY #30 tablet 12/01/17 Hydrocodone/Acetaminophen [[place] 1 each PO Q6H PRN #15 tablet 03/26/18 5-325 Tablet] Naproxen 375 mg PO BID #20 tablet 03/26/18 hydrOXYzine pamoate [Vistaril] 50 mg PO BID PRN #10 capsule 10/28/18 Hydrocodone/Acetaminophen 1 - 2 each PO Q6H PRN #14 tablet 01/21/19 [Hydrocodon-Acetaminophen 5-325] HYDROcod/ACETAM 5/325 [[place] 5/325] 1 - 2 tab PO Q6H PRN #10 tablet 05/28/20 Dicyclomine [Bentyl] 1 - 2 tab PO QID PRN #20 cap 05/30/20 Carisoprodol [Soma] 350 mg PO TID PRN #20 tablet 07/07/20 HYDROcod/ACETAM 5/325 [[place] 5/325] 1 - 2 tab PO Q6H PRN #15 tablet 07/07/20 Diphenoxylate/Atropine [Lomotil] 1 each PO QID #20 tablet 08/05/21 Doxycycline Hyclate 100 mg PO BID #14 cap 08/14/22 HYDROcod/ACETAM 5/325 [[place] 5/325] 1 tablet PO BID PRN #10 tablet 08/14/22 - Allergies Allergies/Adverse Reactions: Allergies Allergy/AdvReac Type Severity Reaction Status Date / Time Fish Containing Products Allergy Severe Headache Verified 08/14/22 17:02 shellfish derived Allergy Unknown Verified 08/14/22 17:02 meperidine HCl * AdvReac Severe Respiratory Verified 08/14/22 17:02 [From Demerol] cephalexin monohydrate * AdvReac Intermediate Hives Verified 08/14/22 17:02 [From Keflex] Sulfa (Sulfonamide AdvReac Intermediate Hives Verified 08/14/22 17:02 Antibiotics) pecan Allergy Severe Unknown Uncoded 08/14/22 17:02 Seafood Allergy Severe Anaphylaxis Uncoded 08/14/22 17:02 Walnuts Allergy Severe Headache Uncoded 08/14/22 17:02 tape AdvReac Rash Uncoded 08/14/22 17:02 - Social History Does the pt smoke?: Yes Smoking Status: Current every day smoker Does the pt drink ETOH?: Yes Does the pt have substance abuse?: No - Immunizations Immunizations are current?: Yes Immunizations: TDAP >10years/unknown - POLST Patient has POLST: No POLST Status: Full Code PD ED PE NORMAL - General General: Alert and oriented X 3, No acute distress - HEENT HEENT: Atraumatic, Moist mucous membranes. No: Dentition benign (Generally poor dentition. Right posterior molar with obvious dental caries. No gumline swelling or fluctuance. No obvious drainage. No trismus.) - Neck Neck: No adenopathy - Cardiac Cardiac: RRR, No murmur - Respiratory Respiratory: Clear bilaterally Results - Vitals Vitals: Vital Signs - 24 hr 08/14/22 16:59 Temperature 36.1 C L Heart Rate 73 Respiratory 16 Rate Blood Pressure 149/70 H O2 Saturation 99 Oxygen O2 Source Room air PD Medical Decision Making - ED course Complexity details: considered differential, d/w patient ED course: 52-year-old female presents emergency department for evaluation of acute right upper tooth and mouth pain at the site of a molar were Fell off. She has been having a foul smell and bad breath over the last 2 days. The tooth itself peers severely carious. I suspect dental root infection or abscess. Given the patient's allergy profile she will be started on doxycycline. Limited prescription of hydrocodone is also being sent to the pharmacy. I am prescribing a short course of short-acting opioid pain medication for this patient. 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 I have discussed that the opioids are for short term therapy only, and will not be refilled from the ED. Departure - Departure Disposition: 01 Home, Self Care Clinical Impression: Dental abscess Condition: Stable Record reviewed to determine appropriate education?: Yes Instructions: ED Abscess Dental Prescriptions: Doxycycline Hyclate 100 mg PO BID #14 cap HYDROcod/ACETAM 5/325 [[place] 5/325] 1 tablet PO BID PRN #10 tablet PRN Reason: Pain Comments: Ning your posterior molar cap came off and this is most likely because there was an infection brewing. We will start you on antibiotic called doxycycline. While taking this she should avoid sun exposure and wear long sleeves and a hat when outside. I sent a limited prescription of hydrocodone to [facility] in [place]. In general I want you take 600 mg of ibuprofen or alternate with 500 mg of Tylenol 4 times a day. Gargle with warm salt water this will help rinse infection and improve inflammation. Return to the emergency department if you have fevers, inability to open your mouth or have severe facial swelling. I am prescribing a short course of narcotic pain medication for you. These are potentially dangerous and addictive medications that should be used carefully. These medications may constipate you. Take an [id number] stool softener (docusate) twice daily with plenty of water while taking these medications. If you go 24 hours without a bowel movement, take [id number] miralax, per package instructions. Do not drink or drive while taking these medications. If you received narcotic or sedating medications while in the emergency department, do not drive for 24 hours. Store this medication in a safe, secure place and out of reach of children. It is a violation of federal law to give or sell this medication to another person or to use in a manner other than prescribed. The ED will not refill narcotic prescriptions, including prescriptions lost or stolen. To dispose of unwanted medications: 1. [facility] [address] in [place] has a medication drop box. They accept prescription medications (in pill form) Wednesday through Wednesday 9:00 a.m. to 5:00 p.m. 2. The [facility] accepts prescription medications (in pill form only) for disposal year round. Call for more information. 3. Contact the [facility] for the next [facility] sponsored prescription drug collection event. , [phone], or [phone]; Note that many narcotic pain relievers also contain Tylenol/acetaminophen. Please ensure that your total dose of acetaminophen from all sources does not exceed 3 g (3000 mg) per day.
--- OUTSIDE RECORDS SUMMARY | 2022-08-14 17:39 | EXTERNAL MEDICAL SUMMARY RPT | Continuity of Care Document ---
Author Name Unknown Address [address] [place] [address] Phone Organization [place] Address [address] [place] [address] Phone Care Team Providers Care District Supervisor Name Role Phone Aftab Riley Unavailable Unavailable Allergies and Intolerances date description facility type (no date) Sulfa (Sulfonamide Antibiotics) [facility] (no date) cephalexin [facility] (unknown) Problems date description facility 2022-07-20 00:00 Diabetes mellitus [facility] 2022-07-30 08:17 Type 2 diabetes mellitus with h yperglycemia [facility] Results/Labs test date author facility value unit interpretation Result panel 1 (unknown) (no date) (unknown) [facility] (no value) (units unknown) (unknown) Result panel 2 (unknown) (no date) (unknown) [facility] (no value) (units unknown) (unknown) Result panel 3 (unknown) (no date) (unknown) [facility] (no value) (units unknown) (unknown) Result panel 4 (unknown) (no date) (unknown) [facility] (no value) (units unknown) (unknown) Result panel 5 (unknown) (no date) (unknown) [facility] (no value) (units unknown) (unknown) Result panel 6 (unknown) (no date) (unknown) [facility] (no value) (units unknown) (unknown) Result panel 7 (unknown) (no date) (unknown) [facility] (no value) (units unknown) (unknown) Result panel 8 (unknown) (no date) (unknown) [facility] (no value) (units unknown) (unknown) Result panel 9 (unknown) (no date) (unknown) [facility] (no value) (units unknown) (unknown) Result panel 10 (unknown) (no date) (unknown) [facility] (no value) (units unknown) (unknown) Result panel 11 (unknown) (no date) (unknown) [facility] (no value) (units unknown) (unknown) Result panel 12 (unknown) (no date) (unknown) [facility] (no value) (units unknown) (unknown) Result panel 13 (unknown) (no date) (unknown) [facility] (no value) (units unknown) (unknown) Result panel 14 (unknown) (no date) (unknown) [facility] (no value) (units unknown) (unknown) Result panel 15 (unknown) (no date) (unknown) [facility] (no value) (units unknown) (unknown) Result panel 16 (unknown) (no date) (unknown) [facility] (no value) (units unknown) (unknown) Result panel 17 (unknown) (no date) (unknown) [facility] (no value) (units unknown) (unknown) Result panel 18 (unknown) (no date) (unknown) [facility] (no value) (units unknown) (unknown) Result panel 19 (unknown) (no date) (unknown) [facility] (no value) (units unknown) (unknown) Result panel 20 (unknown) (no date) (unknown) [facility] (no value) (units unknown) (unknown) Result panel 21 (unknown) (no date) (unknown) [facility] (no value) (units unknown) (unknown) Result panel 22 (unknown) (no date) (unknown) [facility] (no value) (units unknown) (unknown) Result panel 23 (unknown) (no date) (unknown) [facility] (no value) (units unknown) (unknown) Result panel 24 (unknown) (no date) (unknown) [facility] (no value) (units unknown) (unknown) Result panel 25 (unknown) (no date) (unknown) [facility] (no value) (units unknown) (unknown) Result panel 26 (unknown) (no date) (unknown) [facility] (no value) (units unknown) (unknown) Result panel 27 (unknown) (no date) (unknown) [facility] (no value) (units unknown) (unknown) Result panel 28 (unknown) (no date) (unknown) [facility] (no value) (units unknown) (unknown) Result panel 29 (unknown) (no date) (unknown) [facility] (no value) (units unknown) (unknown) Result panel 30 (unknown) (no date) (unknown) [facility] (no value) (units unknown) (unknown) Result panel 31 (unknown) (no date) (unknown) [facility] (no value) (units unknown) (unknown) Result panel 32 (unknown) (no date) (unknown) [facility] (no value) (units unknown) (unknown) Result panel 33 (unknown) (no date) (unknown) [facility] (no value) (units unknown) (unknown) Result panel 34 (unknown) (no date) (unknown) [facility] (no value) (units unknown) (unknown) Result panel 35 (unknown) (no date) (unknown) [facility] (no value) (units unknown) (unknown) Result panel 36 (unknown) (no date) (unknown) [facility] (no value) (units unknown) (unknown) Result panel 37 (unknown) (no date) (unknown) [facility] (no value) (units unknown) (unknown) Result panel 38 (unknown) (no date) (unknown) [facility] (no value) (units unknown) (unknown) Result panel 39 (unknown) (no date) (unknown) [facility] (no value) (units unknown) (unknown) Result panel 40 (unknown) (no date) (unknown) [facility] (no value) (units unknown) (unknown) Result panel 41 (unknown) (no date) (unknown) [facility] (no value) (units unknown) (unknown) Result panel 42 (unknown) (no date) (unknown) [facility] (no value) (units unknown) (unknown) Result panel 43 (unknown) (no date) (unknown) [facility] (no value) (units unknown) (unknown) Result panel 44 (unknown) (no date) (unknown) [facility] (no value) (units unknown) (unknown) Result panel 45 (unknown) (no date) (unknown) [facility] (no value) (units unknown) (unknown) Result panel 46 (unknown) (no date) (unknown) [facility] (no value) (units unknown) (unknown) Result panel 47 (unknown) (no date) (unknown) [facility] (no value) (units unknown) (unknown) Result panel 48 (unknown) (no date) (unknown) [facility] (no value) (units unknown) (unknown) Result panel 49 (unknown) (no date) (unknown) [facility] (no value) (units unknown) (unknown) Result panel 50 (unknown) (no date) (unknown) [facility] (no value) (units unknown) (unknown) Result panel 51 (unknown) (no date) (unknown) [facility] (no value) (units unknown) (unknown) Result panel 52 (unknown) (no date) (unknown) [facility] (no value) (units unknown) (unknown) Result panel 53 (unknown) (no date) (unknown) [facility] (no value) (units unknown) (unknown) Result panel 54 (unknown) (no date) (unknown) [facility] (no value) (units unknown) (unknown) Result panel 55 (unknown) (no date) (unknown) [facility] (no value) (units unknown) (unknown) Result panel 56 (unknown) (no date) (unknown) [facility] (no value) (units unknown) (unknown) Result panel 57 (unknown) (no date) (unknown) [facility] (no value) (units unknown) (unknown) Result panel 58 (unknown) (no date) (unknown) [facility] (no value) (units unknown) (unknown) Result panel 59 (unknown) (no date) (unknown) [facility] (no value) (units unknown) (unknown) Result panel 60 (unknown) (no date) (unknown) [facility] (no value) (units unknown) (unknown) Result panel 61 (unknown) (no date) (unknown) [facility] (no value) (units unknown) (unknown) Result panel 62 (unknown) (no date) (unknown) [facility] (no value) (units unknown) (unknown) Result panel 63 (unknown) (no date) (unknown) [facility] (no value) (units unknown) (unknown) Result panel 64 (unknown) (no date) (unknown) [facility] (no value) (units unknown) (unknown) Result panel 65 (unknown) (no date) (unknown) [facility] (no value) (units unknown) (unknown) Result panel 66 (unknown) (no date) (unknown) [facility] (no value) (units unknown) (unknown) Result panel 67 (unknown) (no date) (unknown) [facility] (no value) (units unknown) (unknown) Result panel 68 (unknown) (no date) (unknown) [facility] (no value) (units unknown) (unknown) Result panel 69 (unknown) (no date) (unknown) [facility] (no value) (units unknown) (unknown) Result panel 70 (unknown) (no date) (unknown) [facility] (no value) (units unknown) (unknown) Result panel 71 (unknown) (no date) (unknown) [facility] (no value) (units unknown) (unknown) Result panel 72 (unknown) (no date) (unknown) [facility] (no value) (units unknown) (unknown) Result panel 73 (unknown) (no date) (unknown) [facility] (no value) (units unknown) (unknown) Result panel 74 (unknown) (no date) (unknown) [facility] (no value) (units unknown) (unknown) Result panel 75 (unknown) (no date) (unknown) [facility] (no value) (units unknown) (unknown) Result panel 76 (unknown) (no date) (unknown) [facility] (no value) (units unknown) (unknown) Result panel 77 (unknown) (no date) (unknown) [facility] (no value) (units unknown) (unknown) Result panel 78 (unknown) (no date) (unknown) [facility] (no value) (units unknown) (unknown) Result panel 79 (unknown) (no date) (unknown) [facility] (no value) (units unknown) (unknown) Result panel 80 (unknown) (no date) (unknown) [facility] (no value) (units unknown) (unknown) Result panel 81 (unknown) (no date) (unknown) [facility] (no value) (units unknown) (unknown) Result panel 82 (unknown) (no date) (unknown) [facility] (no value) (units unknown) (unknown) Result panel 83 (unknown) (no date) (unknown) [facility] (no value) (units unknown) (unknown) Result panel 84 (unknown) (no date) (unknown) [facility] (no value) (units unknown) (unknown) Result panel 85 (unknown) (no date) (unknown) [facility] (no value) (units unknown) (unknown) Result panel 86 (unknown) (no date) (unknown) [facility] (no value) (units unknown) (unknown) Result panel 87 (unknown) (no date) (unknown) [facility] (no value) (units unknown) (unknown) Result panel 88 (unknown) (no date) (unknown) [facility] (no value) (units unknown) (unknown) Result panel 89 (unknown) (no date) (unknown) [facility] (no value) (units unknown) (unknown) Result panel 90 (unknown) (no date) (unknown) [facility] (no value) (units unknown) (unknown) Result panel 91 (unknown) (no date) (unknown) [facility] (no value) (units unknown) (unknown) Result panel 92 (unknown) (no date) (unknown) [facility] (no value) (units unknown) (unknown) Result panel 93 (unknown) (no date) (unknown) [facility] (no value) (units unknown) (unknown) Result panel 94 (unknown) (no date) (unknown) [facility] (no value) (units unknown) (unknown) Result panel 95 (unknown) (no date) (unknown) [facility] (no value) (units unknown) (unknown) Result panel 96 (unknown) (no date) (unknown) [facility] (no value) (units unknown) (unknown) Result panel 97 (unknown) (no date) (unknown) [facility] (no value) (units unknown) (unknown) Result panel 98 (unknown) (no date) (unknown) [facility] (no value) (units unknown) (unknown) Result panel 99 (unknown) (no date) (unknown) [facility] (no value) (units unknown) (unknown) Result panel 100 (unknown) (no date) (unknown) [facility] (no value) (units unknown) (unknown) Result panel 101 (unknown) (no date) (unknown) [facility] (no value) (units unknown) (unknown) Result panel 102 (unknown) (no date) (unknown) [facility] (no value) (units unknown) (unknown) Result panel 103 (unknown) (no date) (unknown) [facility] (no value) (units unknown) (unknown) Result panel 104 (unknown) (no date) (unknown) [facility] (no value) (units unknown) (unknown) Result panel 105 (unknown) (no date) (unknown) [facility] (no value) (units unknown) (unknown) Result panel 106 (unknown) (no date) (unknown) [facility] (no value) (units unknown) (unknown) Result panel 107 (unknown) (no date) (unknown) [facility] (no value) (units unknown) (unknown) Result panel 108 (unknown) (no date) (unknown) [facility] (no value) (units unknown) (unknown) Result panel 109 (unknown) (no date) (unknown) [facility] (no value) (units unknown) (unknown) Result panel 110 (unknown) (no date) (unknown) [facility] (no value) (units unknown) (unknown) Result panel 111 (unknown) (no date) (unknown) [facility] (no value) (units unknown) (unknown) Result panel 112 (unknown) (no date) (unknown) [facility] (no value) (units unknown) (unknown) Result panel 113 (unknown) (no date) (unknown) (unknown) 1.1 % (unknown ) (unknown) (no date) (unknown) (unknown) 1.7 % (unknown ) (unknown) (no date) (unknown) (unknown) 10.4 x10 3/ul (unknow n) (unknown) (no date) (unknown) (unknown) 100 /ul (unknown ) (unknown) (no date) (unknown) (unknown) 13.9 % (unknown ) (unknown) (no date) (unknown) (unknown) 15.7 g/dl (unknown ) (unknown) (no date) (unknown) (unknown) 200 /ul (unknown ) (unknown) (no date) (unknown) (unknown) 264 x10 3/ul (unknow n) (unknown) (no date) (unknown) (unknown) 29.7 % (unknown ) (unknown) (no date) (unknown) (unknown) 3100 /ul (unknown ) (unknown) (no date) (unknown) (unknown) 32.2 pg (unknown ) (unknown) (no date) (unknown) (unknown) 34.4 % (unknown ) (unknown) (no date) (unknown) (unknown) 4.88 x10 6/ul (unknow n) (unknown) (no date) (unknown) (unknown) 45.6 % (unknown ) (unknown) (no date) (unknown) (unknown) 6.5 % (unknown ) (unknown) (no date) (unknown) (unknown) 61.0 % (unknown ) (unknown) (no date) (unknown) (unknown) 6300 /ul (unknown ) (unknown) (no date) (unknown) (unknown) 700 /ul (unknown ) (unknown) (no date) (unknown) (unknown) 93.6 fl (unknown ) Result panel 114 (unknown) (no date) (unknown) (unknown) > 60 ml/min (unknown ) (unknown) (no date) (unknown) (unknown) > 60 ml/min (unknown ) (unknown) (no date) (unknown) (unknown) 0.5 mg/dl (unknown ) (unknown) (no date) (unknown) (unknown) 0.66 mg/dl (unknown ) (unknown) (no date) (unknown) (unknown) 1.1 (units unknown) (unknown) (unknown) (no date) (unknown) (unknown) 112 u/l (unknown ) (unknown) (no date) (unknown) (unknown) 131 mmol/l (unknown ) (unknown) (no date) (unknown) (unknown) 17 mg/dl (unknown ) (unknown) (no date) (unknown) (unknown) 23 iu/l (unknown ) (unknown) (no date) (unknown) (unknown) 25 iu/l (unknown ) (unknown) (no date) (unknown) (unknown) 25 mmol/l (unknown ) (unknown) (no date) (unknown) (unknown) 25.8 (units unknown) (unknown) (unknown) (no date) (unknown) (unknown) 3.9 g/dl (unknown ) (unknown) (no date) (unknown) (unknown) 327 mg/dl (unknown ) (unknown) (no date) (unknown) (unknown) 327 mg/dl (unknown ) (unknown) (no date) (unknown) (unknown) 4.2 g/dl (unknown ) (unknown) (no date) (unknown) (unknown) 4.6 mmol/l (unknown ) (unknown) (no date) (unknown) (unknown) 66 u/l (unknown ) (unknown) (no date) (unknown) (unknown) 8.1 g/dl (unknown ) (unknown) (no date) (unknown) (unknown) 9.5 mg/dl (unknown ) (unknown) (no date) (unknown) (unknown) 99 mmol/l (unknown ) Result panel 115 (unknown) (no date) (unknown) (unknown) 0-1 /HPF (units unknown) (unknown) (unknown) (no date) (unknown) (unknown) 0-1/HPF (units unknown) (unknown) (unknown) (no date) (unknown) (unknown) 0-1/HPF (units unknown) (unknown) (unknown) (no date) (unknown) (unknown) None Seen (units unknown) (unknown) Result panel 116 (unknown) (no date) (unknown) (unknown) Negative (units unknown) (unknown) Result panel 117 (unknown) (no date) (unknown) (unknown) 0.2 e.u./dl (unknown ) (unknown) (no date) (unknown) (unknown) 1 (units unknown) (unknown) (unknown) (no date) (unknown) (unknown) 1.015 (units unknown) (unknown) (unknown) (no date) (unknown) (unknown) 2 (units unknown) (unknown) (unknown) (no date) (unknown) (unknown) 2 g/dl (unknown ) (unknown) (no date) (unknown) (unknown) 6.0 (units unknown) (unknown) (unknown) (no date) (unknown) (unknown) CLEAR (units unknown) (unknown) (unknown) (no date) (unknown) (unknown) NEGATIVE (units unknown) (unknown) (unknown) (no date) (unknown) (unknown) TRACE-INTACT (units unknown) (unknown) (unknown) (no date) (unknown) (unknown) YELLOW (units unknown) (unknown) (unknown) (no date) (unknown) (unknown) YELLOW (units unknown) (unknown) Result panel 118 (unknown) (no date) (unknown) (unknown) 0.2 e.u./dl (unknown ) (unknown) (no date) (unknown) (unknown) 1 (units unknown) (unknown) (unknown) (no date) (unknown) (unknown) 1.015 (units unknown) (unknown) (unknown) (no date) (unknown) (unknown) 2 (units unknown) (unknown) (unknown) (no date) (unknown) (unknown) 2 g/dl (unknown ) (unknown) (no date) (unknown) (unknown) 6.0 (units unknown) (unknown) (unknown) (no date) (unknown) (unknown) CLEAR (units unknown) (unknown) (unknown) (no date) (unknown) (unknown) NEGATIVE (units unknown) (unknown) (unknown) (no date) (unknown) (unknown) Negative (units unknown) (unknown) (unknown) (no date) (unknown) (unknown) TRACE-INTACT (units unknown) (unknown) (unknown) (no date) (unknown) (unknown) YELLOW (units unknown) (unknown) (unknown) (no date) (unknown) (unknown) YELLOW (units unknown) (unknown) Result panel 119 (unknown) (no date) (unknown) (unknown) (no value) (units unknown) (unknown) (unknown) (no date) (unknown) (unknown) [id number] (units unknown) (unknown) (unknown) (no date) (unknown) (unknown) 07/20/2207/2007/20/22 Range/Units (units unknown) (unknown) (unknown) (no date) (unknown) (unknown) 07/20/22 15:08 (unit s unknown) (unknown) (unknown) (no date) (unknown) (unknown) 07/20/22 15:18 (unit s unknown) (unknown) (unknown) (no date) (unknown) (unknown) 07/20/22 (units unknown) (unknown) (unknown) (no date) (unknown) (unknown) 15:00 07/20/22 (unit s unknown) (unknown) (unknown) (no date) (unknown) (unknown) 15:08 15:08 15:08 (u nits unknown) (unknown) (unknown) (no date) (unknown) (unknown) 15:18 15:18 15:18 (u nits unknown) (unknown) (unknown) (no date) (unknown) (unknown) 17:25 07/20/22 (unit s unknown) (unknown) (unknown) (no date) (unknown) (unknown) 19:25 (units unknown) (unknown) (unknown) (no date) (unknown) (unknown) 19:26 07/20/22 (unit s unknown) (unknown) (unknown) (no date) (unknown) (unknown) 19:30 (units unknown) (unknown) (unknown) (no date) (unknown) (unknown) 52-year-old male nonsmoker with history of diabetes presents with concerns of (units unknown) (unknown) (unknown) (no date) (unknown) (unknown) ALT (<35) IU/L (unit s unknown) (unknown) (unknown) (no date) (unknown) (unknown) ALT 23 (<35) IU/L (u nits unknown) (unknown) (unknown) (no date) (unknown) (unknown) AST (14-36) IU/L (un its unknown) (unknown) (unknown) (no date) (unknown) (unknown) AST 25 (14-36) IU/L (units unknown) (unknown) (unknown) (no date) (unknown) (unknown) Acetaminophen (Acetaminophen 325 Mg Tablet) 975 mg PO NOW ONE (units unknown) (unknown) (unknown) (no date) (unknown) (unknown) Age/Sex: 52 / F (uni ts unknown) (unknown) (unknown) (no date) (unknown) (unknown) Albumin (3.5-5 .0) g/dL (units unknown) (unknown) (unknown) (no date) (unknown) (unknown) Albumin 4.2 (3.5-5.0) g/dL (units unknown) (unknown) (unknown) (no date) (unknown) (unknown) Albumin/Globul in Ratio (1.0-2.8) (units unknown) (unknown) (unknown) (no date) (unknown) (unknown) Albumin/Globul in Ratio 1.1 (1.0-2.8) (units unknown) (unknown) (unknown) (no date) (unknown) (unknown) Alkaline Phosphatase (38-126) U/L (units unknown) (unknown) (unknown) (no date) (unknown) (unknown) Alkaline Phosphatase 112 (38-126) U/L (units unknown) (unknown) (unknown) (no date) (unknown) (unknown) Allergies (units unknown) (unknown) (unknown) (no date) (unknown) (unknown) Allergy/AdvRea c Type Severity Reaction Status Date / Time (units unknown) (unknown) (unknown) (no date) (unknown) (unknown) Antibiotics) (units unknown) (unknown) (unknown) (no date) (unknown) (unknown) BUN (7-17) mg/dL (un its unknown) (unknown) (unknown) (no date) (unknown) (unknown) BUN 17 (7-17) mg/dL (units unknown) (unknown) (unknown) (no date) (unknown) (unknown) BUN/Creatinine Ratio (6-22) (units unknown) (unknown) (unknown) (no date) (unknown) (unknown) BUN/Creatinine Ratio 25.8 H (6-22) (units unknown) (unknown) (unknown) (no date) (unknown) (unknown) Baso # (Auto) (0-100) /uL (units unknown) (unknown) (unknown) (no date) (unknown) (unknown) Baso # (Auto) 100 (0-100) /uL (units unknown) (unknown) (unknown) (no date) (unknown) (unknown) Baso % (Auto) (0-2) % (units unknown) (unknown) (unknown) (no date) (unknown) (unknown) Baso % (Auto) 1.1 (0-2) % (units unknown) (unknown) (unknown) (no date) (unknown) (unknown) Blood Pressure 138/63 127/61 (units unknown) (unknown) (unknown) (no date) (unknown) (unknown) Blood Pressure 140/60 05/08/23 15:00 (units unknown) (unknown) (unknown) (no date) (unknown) (unknown) Blood Pressure 140/60 144/95 H (units unknown) (unknown) (unknown) (no date) (unknown) (unknown) Blood Pressure (unit s unknown) (unknown) (unknown) (no date) (unknown) (unknown) Blood glucose has been 3-400 for the past week or so. Recently had change in (units unknown) (unknown) (unknown) (no date) (unknown) (unknown) Calcium (8.4-1 0.2) mg/dL (units unknown) (unknown) (unknown) (no date) (unknown) (unknown) Calcium 9.5 (8.4-10.2) mg/dL (units unknown) (unknown) (unknown) (no date) (unknown) (unknown) Carbon Dioxide (22-32) mmol/L (units unknown) (unknown) (unknown) (no date) (unknown) (unknown) Carbon Dioxide 25 (22-32) mmol/L (units unknown) (unknown) (unknown) (no date) (unknown) (unknown) Chief complain t: Diabetic Problem (units unknown) (unknown) (unknown) (no date) (unknown) (unknown) Chloride (98-1 07) mmol/L (units unknown) (unknown) (unknown) (no date) (unknown) (unknown) Chloride 99 (98-107) mmol/L (units unknown) (unknown) (unknown) (no date) (unknown) (unknown) Complete Blood Count AUTO DIFF Stat (units unknown) (unknown) (unknown) (no date) (unknown) (unknown) Comprehensive Metabolic Panel Stat (units unknown) (unknown) (unknown) (no date) (unknown) (unknown) Course (units unknown) (unknown) (unknown) (no date) (unknown) (unknown) Creatinine (0.52-1.04) mg/dL (units unknown) (unknown) (unknown) (no date) (unknown) (unknown) Creatinine 0.6 6 (0.52-1.04) mg/dL (units unknown) (unknown) (unknown) (no date) (unknown) (unknown) : 9 Acct:[id number] (units unknown) (unknown) (unknown) (no date) (unknown) (unknown) Date of Servic e: 07/20/22 (units unknown) (unknown) (unknown) (no date) (unknown) (unknown) Discontinued Medications (units unknown) (unknown) (unknown) (no date) (unknown) (unknown) Documented By: (u nits unknown) (unknown) (unknown) (no date) (unknown) (unknown) Documented By: AT (u nits unknown) (unknown) (unknown) (no date) (unknown) (unknown) ED Orders (units unknown) (unknown) (unknown) (no date) (unknown) (unknown) ER Physician: Manjit Che D.O. (units unknown) (unknown) (unknown) (no date) (unknown) (unknown) Emergency Report (un its unknown) (unknown) (unknown) (no date) (unknown) (unknown) Eos # (Auto) (0-450) /uL (units unknown) (unknown) (unknown) (no date) (unknown) (unknown) Eos # (Auto) 2 00 (0-450) /uL (units unknown) (unknown) (unknown) (no date) (unknown) (unknown) Eos % (Auto) ( 2-4) % (units unknown) (unknown) (unknown) (no date) (unknown) (unknown) Eos % (Auto) 1 .7 L (2-4) % (units unknown) (unknown) (unknown) (no date) (unknown) (unknown) Estimated GFR > 60 (>60) mL/min (units unknown) (unknown) (unknown) (no date) (unknown) (unknown) Estimated GFR (>60) mL/min (units unknown) (unknown) (unknown) (no date) (unknown) (unknown) Exam (units unknown) (unknown) (unknown) (no date) (unknown) (unknown) General (units unknown) (unknown) (unknown) (no date) (unknown) (unknown) Globulin (1.7- 4.1) g/dL (units unknown) (unknown) (unknown) (no date) (unknown) (unknown) Globulin 3.9 (1.7-4.1) g/dL (units unknown) (unknown) (unknown) (no date) (unknown) (unknown) Glucose (70-10 0) mg/dL (units unknown) (unknown) (unknown) (no date) (unknown) (unknown) Glucose 327 H (70-100) mg/dL (units unknown) (unknown) (unknown) (no date) (unknown) (unknown) Glucose POC 171 (uni ts unknown) (unknown) (unknown) (no date) (unknown) (unknown) HPI - General Adult (units unknown) (unknown) (unknown) (no date) (unknown) (unknown) HPI narrative: (unit s unknown) (unknown) (unknown) (no date) (unknown) (unknown) Hct (36-46) % (units unknown) (unknown) (unknown) (no date) (unknown) (unknown) Hct 45.6 (36-46) % ( units unknown) (unknown) (unknown) (no date) (unknown) (unknown) Hgb (12.0-16.0 ) g/dL (units unknown) (unknown) (unknown) (no date) (unknown) (unknown) Hgb 15.7 (12.0-16.0) g/dL (units unknown) (unknown) (unknown) (no date) (unknown) (unknown) History of Pre sent Illness (units unknown) (unknown) (unknown) (no date) (unknown) (unknown) Ictotest Urine Stat (units unknown) (unknown) (unknown) (no date) (unknown) (unknown) Initial Vital Signs (units unknown) (unknown) (unknown) (no date) (unknown) (unknown) Initial Vital Signs: (units unknown) (unknown) (unknown) (no date) (unknown) (unknown) [facility] [address] [place] [id number] (units unknown) (unknown) (unknown) (no date) (unknown) (unknown) Ketones Cancelled (u nits unknown) (unknown) (unknown) (no date) (unknown) (unknown) Ketones (units unknown) (unknown) (unknown) (no date) (unknown) (unknown) Lab Data (units unknown) (unknown) (unknown) (no date) (unknown) (unknown) Lab Results (units unknown) (unknown) (unknown) (no date) (unknown) (unknown) Labs: (units unknown) (unknown) (unknown) (no date) (unknown) (unknown) Last Admin: 07/20/22 17:25 Dose: 4 mg (units unknown) (unknown) (unknown) (no date) (unknown) (unknown) Last Admin: 07/20/22 17:31 Dose: 975 mg (units unknown) (unknown) (unknown) (no date) (unknown) (unknown) Last Admin: 07/20/22 19:37 Dose: 1,000 mls/hr (units unknown) (unknown) (unknown) (no date) (unknown) (unknown) Lipase (23-300) U/L (units unknown) (unknown) (unknown) (no date) (unknown) (unknown) Lipase 66 (23- 300) U/L (units unknown) (unknown) (unknown) (no date) (unknown) (unknown) Lipase Stat (units unknown) (unknown) (unknown) (no date) (unknown) (unknown) Lymph # (Auto) (1527-2469) /uL (units unknown) (unknown) (unknown) (no date) (unknown) (unknown) Lymph # (Auto) 3100 (7070-7733) /uL (units unknown) (unknown) (unknown) (no date) (unknown) (unknown) Lymph % (Auto) (25-40) % (units unknown) (unknown) (unknown) (no date) (unknown) (unknown) Lymph % (Auto) 29.7 (25-40) % (units unknown) (unknown) (unknown) (no date) (unknown) (unknown) MCH (26-34) PG (unit s unknown) (unknown) (unknown) (no date) (unknown) (unknown) MCH 32.2 (26-34) PG (units unknown) (unknown) (unknown) (no date) (unknown) (unknown) MCHC (30-36) % (unit s unknown) (unknown) (unknown) (no date) (unknown) (unknown) MCHC 34.4 (30-36) % (units unknown) (unknown) (unknown) (no date) (unknown) (unknown) MCV (80-100) fL (uni ts unknown) (unknown) (unknown) (no date) (unknown) (unknown) MCV 93.6 (80-1 00) fL (units unknown) (unknown) (unknown) (no date) (unknown) (unknown) [facility] [place] [facility] (units unknown) (unknown) (unknown) (no date) (unknown) (unknown) Mode of arriva l: Ambulatory (units unknown) (unknown) (unknown) (no date) (unknown) (unknown) [place] # (Auto) (0-900) /uL (units unknown) (unknown) (unknown) (no date) (unknown) (unknown) [place] # (Auto) 700 (0-900) /uL (units unknown) (unknown) (unknown) (no date) (unknown) (unknown) [place] % (Auto) (3-14) % (units unknown) (unknown) (unknown) (no date) (unknown) (unknown) [place] % (Auto) 6.5 (3-14) % (units unknown) (unknown) (unknown) (no date) (unknown) (unknown) Neut # (Auto) (8961-2515) /uL (units unknown) (unknown) (unknown) (no date) (unknown) (unknown) Neut # (Auto) 6300 (3650-5302) /uL (units unknown) (unknown) (unknown) (no date) (unknown) (unknown) Neut % (Auto) (50-75) % (units unknown) (unknown) (unknown) (no date) (unknown) (unknown) Neut % (Auto) 61.0 (50-75) % (units unknown) (unknown) (unknown) (no date) (unknown) (unknown) Ondansetron HC l (Ondansetron 4 Mg Odt) 4 mg PO NOW PRN (units unknown) (unknown) (unknown) (no date) (unknown) (unknown) Ondansetron HC l (Ondansetron 4 Mg/2 Ml Inj) 4 mg IV NOW PRN (units unknown) (unknown) (unknown) (no date) (unknown) (unknown) Ordered: (units unknown) (unknown) (unknown) (no date) (unknown) (unknown) Orders (units unknown) (unknown) (unknown) (no date) (unknown) (unknown) Oxygen Deliver y Method Room Air 07/20/22 15:00 (units unknown) (unknown) (unknown) (no date) (unknown) (unknown) Oxygen Deliver y Method Room Air Room Air (units unknown) (unknown) (unknown) (no date) (unknown) (unknown) Oxygen Deliver y Method (units unknown) (unknown) (unknown) (no date) (unknown) (unknown) PRN Reason: Na usea And Vomiting (units unknown) (unknown) (unknown) (no date) (unknown) (unknown) Patient History (uni ts unknown) (unknown) (unknown) (no date) (unknown) (unknown) Patient: Ning Lerma MR#: M (units unknown) (unknown) (unknown) (no date) (unknown) (unknown) Plt Count (150 -400) X103/uL (units unknown) (unknown) (unknown) (no date) (unknown) (unknown) Plt Count 264 (150-400) X103/uL (units unknown) (unknown) (unknown) (no date) (unknown) (unknown) Point of Care Testing (units unknown) (unknown) (unknown) (no date) (unknown) (unknown) Point of care testing: (units unknown) (unknown) (unknown) (no date) (unknown) (unknown) Potassium (3.4 -5.1) mmol/L (units unknown) (unknown) (unknown) (no date) (unknown) (unknown) Potassium 4.6 (3.4-5.1) mmol/L (units unknown) (unknown) (unknown) (no date) (unknown) (unknown) Test Urine Stat (units unknown) (unknown) (unknown) (no date) (unknown) (unknown) Pulse Oximetry 96 (u nits unknown) (unknown) (unknown) (no date) (unknown) (unknown) Pulse Oximetry 97 07/20/22 15:00 (units unknown) (unknown) (unknown) (no date) (unknown) (unknown) Pulse Oximetry 97 97 93 (units unknown) (unknown) (unknown) (no date) (unknown) (unknown) Pulse Rate 67 07/20/22 15:00 (units unknown) (unknown) (unknown) (no date) (unknown) (unknown) Pulse Rate 67 82 79 (units unknown) (unknown) (unknown) (no date) (unknown) (unknown) Pulse Rate 74 (units unknown) (unknown) (unknown) (no date) (unknown) (unknown) Pulse Rate 76 (units unknown) (unknown) (unknown) (no date) (unknown) (unknown) RBC (4.0-5.2) X106/uL (units unknown) (unknown) (unknown) (no date) (unknown) (unknown) RBC 4.88 (4.0- 5.2) X106/uL (units unknown) (unknown) (unknown) (no date) (unknown) (unknown) RDW (11.6-14.8) % (u nits unknown) (unknown) (unknown) (no date) (unknown) (unknown) RDW 13.9 (11.6-14.8) % (units unknown) (unknown) (unknown) (no date) (unknown) (unknown) Related Data (units unknown) (unknown) (unknown) (no date) (unknown) (unknown) Respiratory Ra te 18 07/20/22 15:00 (units unknown) (unknown) (unknown) (no date) (unknown) (unknown) Respiratory Ra te 18 18 (units unknown) (unknown) (unknown) (no date) (unknown) (unknown) Respiratory Rate 19 (units unknown) (unknown) (unknown) (no date) (unknown) (unknown) Respiratory Rate 20 (units unknown) (unknown) (unknown) (no date) (unknown) (unknown) Signed By: (units unknown) (unknown) (unknown) (no date) (unknown) (unknown) Smoking Status : Current every day smoker (units unknown) (unknown) (unknown) (no date) (unknown) (unknown) Social History (unit s unknown) (unknown) (unknown) (no date) (unknown) (unknown) Sodium (137-14 5) mmol/L (units unknown) (unknown) (unknown) (no date) (unknown) (unknown) Sodium 131 L (137-145) mmol/L (units unknown) (unknown) (unknown) (no date) (unknown) (unknown) Sodium Chlorid e (Normal Saline 0.9%) 1,000 mls @ 1,000 mls/hr IV BOLUS ONE (units unknown) (unknown) (unknown) (no date) (unknown) (unknown) Source: patient (uni ts unknown) (unknown) (unknown) (no date) (unknown) (unknown) Stated complai nt: Possible DKA (units unknown) (unknown) (unknown) (no date) (unknown) (unknown) Stop: 07/20/22 17:30 (units unknown) (unknown) (unknown) (no date) (unknown) (unknown) Stop: 07/20/22 20:32 (units unknown) (unknown) (unknown) (no date) (unknown) (unknown) Substance Use Type: marijuana (units unknown) (unknown) (unknown) (no date) (unknown) (unknown) Sulfa (Sulfona mide Allergy Unknown Verified 07/20/22 15:11 (units unknown) (unknown) (unknown) (no date) (unknown) (unknown) Temperature 97 .9 F 07/20/22 15:00 (units unknown) (unknown) (unknown) (no date) (unknown) (unknown) Temperature 97.9 F ( units unknown) (unknown) (unknown) (no date) (unknown) (unknown) Temperature (units unknown) (unknown) (unknown) (no date) (unknown) (unknown) Time Seen by Provider: 07/20/22 19:43 (units unknown) (unknown) (unknown) (no date) (unknown) (unknown) Total Bilirubi n (0.2-1.3) mg/dL (units unknown) (unknown) (unknown) (no date) (unknown) (unknown) Total Bilirubi n 0.5 (0.2-1.3) mg/dL (units unknown) (unknown) (unknown) (no date) (unknown) (unknown) Total Protein (6.3-8.2) g/dL (units unknown) (unknown) (unknown) (no date) (unknown) (unknown) Total Protein 8.1 (6.3-8.2) g/dL (units unknown) (unknown) (unknown) (no date) (unknown) (unknown) Ur Bilirubin Confirm (Negative) (units unknown) (unknown) (unknown) (no date) (unknown) (unknown) Ur Bilirubin Confirm Negative (Negative) (units unknown) (unknown) (unknown) (no date) (unknown) (unknown) Ur Leukocyte Esterase (NEGATIVE) (units unknown) (unknown) (unknown) (no date) (unknown) (unknown) Ur Leukocyte Esterase Negative (NEGATIVE) (units unknown) (unknown) (unknown) (no date) (unknown) (unknown) Ur Specific Gr avity (1.000-1.035) (units unknown) (unknown) (unknown) (no date) (unknown) (unknown) Ur Specific Gr avity 1.015 (1.000-1.035) (units unknown) (unknown) (unknown) (no date) (unknown) (unknown) Ur Squamous Ep ith Cells (0-5/HPF) (units unknown) (unknown) (unknown) (no date) (unknown) (unknown) Ur Squamous Ep ith Cells 0-1 /hpf (0-5/HPF) (units unknown) (unknown) (unknown) (no date) (unknown) (unknown) Urinalysis Scr een (Dip Only) Stat (units unknown) (unknown) (unknown) (no date) (unknown) (unknown) Urine Appearan ce Clear (units unknown) (unknown) (unknown) (no date) (unknown) (unknown) Urine Appearance (un its unknown) (unknown) (unknown) (no date) (unknown) (unknown) Urine Bacteria (None) (units unknown) (unknown) (unknown) (no date) (unknown) (unknown) Urine Bacteria None seen (None) (units unknown) (unknown) (unknown) (no date) (unknown) (unknown) Urine Bilirubi n (NEGATIVE) (units unknown) (unknown) (unknown) (no date) (unknown) (unknown) Urine Bilirubi n 1+ H (NEGATIVE) (units unknown) (unknown) (unknown) (no date) (unknown) (unknown) Urine Color Yellow ( units unknown) (unknown) (unknown) (no date) (unknown) (unknown) Urine Color (units unknown) (unknown) (unknown) (no date) (unknown) (unknown) Urine Glucose (UA) (Negative) g/dL (units unknown) (unknown) (unknown) (no date) (unknown) (unknown) Urine Glucose (UA) 2+ H (Negative) g/dL (units unknown) (unknown) (unknown) (no date) (unknown) (unknown) Urine Ketones (NEGATIVE) (units unknown) (unknown) (unknown) (no date) (unknown) (unknown) Urine Ketones 2+ H (NEGATIVE) (units unknown) (unknown) (unknown) (no date) (unknown) (unknown) Urine Microsco pic Stat (units unknown) (unknown) (unknown) (no date) (unknown) (unknown) Urine Nitrate (Negative) (units unknown) (unknown) (unknown) (no date) (unknown) (unknown) Urine Nitrate Negative (Negative) (units unknown) (unknown) (unknown) (no date) (unknown) (unknown) Urine Occult B lood (Negative) (units unknown) (unknown) (unknown) (no date) (unknown) (unknown) Urine Occult B lood Trace-intact (Negative) (units unknown) (unknown) (unknown) (no date) (unknown) (unknown) Urine Pregnanc y Test (Negative) (units unknown) (unknown) (unknown) (no date) (unknown) (unknown) Urine Pregnanc y Test Negative (Negative) (units unknown) (unknown) (unknown) (no date) (unknown) (unknown) Urine Protein (Negative) (units unknown) (unknown) (unknown) (no date) (unknown) (unknown) Urine Protein Negative (Negative) (units unknown) (unknown) (unknown) (no date) (unknown) (unknown) Urine RBC (0-5/HPF) (units unknown) (unknown) (unknown) (no date) (unknown) (unknown) Urine RBC 0-1/ hpf (0-5/HPF) (units unknown) (unknown) (unknown) (no date) (unknown) (unknown) Urine Urobilin ogen (0.2) E.U./dL (units unknown) (unknown) (unknown) (no date) (unknown) (unknown) Urine Urobilin ogen 0.2 (0.2) E.U./dL (units unknown) (unknown) (unknown) (no date) (unknown) (unknown) Urine WBC (0-5/HPF) (units unknown) (unknown) (unknown) (no date) (unknown) (unknown) Urine WBC 0-1/ hpf (0-5/HPF) (units unknown) (unknown) (unknown) (no date) (unknown) (unknown) Urine pH (4.5-8.0) ( units unknown) (unknown) (unknown) (no date) (unknown) (unknown) Urine pH 6.0 (4.5-8.0) (units unknown) (unknown) (unknown) (no date) (unknown) (unknown) Vital Signs - 8 hr ( units unknown) (unknown) (unknown) (no date) (unknown) (unknown) Vital Signs (units unknown) (unknown) (unknown) (no date) (unknown) (unknown) Vital signs: (units unknown) (unknown) (unknown) (no date) (unknown) (unknown) WBC (4.5-11.0) X103/uL (units unknown) (unknown) (unknown) (no date) (unknown) (unknown) WBC 10.4 (4.5- 11.0) X103/uL (units unknown) (unknown) (unknown) (no date) (unknown) (unknown) [Embedded Imag e Not Available] (units unknown) (unknown) (unknown) (no date) (unknown) (unknown) alcohol intake frequency: a few times a month (units unknown) (unknown) (unknown) (no date) (unknown) (unknown) cephalexin [Fr om Keflex] Allergy Unknown Verified 07/20/22 15:11 (units unknown) (unknown) (unknown) (no date) (unknown) (unknown) for many month s and has had extensive workups without any significant findings. (units unknown) (unknown) (unknown) (no date) (unknown) (unknown) her medication s from Lantus to glargine and suggest this isn't working quite as (units unknown) (unknown) (unknown) (no date) (unknown) (unknown) possible DKA. She is been having dizziness and lightheadedness with headaches (units unknown) (unknown) (unknown) (no date) (unknown) (unknown) well (units unknown) (unknown) Result panel 120 (unknown) (no date) (unknown) (unknown) (no value) (units unknown) (unknown) (unknown) (no date) (unknown) (unknown) [id number] (units unknown) (unknown) (unknown) (no date) (unknown) (unknown) 07/20/2207/2007/20/22 Range/Units (units unknown) (unknown) (unknown) (no date) (unknown) (unknown) 07/20/22 15:08 (unit s unknown) (unknown) (unknown) (no date) (unknown) (unknown) 07/20/22 15:18 (unit s unknown) (unknown) (unknown) (no date) (unknown) (unknown) 07/20/22 (units unknown) (unknown) (unknown) (no date) (unknown) (unknown) 12 point revie w of systems is negative except for those stated above (units unknown) (unknown) (unknown) (no date) (unknown) (unknown) 15:00 07/20/22 (unit s unknown) (unknown) (unknown) (no date) (unknown) (unknown) 15:08 15:08 15:08 (u nits unknown) (unknown) (unknown) (no date) (unknown) (unknown) 15:18 15:18 15:18 (u nits unknown) (unknown) (unknown) (no date) (unknown) (unknown) 17:25 07/20/22 (unit s unknown) (unknown) (unknown) (no date) (unknown) (unknown) 19:25 (units unknown) (unknown) (unknown) (no date) (unknown) (unknown) 19:26 07/20/22 (unit s unknown) (unknown) (unknown) (no date) (unknown) (unknown) 19:30 (units unknown) (unknown) (unknown) (no date) (unknown) (unknown) 52-year-old fe male nonsmoker with history of diabetes presents with concerns of (units unknown) (unknown) (unknown) (no date) (unknown) (unknown) ALT (<35) IU/L (unit s unknown) (unknown) (unknown) (no date) (unknown) (unknown) ALT 23 (<35) IU/L (u nits unknown) (unknown) (unknown) (no date) (unknown) (unknown) AST (14-36) IU/L (un its unknown) (unknown) (unknown) (no date) (unknown) (unknown) AST 25 (14-36) IU/L (units unknown) (unknown) (unknown) (no date) (unknown) (unknown) Acetaminophen (Acetaminophen 325 Mg Tablet) 975 mg PO NOW ONE (units unknown) (unknown) (unknown) (no date) (unknown) (unknown) Age/Sex: 52 / F (uni ts unknown) (unknown) (unknown) (no date) (unknown) (unknown) Albumin (3.5-5 .0) g/dL (units unknown) (unknown) (unknown) (no date) (unknown) (unknown) Albumin 4.2 (3.5-5.0) g/dL (units unknown) (unknown) (unknown) (no date) (unknown) (unknown) Albumin/Globul in Ratio (1.0-2.8) (units unknown) (unknown) (unknown) (no date) (unknown) (unknown) Albumin/Globul in Ratio 1.1 (1.0-2.8) (units unknown) (unknown) (unknown) (no date) (unknown) (unknown) Alkaline Phosphatase (38-126) U/L (units unknown) (unknown) (unknown) (no date) (unknown) (unknown) Alkaline Phosphatase 112 (38-126) U/L (units unknown) (unknown) (unknown) (no date) (unknown) (unknown) Allergies (units unknown) (unknown) (unknown) (no date) (unknown) (unknown) Allergy/AdvRea c Type Severity Reaction Status Date / Time (units unknown) (unknown) (unknown) (no date) (unknown) (unknown) Antibiotics) (units unknown) (unknown) (unknown) (no date) (unknown) (unknown) BACK: Nontende r without deformity or crepitance. No flank tenderness. (units unknown) (unknown) (unknown) (no date) (unknown) (unknown) BUN (7-17) mg/dL (un its unknown) (unknown) (unknown) (no date) (unknown) (unknown) BUN 17 (7-17) mg/dL (units unknown) (unknown) (unknown) (no date) (unknown) (unknown) BUN/Creatinine Ratio (6-22) (units unknown) (unknown) (unknown) (no date) (unknown) (unknown) BUN/Creatinine Ratio 25.8 H (6-22) (units unknown) (unknown) (unknown) (no date) (unknown) (unknown) Baso # (Auto) (0-100) /uL (units unknown) (unknown) (unknown) (no date) (unknown) (unknown) Baso # (Auto) 100 (0-100) /uL (units unknown) (unknown) (unknown) (no date) (unknown) (unknown) Baso % (Auto) (0-2) % (units unknown) (unknown) (unknown) (no date) (unknown) (unknown) Baso % (Auto) 1.1 (0-2) % (units unknown) (unknown) (unknown) (no date) (unknown) (unknown) Blood Pressure 138/63 127/61 (units unknown) (unknown) (unknown) (no date) (unknown) (unknown) Blood Pressure 140/60 07/20/22 15:00 (units unknown) (unknown) (unknown) (no date) (unknown) (unknown) Blood Pressure 140/60 144/95 H (units unknown) (unknown) (unknown) (no date) (unknown) (unknown) Blood Pressure (unit s unknown) (unknown) (unknown) (no date) (unknown) (unknown) Blood glucose has been 3-400 for the past week or so. Recently had change in (units unknown) (unknown) (unknown) (no date) (unknown) (unknown) CARDIOVASCULAR : Denies chest pain, palpitations, orthopnea, edema, (units unknown) (unknown) (unknown) (no date) (unknown) (unknown) CARDIOVASCULAR : Regular rate and rhythm without murmurs, gallops, or rubs. (units unknown) (unknown) (unknown) (no date) (unknown) (unknown) CC: 52-year-ol d female with elevated blood sugars (units unknown) (unknown) (unknown) (no date) (unknown) (unknown) Calcium (8.4-1 0.2) mg/dL (units unknown) (unknown) (unknown) (no date) (unknown) (unknown) Calcium 9.5 (8.4-10.2) mg/dL (units unknown) (unknown) (unknown) (no date) (unknown) (unknown) Carbon Dioxide (22-32) mmol/L (units unknown) (unknown) (unknown) (no date) (unknown) (unknown) Carbon Dioxide 25 (22-32) mmol/L (units unknown) (unknown) (unknown) (no date) (unknown) (unknown) Chief complain t: Diabetic Problem (units unknown) (unknown) (unknown) (no date) (unknown) (unknown) Chloride (98-1 07) mmol/L (units unknown) (unknown) (unknown) (no date) (unknown) (unknown) Chloride 99 (98-107) mmol/L (units unknown) (unknown) (unknown) (no date) (unknown) (unknown) Complete Blood Count AUTO DIFF Stat (units unknown) (unknown) (unknown) (no date) (unknown) (unknown) Complicating co-morbidities: Diabetic, smoker (units unknown) (unknown) (unknown) (no date) (unknown) (unknown) Comprehensive Metabolic Panel Stat (units unknown) (unknown) (unknown) (no date) (unknown) (unknown) Course (units unknown) (unknown) (unknown) (no date) (unknown) (unknown) Creatinine (0.52-1.04) mg/dL (units unknown) (unknown) (unknown) (no date) (unknown) (unknown) Creatinine 0.6 6 (0.52-1.04) mg/dL (units unknown) (unknown) (unknown) (no date) (unknown) (unknown) : 9 Acct:[id number] (units unknown) (unknown) (unknown) (no date) (unknown) (unknown) Data collected from: Patient (units unknown) (unknown) (unknown) (no date) (unknown) (unknown) Date of Servic e: 07/20/22 (units unknown) (unknown) (unknown) (no date) (unknown) (unknown) Differential considered, but not limited to: Diabetic issue, dehydration, (units unknown) (unknown) (unknown) (no date) (unknown) (unknown) Discontinued Medications (units unknown) (unknown) (unknown) (no date) (unknown) (unknown) Discussion: (units unknown) (unknown) (unknown) (no date) (unknown) (unknown) Disposition: s ee below, along with detailed discharge instructions that have (units unknown) (unknown) (unknown) (no date) (unknown) (unknown) Documented By: (u nits unknown) (unknown) (unknown) (no date) (unknown) (unknown) Documented By: AT (u nits unknown) (unknown) (unknown) (no date) (unknown) (unknown) ECG Data (units unknown) (unknown) (unknown) (no date) (unknown) (unknown) ED Orders (units unknown) (unknown) (unknown) (no date) (unknown) (unknown) ENT: Nose with out bleeding, purulent drainage. Throat without erythema, (units unknown) (unknown) (unknown) (no date) (unknown) (unknown) ER Physician: Manjit Che D.O. (units unknown) (unknown) (unknown) (no date) (unknown) (unknown) EXTREMITIES: N o edema or joint tenderness. (units unknown) (unknown) (unknown) (no date) (unknown) (unknown) EYES: Pupils e qual round and reactive. Extraocular motions intact. No scleral (units unknown) (unknown) (unknown) (no date) (unknown) (unknown) Emergency Report (un its unknown) (unknown) (unknown) (no date) (unknown) (unknown) Eos # (Auto) (0-450) /uL (units unknown) (unknown) (unknown) (no date) (unknown) (unknown) Eos # (Auto) 2 00 (0-450) /uL (units unknown) (unknown) (unknown) (no date) (unknown) (unknown) Eos % (Auto) ( 2-4) % (units unknown) (unknown) (unknown) (no date) (unknown) (unknown) Eos % (Auto) 1 .7 L (2-4) % (units unknown) (unknown) (unknown) (no date) (unknown) (unknown) Estimated GFR > 60 (>60) mL/min (units unknown) (unknown) (unknown) (no date) (unknown) (unknown) Estimated GFR (>60) mL/min (units unknown) (unknown) (unknown) (no date) (unknown) (unknown) Exam Narrative: (uni ts unknown) (unknown) (unknown) (no date) (unknown) (unknown) Exam documente d above, pertinent findings include: No nystagmus, heart rate (units unknown) (unknown) (unknown) (no date) (unknown) (unknown) Exam (units unknown) (unknown) (unknown) (no date) (unknown) (unknown) GASTROINTESTIN AL: Abdomen soft, non-tender, nondistended. (units unknown) (unknown) (unknown) (no date) (unknown) (unknown) GASTROINTESTIN AL: Denies nausea, vomiting, abdominal pain, diarrhea, (units unknown) (unknown) (unknown) (no date) (unknown) (unknown) GENERAL: Denie s chills, fatigue, malaise, fever, sweats. (units unknown) (unknown) (unknown) (no date) (unknown) (unknown) GENERAL: [52] year old patient appears stated age. Well-developed patient, in (units unknown) (unknown) (unknown) (no date) (unknown) (unknown) : Denies dys uria, frequency, incontinence, hematuria, urinary retention. (units unknown) (unknown) (unknown) (no date) (unknown) (unknown) General (units unknown) (unknown) (unknown) (no date) (unknown) (unknown) Globulin (1.7- 4.1) g/dL (units unknown) (unknown) (unknown) (no date) (unknown) (unknown) Globulin 3.9 (1.7-4.1) g/dL (units unknown) (unknown) (unknown) (no date) (unknown) (unknown) Glucose (70-10 0) mg/dL (units unknown) (unknown) (unknown) (no date) (unknown) (unknown) Glucose 327 H (70-100) mg/dL (units unknown) (unknown) (unknown) (no date) (unknown) (unknown) Glucose POC 171 (uni ts unknown) (unknown) (unknown) (no date) (unknown) (unknown) HEAD: Atraumat ic. Normocephalic. (units unknown) (unknown) (unknown) (no date) (unknown) (unknown) HEENT: Denies sinus pain, ear pain, sore throat, difficulty swallowing, (units unknown) (unknown) (unknown) (no date) (unknown) (unknown) HPI - General Adult (units unknown) (unknown) (unknown) (no date) (unknown) (unknown) HPI narrative: (unit s unknown) (unknown) (unknown) (no date) (unknown) (unknown) Hct (36-46) % (units unknown) (unknown) (unknown) (no date) (unknown) (unknown) Hct 45.6 (36-46) % ( units unknown) (unknown) (unknown) (no date) (unknown) (unknown) Hgb (12.0-16.0 ) g/dL (units unknown) (unknown) (unknown) (no date) (unknown) (unknown) Hgb 15.7 (12.0-16.0) g/dL (units unknown) (unknown) (unknown) (no date) (unknown) (unknown) History of Pre sent Illness (units unknown) (unknown) (unknown) (no date) (unknown) (unknown) Ictotest Urine Stat (units unknown) (unknown) (unknown) (no date) (unknown) (unknown) Independently reviewed EKG as above (units unknown) (unknown) (unknown) (no date) (unknown) (unknown) Initial Vital Signs (units unknown) (unknown) (unknown) (no date) (unknown) (unknown) Initial Vital Signs: (units unknown) (unknown) (unknown) (no date) (unknown) (unknown) Interpretation: (uni ts unknown) (unknown) (unknown) (no date) (unknown) (unknown) [address] [address] (units unknown) (unknown) (unknown) (no date) (unknown) (unknown) Ketones Cancelled (u nits unknown) (unknown) (unknown) (no date) (unknown) (unknown) Ketones (units unknown) (unknown) (unknown) (no date) (unknown) (unknown) Lab Data (units unknown) (unknown) (unknown) (no date) (unknown) (unknown) Lab Results (units unknown) (unknown) (unknown) (no date) (unknown) (unknown) Lab Test resul ts independently reviewed as above. Pertinent findings: (units unknown) (unknown) (unknown) (no date) (unknown) (unknown) Labs: (units unknown) (unknown) (unknown) (no date) (unknown) (unknown) Last Admin: 07/20/22 17:25 Dose: 4 mg (units unknown) (unknown) (unknown) (no date) (unknown) (unknown) Last Admin: 07/20/22 17:31 Dose: 975 mg (units unknown) (unknown) (unknown) (no date) (unknown) (unknown) Last Admin: 07/20/22 19:37 Dose: 1,000 mls/hr (units unknown) (unknown) (unknown) (no date) (unknown) (unknown) Lipase (23-300) U/L (units unknown) (unknown) (unknown) (no date) (unknown) (unknown) Lipase 66 (23- 300) U/L (units unknown) (unknown) (unknown) (no date) (unknown) (unknown) Lipase Stat (units unknown) (unknown) (unknown) (no date) (unknown) (unknown) Lymph # (Auto) (3855-6224) /uL (units unknown) (unknown) (unknown) (no date) (unknown) (unknown) Lymph # (Auto) 3100 (3995-2582) /uL (units unknown) (unknown) (unknown) (no date) (unknown) (unknown) Lymph % (Auto) (25-40) % (units unknown) (unknown) (unknown) (no date) (unknown) (unknown) Lymph % (Auto) 29.7 (25-40) % (units unknown) (unknown) (unknown) (no date) (unknown) (unknown) MCH (26-34) PG (unit s unknown) (unknown) (unknown) (no date) (unknown) (unknown) MCH 32.2 (26-34) PG (units unknown) (unknown) (unknown) (no date) (unknown) (unknown) MCHC (30-36) % (unit s unknown) (unknown) (unknown) (no date) (unknown) (unknown) MCHC 34.4 (30-36) % (units unknown) (unknown) (unknown) (no date) (unknown) (unknown) MCV (80-100) fL (uni ts unknown) (unknown) (unknown) (no date) (unknown) (unknown) MCV 93.6 (80-1 00) fL (units unknown) (unknown) (unknown) (no date) (unknown) (unknown) MDM Narrative (units unknown) (unknown) (unknown) (no date) (unknown) (unknown) MUSCULOS[place] L: denies weakness, joint pain, or bony pain (units unknown) (unknown) (unknown) (no date) (unknown) (unknown) Medical Decisi on Making (units unknown) (unknown) (unknown) (no date) (unknown) (unknown) Medical decisi on making narrative: (units unknown) (unknown) (unknown) (no date) (unknown) (unknown) Medical record s reviewed: Prior notes reviewed in our EMR (units unknown) (unknown) (unknown) (no date) (unknown) (unknown) Mode of arriva l: Ambulatory (units unknown) (unknown) (unknown) (no date) (unknown) (unknown) [place] # (Auto) (0-900) /uL (units unknown) (unknown) (unknown) (no date) (unknown) (unknown) [place] # (Auto) 700 (0-900) /uL (units unknown) (unknown) (unknown) (no date) (unknown) (unknown) [place] % (Auto) (3-14) % (units unknown) (unknown) (unknown) (no date) (unknown) (unknown) [place] % (Auto) 6.5 (3-14) % (units unknown) (unknown) (unknown) (no date) (unknown) (unknown) NECK: Trachea midline. Non tender (units unknown) (unknown) (unknown) (no date) (unknown) (unknown) NEURO: AOx3. (units unknown) (unknown) (unknown) (no date) (unknown) (unknown) NEUROLOGIC: De nies weakness, headache, numbness, change in speech, confusion, (units unknown) (unknown) (unknown) (no date) (unknown) (unknown) Narrative (units unknown) (unknown) (unknown) (no date) (unknown) (unknown) Narrative: (units unknown) (unknown) (unknown) (no date) (unknown) (unknown) Neut # (Auto) (2272-6563) /uL (units unknown) (unknown) (unknown) (no date) (unknown) (unknown) Neut # (Auto) 6300 (9390-8668) /uL (units unknown) (unknown) (unknown) (no date) (unknown) (unknown) Neut % (Auto) (50-75) % (units unknown) (unknown) (unknown) (no date) (unknown) (unknown) Neut % (Auto) 61.0 (50-75) % (units unknown) (unknown) (unknown) (no date) (unknown) (unknown) Ondansetron HC l (Ondansetron 4 Mg Odt) 4 mg PO NOW PRN (units unknown) (unknown) (unknown) (no date) (unknown) (unknown) Ondansetron HC l (Ondansetron 4 Mg/2 Ml Inj) 4 mg IV NOW PRN (units unknown) (unknown) (unknown) (no date) (unknown) (unknown) Ordered: (units unknown) (unknown) (unknown) (no date) (unknown) (unknown) Orders (units unknown) (unknown) (unknown) (no date) (unknown) (unknown) Oxygen Deliver y Method Room Air 07/20/22 15:00 (units unknown) (unknown) (unknown) (no date) (unknown) (unknown) Oxygen Deliver y Method Room Air Room Air (units unknown) (unknown) (unknown) (no date) (unknown) (unknown) Oxygen Deliver y Method (units unknown) (unknown) (unknown) (no date) (unknown) (unknown) PRN Reason: Na usea And Vomiting (units unknown) (unknown) (unknown) (no date) (unknown) (unknown) PSYCHIATRIC: N o concerning psychosocial issues. (units unknown) (unknown) (unknown) (no date) (unknown) (unknown) Patient History (uni ts unknown) (unknown) (unknown) (no date) (unknown) (unknown) Patient: Ning Lerma MR#: M (units unknown) (unknown) (unknown) (no date) (unknown) (unknown) Plt Count (150 -400) X103/uL (units unknown) (unknown) (unknown) (no date) (unknown) (unknown) Plt Count 264 (150-400) X103/uL (units unknown) (unknown) (unknown) (no date) (unknown) (unknown) Point of Care Testing (units unknown) (unknown) (unknown) (no date) (unknown) (unknown) Point of care testing: (units unknown) (unknown) (unknown) (no date) (unknown) (unknown) Potassium (3.4 -5.1) mmol/L (units unknown) (unknown) (unknown) (no date) (unknown) (unknown) Potassium 4.6 (3.4-5.1) mmol/L (units unknown) (unknown) (unknown) (no date) (unknown) (unknown) Test Urine Stat (units unknown) (unknown) (unknown) (no date) (unknown) (unknown) Pulse Oximetry 96 (u nits unknown) (unknown) (unknown) (no date) (unknown) (unknown) Pulse Oximetry 97 07/20/22 15:00 (units unknown) (unknown) (unknown) (no date) (unknown) (unknown) Pulse Oximetry 97 97 93 (units unknown) (unknown) (unknown) (no date) (unknown) (unknown) Pulse Rate 67 07/20/22 15:00 (units unknown) (unknown) (unknown) (no date) (unknown) (unknown) Pulse Rate 67 82 79 (units unknown) (unknown) (unknown) (no date) (unknown) (unknown) Pulse Rate 74 (units unknown) (unknown) (unknown) (no date) (unknown) (unknown) Pulse Rate 76 (units unknown) (unknown) (unknown) (no date) (unknown) (unknown) RBC (4.0-5.2) X106/uL (units unknown) (unknown) (unknown) (no date) (unknown) (unknown) RBC 4.88 (4.0- 5.2) X106/uL (units unknown) (unknown) (unknown) (no date) (unknown) (unknown) RDW (11.6-14.8) % (u nits unknown) (unknown) (unknown) (no date) (unknown) (unknown) RDW 13.9 (11.6-14.8) % (units unknown) (unknown) (unknown) (no date) (unknown) (unknown) RESPIRATORY: C lear to auscultation. Breath sounds equal bilaterally. No wheezes, (units unknown) (unknown) (unknown) (no date) (unknown) (unknown) RESPIRATORY: D enies dyspnea, cough, wheezing, hemoptysis, sputum. (units unknown) (unknown) (unknown) (no date) (unknown) (unknown) Re-evaluations: (uni ts unknown) (unknown) (unknown) (no date) (unknown) (unknown) Related Data (units unknown) (unknown) (unknown) (no date) (unknown) (unknown) Respiratory Ra te 18 07/20/22 15:00 (units unknown) (unknown) (unknown) (no date) (unknown) (unknown) Respiratory Ra te 18 18 (units unknown) (unknown) (unknown) (no date) (unknown) (unknown) Respiratory Rate 19 (units unknown) (unknown) (unknown) (no date) (unknown) (unknown) Respiratory Rate 20 (units unknown) (unknown) (unknown) (no date) (unknown) (unknown) Review of Systems (u nits unknown) (unknown) (unknown) (no date) (unknown) (unknown) SKIN: Denies r edilberto, skin lesions, or other (units unknown) (unknown) (unknown) (no date) (unknown) (unknown) SKIN: No rash or erythema of visible areas (units unknown) (unknown) (unknown) (no date) (unknown) (unknown) Signed By: (units unknown) (unknown) (unknown) (no date) (unknown) (unknown) Smoking Status : Current every day smoker (units unknown) (unknown) (unknown) (no date) (unknown) (unknown) Social History (units unknown) (unknown) (unknown) (no date) (unknown) (unknown) Sodium (137-14 5) mmol/L (units unknown) (unknown) (unknown) (no date) (unknown) (unknown) Sodium 131 L (137-145) mmol/L (units unknown) (unknown) (unknown) (no date) (unknown) (unknown) Sodium Chlorid e (Normal Saline 0.9%) 1,000 mls @ 1,000 mls/hr IV BOLUS ONE (units unknown) (unknown) (unknown) (no date) (unknown) (unknown) Source: patient (uni ts unknown) (unknown) (unknown) (no date) (unknown) (unknown) Stated complai nt: Possible DKA (units unknown) (unknown) (unknown) (no date) (unknown) (unknown) Stop: 07/20/22 17:30 (units unknown) (unknown) (unknown) (no date) (unknown) (unknown) Stop: 07/20/22 20:32 (units unknown) (unknown) (unknown) (no date) (unknown) (unknown) Substance Use Type: marijuana (units unknown) (unknown) (unknown) (no date) (unknown) (unknown) Sulfa (Sulfona mide Allergy Unknown Verified 07/20/22 15:11 (units unknown) (unknown) (unknown) (no date) (unknown) (unknown) Temperature 97 .9 F 07/20/22 15:00 (units unknown) (unknown) (unknown) (no date) (unknown) (unknown) Temperature 97.9 F ( units unknown) (unknown) (unknown) (no date) (unknown) (unknown) Temperature (units unknown) (unknown) (unknown) (no date) (unknown) (unknown) Time Seen by Provider: 07/20/22 19:43 (units unknown) (unknown) (unknown) (no date) (unknown) (unknown) Total Bilirubi n (0.2-1.3) mg/dL (units unknown) (unknown) (unknown) (no date) (unknown) (unknown) Total Bilirubi n 0.5 (0.2-1.3) mg/dL (units unknown) (unknown) (unknown) (no date) (unknown) (unknown) Total Protein (6.3-8.2) g/dL (units unknown) (unknown) (unknown) (no date) (unknown) (unknown) Total Protein 8.1 (6.3-8.2) g/dL (units unknown) (unknown) (unknown) (no date) (unknown) (unknown) Treatments:Saline (u nits unknown) (unknown) (unknown) (no date) (unknown) (unknown) Ur Bilirubin Confirm (Negative) (units unknown) (unknown) (unknown) (no date) (unknown) (unknown) Ur Bilirubin Confirm Negative (Negative) (units unknown) (unknown) (unknown) (no date) (unknown) (unknown) Ur Leukocyte Esterase (NEGATIVE) (units unknown) (unknown) (unknown) (no date) (unknown) (unknown) Ur Leukocyte Esterase Negative (NEGATIVE) (units unknown) (unknown) (unknown) (no date) (unknown) (unknown) Ur Specific Gr avity (1.000-1.035) (units unknown) (unknown) (unknown) (no date) (unknown) (unknown) Ur Specific Gr avity 1.015 (1.000-1.035) (units unknown) (unknown) (unknown) (no date) (unknown) (unknown) Ur Squamous Ep ith Cells (0-5/HPF) (units unknown) (unknown) (unknown) (no date) (unknown) (unknown) Ur Squamous Ep ith Cells 0-1 /hpf (0-5/HPF) (units unknown) (unknown) (unknown) (no date) (unknown) (unknown) Urinalysis Scr een (Dip Only) Stat (units unknown) (unknown) (unknown) (no date) (unknown) (unknown) Urine Appearan ce Clear (units unknown) (unknown) (unknown) (no date) (unknown) (unknown) Urine Appearance (un its unknown) (unknown) (unknown) (no date) (unknown) (unknown) Urine Bacteria (None) (units unknown) (unknown) (unknown) (no date) (unknown) (unknown) Urine Bacteria None seen (None) (units unknown) (unknown) (unknown) (no date) (unknown) (unknown) Urine Bilirubi n (NEGATIVE) (units unknown) (unknown) (unknown) (no date) (unknown) (unknown) Urine Bilirubi n 1+ H (NEGATIVE) (units unknown) (unknown) (unknown) (no date) (unknown) (unknown) Urine Color Yellow ( units unknown) (unknown) (unknown) (no date) (unknown) (unknown) Urine Color (units unknown) (unknown) (unknown) (no date) (unknown) (unknown) Urine Glucose (UA) (Negative) g/dL (units unknown) (unknown) (unknown) (no date) (unknown) (unknown) Urine Glucose (UA) 2+ H (Negative) g/dL (units unknown) (unknown) (unknown) (no date) (unknown) (unknown) Urine Ketones (NEGATIVE) (units unknown) (unknown) (unknown) (no date) (unknown) (unknown) Urine Ketones 2+ H (NEGATIVE) (units unknown) (unknown) (unknown) (no date) (unknown) (unknown) Urine Microsco pic Stat (units unknown) (unknown) (unknown) (no date) (unknown) (unknown) Urine Nitrate (Negative) (units unknown) (unknown) (unknown) (no date) (unknown) (unknown) Urine Nitrate Negative (Negative) (units unknown) (unknown) (unknown) (no date) (unknown) (unknown) Urine Occult B lood (Negative) (units unknown) (unknown) (unknown) (no date) (unknown) (unknown) Urine Occult B lood Trace-intact (Negative) (units unknown) (unknown) (unknown) (no date) (unknown) (unknown) Urine Pregnanc y Test (Negative) (units unknown) (unknown) (unknown) (no date) (unknown) (unknown) Urine Pregnanc y Test Negative (Negative) (units unknown) (unknown) (unknown) (no date) (unknown) (unknown) Urine Protein (Negative) (units unknown) (unknown) (unknown) (no date) (unknown) (unknown) Urine Protein Negative (Negative) (units unknown) (unknown) (unknown) (no date) (unknown) (unknown) Urine RBC (0-5/HPF) (units unknown) (unknown) (unknown) (no date) (unknown) (unknown) Urine RBC 0-1/ hpf (0-5/HPF) (units unknown) (unknown) (unknown) (no date) (unknown) (unknown) Urine Urobilin ogen (0.2) E.U./dL (units unknown) (unknown) (unknown) (no date) (unknown) (unknown) Urine Urobilin ogen 0.2 (0.2) E.U./dL (units unknown) (unknown) (unknown) (no date) (unknown) (unknown) Urine WBC (0-5/HPF) (units unknown) (unknown) (unknown) (no date) (unknown) (unknown) Urine WBC 0-1/ hpf (0-5/HPF) (units unknown) (unknown) (unknown) (no date) (unknown) (unknown) Urine pH (4.5-8.0) ( units unknown) (unknown) (unknown) (no date) (unknown) (unknown) Urine pH 6.0 (4.5-8.0) (units unknown) (unknown) (unknown) (no date) (unknown) (unknown) Vital Signs - 8 hr ( units unknown) (unknown) (unknown) (no date) (unknown) (unknown) Vital Signs (units unknown) (unknown) (unknown) (no date) (unknown) (unknown) Vital signs: (units unknown) (unknown) (unknown) (no date) (unknown) (unknown) WBC (4.5-11.0) X103/uL (units unknown) (unknown) (unknown) (no date) (unknown) (unknown) WBC 10.4 (4.5- 11.0) X103/uL (units unknown) (unknown) (unknown) (no date) (unknown) (unknown) [Embedded Imag e Not Available] (units unknown) (unknown) (unknown) (no date) (unknown) (unknown) [[id number]] EKG is normal sinus rhythm rate [ 74] and free of any signs of ischemia (units unknown) (unknown) (unknown) (no date) (unknown) (unknown) additional outpatient follow up (units unknown) (unknown) (unknown) (no date) (unknown) (unknown) alcohol intake frequency: a few times a month (units unknown) (unknown) (unknown) (no date) (unknown) (unknown) been reviewed with patient as well as indications for ED re-evaluation and (units unknown) (unknown) (unknown) (no date) (unknown) (unknown) cardiac versus other (units unknown) (unknown) (unknown) (no date) (unknown) (unknown) cephalexin [Fr om Keflex] Allergy Unknown Verified 07/20/22 15:11 (units unknown) (unknown) (unknown) (no date) (unknown) (unknown) constipation, melena. (units unknown) (unknown) (unknown) (no date) (unknown) (unknown) dizziness. (units unknown) (unknown) (unknown) (no date) (unknown) (unknown) fever or chill s. She is had no urinary complaints denies any diarrhea. (units unknown) (unknown) (unknown) (no date) (unknown) (unknown) for many month s and has had extensive workups without any significant findings. (units unknown) (unknown) (unknown) (no date) (unknown) (unknown) her medication s from Lantus to glargine and suggest this isn't working quite as (units unknown) (unknown) (unknown) (no date) (unknown) (unknown) icterus. No injection or drainage. (units unknown) (unknown) (unknown) (no date) (unknown) (unknown) mild distress. (unit s unknown) (unknown) (unknown) (no date) (unknown) (unknown) or ectopy. No ST segmental elevation or depression. No T wave inversions (units unknown) (unknown) (unknown) (no date) (unknown) (unknown) possible DKA. She is been having dizziness and lightheadedness with headaches (units unknown) (unknown) (unknown) (no date) (unknown) (unknown) rales, or rhonchi. ( units unknown) (unknown) (unknown) (no date) (unknown) (unknown) regular, lungs clear. Abdomen soft (units unknown) (unknown) (unknown) (no date) (unknown) (unknown) seizures, incoordination. (units unknown) (unknown) (unknown) (no date) (unknown) (unknown) tonsillar hypertrophy or exudate. Airway patent. (units unknown) (unknown) (unknown) (no date) (unknown) (unknown) well. She [place] runny nose, sore throat, chest pain or cough. She denies any (units unknown) (unknown) Result panel 121 (unknown) (no date) (unknown) (unknown) 10 % (unknown ) (unknown) (no date) (unknown) (unknown) 12 mmhg (unknown ) (unknown) (no date) (unknown) (unknown) 21 (units unknown) (unknown) (unknown) (no date) (unknown) (unknown) 32 mmol/l (unknown ) (unknown) (no date) (unknown) (unknown) 34 mmol/l (unknown ) (unknown) (no date) (unknown) (unknown) 6.0 mmol/l (unknown ) (unknown) (no date) (unknown) (unknown) 65.2 mmhg (unknown ) (unknown) (no date) (unknown) (unknown) 7.30 (units unknown) (unknown) (unknown) (no date) (unknown) (unknown) 7.30 (units unknown) (unknown) Result panel 122 (unknown) (no date) (unknown) (unknown) < 0.012 ng/ml (unknown ) (unknown) (no date) (unknown) (unknown) < 0.012 ng/ml (unknown ) (unknown) (no date) (unknown) (unknown) 73 u/l (unknown ) (unknown) (no date) (unknown) (unknown) Test not performed % (unknown) (unknown) (no date) (unknown) (unknown) Test not performed % (unknown) (unknown) (no date) (unknown) (unknown) Test not performed ng/ml (unknown) (unknown) (no date) (unknown) (unknown) Test not performed ng/ml (unknown) Result panel 123 (unknown) (no date) (unknown) (unknown) (no value) (units unknown) (unknown) (unknown) (no date) (unknown) (unknown) <Electronicall y signed by Manjit Che D.O.> (units unknown) (unknown) (unknown) (no date) (unknown) (unknown) *If you do not have a primary care provider please contact the [facility] (units unknown) (unknown) (unknown) (no date) (unknown) (unknown) *Please contin ue to take your regular medications as directed. (units unknown) (unknown) (unknown) (no date) (unknown) (unknown) *Please follow up with your primary care provider in 2-3 days, call for an (units unknown) (unknown) (unknown) (no date) (unknown) (unknown) *Return to Emergency Department if you should have any new, worsening or (units unknown) (unknown) (unknown) (no date) (unknown) (unknown) *What to do: (units unknown) (unknown) (unknown) (no date) (unknown) (unknown) *You have been diagnosed with [hyperglycemia which thankfully is greatly (units unknown) (unknown) (unknown) (no date) (unknown) (unknown) [id number] (units unknown) (unknown) (unknown) (no date) (unknown) (unknown) 07/20/2207/2007/20/22 Range/Units (units unknown) (unknown) (unknown) (no date) (unknown) (unknown) 07/20/2207/20 Range/Units (units unknown) (unknown) (unknown) (no date) (unknown) (unknown) 07/20/22 15:08 (unit s unknown) (unknown) (unknown) (no date) (unknown) (unknown) 07/20/22 21:02 (unit s unknown) (unknown) (unknown) (no date) (unknown) (unknown) 07/20/22 21:04 (unit s unknown) (unknown) (unknown) (no date) (unknown) (unknown) 07/20/22 (units unknown) (unknown) (unknown) (no date) (unknown) (unknown) 07/21/22 0332 (units unknown) (unknown) (unknown) (no date) (unknown) (unknown) 12 point revie w of systems is negative except for those stated above (units unknown) (unknown) (unknown) (no date) (unknown) (unknown) 15:08 15:08 15:08 (u nits unknown) (unknown) (unknown) (no date) (unknown) (unknown) 15:18 15:18 15:18 (u nits unknown) (unknown) (unknown) (no date) (unknown) (unknown) 19:30 07/20/22 (unit s unknown) (unknown) (unknown) (no date) (unknown) (unknown) 20:00 07/20/22 (unit s unknown) (unknown) (unknown) (no date) (unknown) (unknown) 20:00 (units unknown) (unknown) (unknown) (no date) (unknown) (unknown) 20:30 07/20/22 (unit s unknown) (unknown) (unknown) (no date) (unknown) (unknown) 20:30 (units unknown) (unknown) (unknown) (no date) (unknown) (unknown) 21:02 21:04 (units unknown) (unknown) (unknown) (no date) (unknown) (unknown) 21:03 07/20/22 (unit s unknown) (unknown) (unknown) (no date) (unknown) (unknown) 21:30 07/20/22 (unit s unknown) (unknown) (unknown) (no date) (unknown) (unknown) 21:30 (units unknown) (unknown) (unknown) (no date) (unknown) (unknown) 22:00 (units unknown) (unknown) (unknown) (no date) (unknown) (unknown) 52-year-old fe male nonsmoker with history of diabetes presents with concerns of (units unknown) (unknown) (unknown) (no date) (unknown) (unknown) ALT (<35) IU/L (unit s unknown) (unknown) (unknown) (no date) (unknown) (unknown) ALT 23 (<35) IU/L (u nits unknown) (unknown) (unknown) (no date) (unknown) (unknown) AST (14-36) IU/L (un its unknown) (unknown) (unknown) (no date) (unknown) (unknown) AST 25 (14-36) IU/L (units unknown) (unknown) (unknown) (no date) (unknown) (unknown) Acetaminophen (Acetaminophen 325 Mg Tablet) 975 mg PO NOW ONE (units unknown) (unknown) (unknown) (no date) (unknown) (unknown) Activity Restrictions/Additi onal Instructions: (units unknown) (unknown) (unknown) (no date) (unknown) (unknown) Admin: 3 19:37 Dose: 1,000 mls/hr (units unknown) (unknown) (unknown) (no date) (unknown) (unknown) Admin: 3 21:11 Dose: 1,000 mls/hr (units unknown) (unknown) (unknown) (no date) (unknown) (unknown) Age/Sex: 52 / F (uni ts unknown) (unknown) (unknown) (no date) (unknown) (unknown) Albumin (3.5-5 .0) g/dL (units unknown) (unknown) (unknown) (no date) (unknown) (unknown) Albumin 4.2 (3.5-5.0) g/dL (units unknown) (unknown) (unknown) (no date) (unknown) (unknown) Albumin/Globul in Ratio (1.0-2.8) (units unknown) (unknown) (unknown) (no date) (unknown) (unknown) Albumin/Globul in Ratio 1.1 (1.0-2.8) (units unknown) (unknown) (unknown) (no date) (unknown) (unknown) Alkaline Phosphatase (38-126) U/L (units unknown) (unknown) (unknown) (no date) (unknown) (unknown) Alkaline Phosphatase 112 (38-126) U/L (units unknown) (unknown) (unknown) (no date) (unknown) (unknown) Allergies (units unknown) (unknown) (unknown) (no date) (unknown) (unknown) Allergy/AdvRea c Type Severity Reaction Status Date / Time (units unknown) (unknown) (unknown) (no date) (unknown) (unknown) Antibiotics) (units unknown) (unknown) (unknown) (no date) (unknown) (unknown) BACK: Nontende r without deformity or crepitance. No flank tenderness. (units unknown) (unknown) (unknown) (no date) (unknown) (unknown) BUN (7-17) mg/dL (un its unknown) (unknown) (unknown) (no date) (unknown) (unknown) BUN 17 (7-17) mg/dL (units unknown) (unknown) (unknown) (no date) (unknown) (unknown) BUN/Creatinine Ratio (6-22) (units unknown) (unknown) (unknown) (no date) (unknown) (unknown) BUN/Creatinine Ratio 25.8 H (6-22) (units unknown) (unknown) (unknown) (no date) (unknown) (unknown) Baso # (Auto) (0-100) /uL (units unknown) (unknown) (unknown) (no date) (unknown) (unknown) Baso # (Auto) 100 (0-100) /uL (units unknown) (unknown) (unknown) (no date) (unknown) (unknown) Baso % (Auto) (0-2) % (units unknown) (unknown) (unknown) (no date) (unknown) (unknown) Baso % (Auto) 1.1 (0-2) % (units unknown) (unknown) (unknown) (no date) (unknown) (unknown) Blood Pressure 127/61 114/63 (units unknown) (unknown) (unknown) (no date) (unknown) (unknown) Blood Pressure 128/59 L (units unknown) (unknown) (unknown) (no date) (unknown) (unknown) Blood Pressure 139/66 (units unknown) (unknown) (unknown) (no date) (unknown) (unknown) Blood Pressure 140/60 07/20/22 15:00 (units unknown) (unknown) (unknown) (no date) (unknown) (unknown) Blood glucose has been 3-400 for the past week or so. Recently had change in (units unknown) (unknown) (unknown) (no date) (unknown) (unknown) CARDIOVASCULAR : Denies chest pain, palpitations, orthopnea, edema, (units unknown) (unknown) (unknown) (no date) (unknown) (unknown) CARDIOVASCULAR : Regular rate and rhythm without murmurs, gallops, or rubs. (units unknown) (unknown) (unknown) (no date) (unknown) (unknown) CC: 52-year-ol d female with elevated blood sugars (units unknown) (unknown) (unknown) (no date) (unknown) (unknown) CK-MB (CK-2) R el Index TNP (units unknown) (unknown) (unknown) (no date) (unknown) (unknown) CK-MB (CK-2) R el Index (units unknown) (unknown) (unknown) (no date) (unknown) (unknown) CK-MB (CK-2) TNP (un its unknown) (unknown) (unknown) (no date) (unknown) (unknown) CK-MB (CK-2) (units unknown) (unknown) (unknown) (no date) (unknown) (unknown) Calcium (8.4-1 0.2) mg/dL (units unknown) (unknown) (unknown) (no date) (unknown) (unknown) Calcium 9.5 (8.4-10.2) mg/dL (units unknown) (unknown) (unknown) (no date) (unknown) (unknown) Carbon Dioxide (22-32) mmol/L (units unknown) (unknown) (unknown) (no date) (unknown) (unknown) Carbon Dioxide 25 (22-32) mmol/L (units unknown) (unknown) (unknown) (no date) (unknown) (unknown) Chief complain t: Diabetic Problem (units unknown) (unknown) (unknown) (no date) (unknown) (unknown) Chloride (98-1 07) mmol/L (units unknown) (unknown) (unknown) (no date) (unknown) (unknown) Chloride 99 (98-107) mmol/L (units unknown) (unknown) (unknown) (no date) (unknown) (unknown) Clinical Impression: (units unknown) (unknown) (unknown) (no date) (unknown) (unknown) Complicating co-morbidities: Diabetic, smoker (units unknown) (unknown) (unknown) (no date) (unknown) (unknown) Course (units unknown) (unknown) (unknown) (no date) (unknown) (unknown) Creatinine (0.52-1.04) mg/dL (units unknown) (unknown) (unknown) (no date) (unknown) (unknown) Creatinine 0.6 6 (0.52-1.04) mg/dL (units unknown) (unknown) (unknown) (no date) (unknown) (unknown) : 9 Acct:[id number] (units unknown) (unknown) (unknown) (no date) (unknown) (unknown) Data collected from: Patient (units unknown) (unknown) (unknown) (no date) (unknown) (unknown) Date of Servic e: 07/20/22 (units unknown) (unknown) (unknown) (no date) (unknown) (unknown) Departure (units unknown) (unknown) (unknown) (no date) (unknown) (unknown) Diabetes mellitus (u nits unknown) (unknown) (unknown) (no date) (unknown) (unknown) Differential considered, but not limited to: Diabetic issue, dehydration, (units unknown) (unknown) (unknown) (no date) (unknown) (unknown) Discharge Plan (unit s unknown) (unknown) (unknown) (no date) (unknown) (unknown) Discontinued Medications (units unknown) (unknown) (unknown) (no date) (unknown) (unknown) Discussion: Calin fuentes is sent for evaluation of elevated blood sugars and vague (units unknown) (unknown) (unknown) (no date) (unknown) (unknown) Disposition: s ee below, along with detailed discharge instructions that have (units unknown) (unknown) (unknown) (no date) (unknown) (unknown) Documented By: (u nits unknown) (unknown) (unknown) (no date) (unknown) (unknown) Documented By: AT (u nits unknown) (unknown) (unknown) (no date) (unknown) (unknown) Documented By: SB (u nits unknown) (unknown) (unknown) (no date) (unknown) (unknown) ECG Data (units unknown) (unknown) (unknown) (no date) (unknown) (unknown) ED Orders (units unknown) (unknown) (unknown) (no date) (unknown) (unknown) ENT: Nose with out bleeding, purulent drainage. Throat without erythema, (units unknown) (unknown) (unknown) (no date) (unknown) (unknown) ER Physician: Manjit Che D.O. (units unknown) (unknown) (unknown) (no date) (unknown) (unknown) EXTREMITIES: N o edema or joint tenderness. (units unknown) (unknown) (unknown) (no date) (unknown) (unknown) EYES: Pupils e qual round and reactive. Extraocular motions intact. No scleral (units unknown) (unknown) (unknown) (no date) (unknown) (unknown) Emergency Report (un its unknown) (unknown) (unknown) (no date) (unknown) (unknown) Eos # (Auto) (0-450) /uL (units unknown) (unknown) (unknown) (no date) (unknown) (unknown) Eos # (Auto) 2 00 (0-450) /uL (units unknown) (unknown) (unknown) (no date) (unknown) (unknown) Eos % (Auto) ( 2-4) % (units unknown) (unknown) (unknown) (no date) (unknown) (unknown) Eos % (Auto) 1 .7 L (2-4) % (units unknown) (unknown) (unknown) (no date) (unknown) (unknown) Estimated GFR > 60 (>60) mL/min (units unknown) (unknown) (unknown) (no date) (unknown) (unknown) Estimated GFR (>60) mL/min (units unknown) (unknown) (unknown) (no date) (unknown) (unknown) Exam Narrative: (uni ts unknown) (unknown) (unknown) (no date) (unknown) (unknown) Exam documente d above, pertinent findings include: No nystagmus, heart rate (units unknown) (unknown) (unknown) (no date) (unknown) (unknown) Exam (units unknown) (unknown) (unknown) (no date) (unknown) (unknown) FiO2 21 (units unknown) (unknown) (unknown) (no date) (unknown) (unknown) FiO2 (units unknown) (unknown) (unknown) (no date) (unknown) (unknown) GASTROINTESTIN AL: Abdomen soft, non-tender, nondistended. (units unknown) (unknown) (unknown) (no date) (unknown) (unknown) GASTROINTESTIN AL: Denies nausea, vomiting, abdominal pain, diarrhea, (units unknown) (unknown) (unknown) (no date) (unknown) (unknown) GENERAL: Denie s chills, fatigue, malaise, fever, sweats. (units unknown) (unknown) (unknown) (no date) (unknown) (unknown) GENERAL: [52] year old patient appears stated age. Well-developed patient, in (units unknown) (unknown) (unknown) (no date) (unknown) (unknown) : Denies dys uria, frequency, incontinence, hematuria, urinary retention. (units unknown) (unknown) (unknown) (no date) (unknown) (unknown) General (units unknown) (unknown) (unknown) (no date) (unknown) (unknown) Globulin (1.7- 4.1) g/dL (units unknown) (unknown) (unknown) (no date) (unknown) (unknown) Globulin 3.9 (1.7-4.1) g/dL (units unknown) (unknown) (unknown) (no date) (unknown) (unknown) Glucose (70-10 0) mg/dL (units unknown) (unknown) (unknown) (no date) (unknown) (unknown) Glucose 327 H (70-100) mg/dL (units unknown) (unknown) (unknown) (no date) (unknown) (unknown) Glucose POC 171 (uni ts unknown) (unknown) (unknown) (no date) (unknown) (unknown) HEAD: Atraumat ic. Normocephalic. (units unknown) (unknown) (unknown) (no date) (unknown) (unknown) HEENT: Denies sinus pain, ear pain, sore throat, difficulty swallowing, (units unknown) (unknown) (unknown) (no date) (unknown) (unknown) HPI - General Adult (units unknown) (unknown) (unknown) (no date) (unknown) (unknown) HPI narrative: (unit s unknown) (unknown) (unknown) (no date) (unknown) (unknown) Hct (36-46) % (units unknown) (unknown) (unknown) (no date) (unknown) (unknown) Hct 45.6 (36-46) % ( units unknown) (unknown) (unknown) (no date) (unknown) (unknown) Hgb (12.0-16.0 ) g/dL (units unknown) (unknown) (unknown) (no date) (unknown) (unknown) Hgb 15.7 (12.0-16.0) g/dL (units unknown) (unknown) (unknown) (no date) (unknown) (unknown) History of Pre sent Illness (units unknown) (unknown) (unknown) (no date) (unknown) (unknown) Ibuprofen (Ibuprofen 400 Mg Tablet) 600 mg PO NOW ONE (units unknown) (unknown) (unknown) (no date) (unknown) (unknown) Independently reviewed EKG as above (units unknown) (unknown) (unknown) (no date) (unknown) (unknown) Initial Vital Signs (units unknown) (unknown) (unknown) (no date) (unknown) (unknown) Initial Vital Signs: (units unknown) (unknown) (unknown) (no date) (unknown) (unknown) Instructions: DI for Hyperglycemia -- Adult (units unknown) (unknown) (unknown) (no date) (unknown) (unknown) Interpretation: (uni ts unknown) (unknown) (unknown) (no date) (unknown) (unknown) [address] [address] (units unknown) (unknown) (unknown) (no date) (unknown) (unknown) Ketones Cancelled (u nits unknown) (unknown) (unknown) (no date) (unknown) (unknown) Ketones (units unknown) (unknown) (unknown) (no date) (unknown) (unknown) Lab Data (units unknown) (unknown) (unknown) (no date) (unknown) (unknown) Lab Results (units unknown) (unknown) (unknown) (no date) (unknown) (unknown) Lab Test resul ts independently reviewed as above. Pertinent findings: (units unknown) (unknown) (unknown) (no date) (unknown) (unknown) Labs: (units unknown) (unknown) (unknown) (no date) (unknown) (unknown) Lactated Ringe r's (Lactated Ringers) 1,000 mls @ 1,000 mls/hr IV BOLUS ONE (units unknown) (unknown) (unknown) (no date) (unknown) (unknown) Last Admin: 07/20/22 17:25 Dose: 4 mg (units unknown) (unknown) (unknown) (no date) (unknown) (unknown) Last Admin: 07/20/22 17:31 Dose: 975 mg (units unknown) (unknown) (unknown) (no date) (unknown) (unknown) Last Admin: 07/20/22 21:53 Dose: 600 mg (units unknown) (unknown) (unknown) (no date) (unknown) (unknown) Last Infusion: 07/20/22 20:59 Dose: 0 mls/hr (units unknown) (unknown) (unknown) (no date) (unknown) (unknown) Last Infusion: 07/20/22 21:59 Dose: 0 mls/hr (units unknown) (unknown) (unknown) (no date) (unknown) (unknown) Lipase (23-300) U/L (units unknown) (unknown) (unknown) (no date) (unknown) (unknown) Lipase 66 (23- 300) U/L (units unknown) (unknown) (unknown) (no date) (unknown) (unknown) Lymph # (Auto) (8572-8077) /uL (units unknown) (unknown) (unknown) (no date) (unknown) (unknown) Lymph # (Auto) 3100 (8884-2652) /uL (units unknown) (unknown) (unknown) (no date) (unknown) (unknown) Lymph % (Auto) (25-40) % (units unknown) (unknown) (unknown) (no date) (unknown) (unknown) Lymph % (Auto) 29.7 (25-40) % (units unknown) (unknown) (unknown) (no date) (unknown) (unknown) MCH (26-34) PG (unit s unknown) (unknown) (unknown) (no date) (unknown) (unknown) MCH 32.2 (26-34) PG (units unknown) (unknown) (unknown) (no date) (unknown) (unknown) MCHC (30-36) % (unit s unknown) (unknown) (unknown) (no date) (unknown) (unknown) MCHC 34.4 (30-36) % (units unknown) (unknown) (unknown) (no date) (unknown) (unknown) MCV (80-100) fL (uni ts unknown) (unknown) (unknown) (no date) (unknown) (unknown) MCV 93.6 (80-1 00) fL (units unknown) (unknown) (unknown) (no date) (unknown) (unknown) MDM Narrative (units unknown) (unknown) (unknown) (no date) (unknown) (unknown) MUSCULOSKELETA L: denies weakness, joint pain, or bony pain (units unknown) (unknown) (unknown) (no date) (unknown) (unknown) Medical Decisi on Making (units unknown) (unknown) (unknown) (no date) (unknown) (unknown) Medical decisi on making narrative: (units unknown) (unknown) (unknown) (no date) (unknown) (unknown) Medical record s reviewed: Prior notes reviewed in our EMR (units unknown) (unknown) (unknown) (no date) (unknown) (unknown) Mode of arriva l: Ambulatory (units unknown) (unknown) (unknown) (no date) (unknown) (unknown) [place] # (Auto) (0-900) /uL (units unknown) (unknown) (unknown) (no date) (unknown) (unknown) [place] # (Auto) 700 (0-900) /uL (units unknown) (unknown) (unknown) (no date) (unknown) (unknown) [place] % (Auto) (3-14) % (units unknown) (unknown) (unknown) (no date) (unknown) (unknown) [place] % (Auto) 6.5 (3-14) % (units unknown) (unknown) (unknown) (no date) (unknown) (unknown) NECK: Trachea midline. Non tender (units unknown) (unknown) (unknown) (no date) (unknown) (unknown) NEURO: AOx3. (units unknown) (unknown) (unknown) (no date) (unknown) (unknown) NEUROLOGIC: De nies weakness, headache, numbness, change in speech, confusion, (units unknown) (unknown) (unknown) (no date) (unknown) (unknown) Narrative (units unknown) (unknown) (unknown) (no date) (unknown) (unknown) Narrative: (units unknown) (unknown) (unknown) (no date) (unknown) (unknown) Neut # (Auto) (9303-1268) /uL (units unknown) (unknown) (unknown) (no date) (unknown) (unknown) Neut # (Auto) 6300 (6662-1318) /uL (units unknown) (unknown) (unknown) (no date) (unknown) (unknown) Neut % (Auto) (50-75) % (units unknown) (unknown) (unknown) (no date) (unknown) (unknown) Neut % (Auto) 61.0 (50-75) % (units unknown) (unknown) (unknown) (no date) (unknown) (unknown) Ondansetron HC l (Ondansetron 4 Mg Odt) 4 mg PO NOW PRN (units unknown) (unknown) (unknown) (no date) (unknown) (unknown) Ondansetron HC l (Ondansetron 4 Mg/2 Ml Inj) 4 mg IV NOW PRN (units unknown) (unknown) (unknown) (no date) (unknown) (unknown) Ordered: (units unknown) (unknown) (unknown) (no date) (unknown) (unknown) Orders (units unknown) (unknown) (unknown) (no date) (unknown) (unknown) Oxygen Deliver y Method Room Air 07/20/22 15:00 (units unknown) (unknown) (unknown) (no date) (unknown) (unknown) Oxygen Deliver y Method Room Air (units unknown) (unknown) (unknown) (no date) (unknown) (unknown) Oxygen Deliver y Method (units unknown) (unknown) (unknown) (no date) (unknown) (unknown) PRN Reason: Na usea And Vomiting (units unknown) (unknown) (unknown) (no date) (unknown) (unknown) PSYCHIATRIC: N o concerning psychosocial issues. (units unknown) (unknown) (unknown) (no date) (unknown) (unknown) Patient Disposition: Home (units unknown) (unknown) (unknown) (no date) (unknown) (unknown) Patient History (uni ts unknown) (unknown) (unknown) (no date) (unknown) (unknown) Patient: Ning Lerma MR#: M (units unknown) (unknown) (unknown) (no date) (unknown) (unknown) Plt Count (150 -400) X103/uL (units unknown) (unknown) (unknown) (no date) (unknown) (unknown) Plt Count 264 (150-400) X103/uL (units unknown) (unknown) (unknown) (no date) (unknown) (unknown) Point of Care Testing (units unknown) (unknown) (unknown) (no date) (unknown) (unknown) Point of care testing: (units unknown) (unknown) (unknown) (no date) (unknown) (unknown) Potassium (3.4 -5.1) mmol/L (units unknown) (unknown) (unknown) (no date) (unknown) (unknown) Potassium 4.6 (3.4-5.1) mmol/L (units unknown) (unknown) (unknown) (no date) (unknown) (unknown) Pulse Oximetry 95 93 (units unknown) (unknown) (unknown) (no date) (unknown) (unknown) Pulse Oximetry 95 98 (units unknown) (unknown) (unknown) (no date) (unknown) (unknown) Pulse Oximetry 96 (u nits unknown) (unknown) (unknown) (no date) (unknown) (unknown) Pulse Oximetry 97 07/20/22 15:00 (units unknown) (unknown) (unknown) (no date) (unknown) (unknown) Pulse Oximetry 97 (u nits unknown) (unknown) (unknown) (no date) (unknown) (unknown) Pulse Rate 67 07/20/22 15:00 (units unknown) (unknown) (unknown) (no date) (unknown) (unknown) Pulse Rate 72 (units unknown) (unknown) (unknown) (no date) (unknown) (unknown) Pulse Rate 74 70 (un its unknown) (unknown) (unknown) (no date) (unknown) (unknown) Pulse Rate 74 75 (un its unknown) (unknown) (unknown) (no date) (unknown) (unknown) Pulse Rate 74 (units unknown) (unknown) (unknown) (no date) (unknown) (unknown) RBC (4.0-5.2) X106/uL (units unknown) (unknown) (unknown) (no date) (unknown) (unknown) RBC 4.88 (4.0- 5.2) X106/uL (units unknown) (unknown) (unknown) (no date) (unknown) (unknown) RDW (11.6-14.8) % (u nits unknown) (unknown) (unknown) (no date) (unknown) (unknown) RDW 13.9 (11.6-14.8) % (units unknown) (unknown) (unknown) (no date) (unknown) (unknown) RESPIRATORY: C lear to auscultation. Breath sounds equal bilaterally. No wheezes, (units unknown) (unknown) (unknown) (no date) (unknown) (unknown) RESPIRATORY: D enies dyspnea, cough, wheezing, hemoptysis, sputum. (units unknown) (unknown) (unknown) (no date) (unknown) (unknown) Re-evaluations : Patient feeling much better, no dizziness, no nausea or (units unknown) (unknown) (unknown) (no date) (unknown) (unknown) Related Data (units unknown) (unknown) (unknown) (no date) (unknown) (unknown) Resource line at [phone]. They will ask some questions about your medical (units unknown) (unknown) (unknown) (no date) (unknown) (unknown) Respiratory Rate 17 (units unknown) (unknown) (unknown) (no date) (unknown) (unknown) Respiratory Ra te 18 07/20/22 15:00 (units unknown) (unknown) (unknown) (no date) (unknown) (unknown) Respiratory Ra te 18 16 (units unknown) (unknown) (unknown) (no date) (unknown) (unknown) Respiratory Rate 19 (units unknown) (unknown) (unknown) (no date) (unknown) (unknown) Respiratory Ra te 38 H (units unknown) (unknown) (unknown) (no date) (unknown) (unknown) Review of Systems (u nits unknown) (unknown) (unknown) (no date) (unknown) (unknown) SKIN: Denies r edilberto, skin lesions, or other (units unknown) (unknown) (unknown) (no date) (unknown) (unknown) SKIN: No rash or erythema of visible areas (units unknown) (unknown) (unknown) (no date) (unknown) (unknown) Signed By: (units unknown) (unknown) (unknown) (no date) (unknown) (unknown) Smoking Status : Current every day smoker (units unknown) (unknown) (unknown) (no date) (unknown) (unknown) Social History (units unknown) (unknown) (unknown) (no date) (unknown) (unknown) Sodium (137-14 5) mmol/L (units unknown) (unknown) (unknown) (no date) (unknown) (unknown) Sodium 131 L (137-145) mmol/L (units unknown) (unknown) (unknown) (no date) (unknown) (unknown) Sodium Chlorid e (Normal Saline 0.9%) 1,000 mls @ 1,000 mls/hr IV BOLUS ONE (units unknown) (unknown) (unknown) (no date) (unknown) (unknown) Source: patient (uni ts unknown) (unknown) (unknown) (no date) (unknown) (unknown) Stand Alone Fo jeff: Patient Portal/API (units unknown) (unknown) (unknown) (no date) (unknown) (unknown) Stated complai nt: Possible DKA (units unknown) (unknown) (unknown) (no date) (unknown) (unknown) Stop: 07/20/22 17:30 (units unknown) (unknown) (unknown) (no date) (unknown) (unknown) Stop: 07/20/22 20:32 (units unknown) (unknown) (unknown) (no date) (unknown) (unknown) Stop: 07/20/22 21:50 (units unknown) (unknown) (unknown) (no date) (unknown) (unknown) Stop: 07/20/22 21:53 (units unknown) (unknown) (unknown) (no date) (unknown) (unknown) Substance Use Type: marijuana (units unknown) (unknown) (unknown) (no date) (unknown) (unknown) Sulfa (Sulfona mide Allergy Unknown Verified 07/20/22 15:11 (units unknown) (unknown) (unknown) (no date) (unknown) (unknown) Temperature 97 .9 F 07/20/22 15:00 (units unknown) (unknown) (unknown) (no date) (unknown) (unknown) Time Seen by Provider: 07/20/22 19:43 (units unknown) (unknown) (unknown) (no date) (unknown) (unknown) Total Bilirubi n (0.2-1.3) mg/dL (units unknown) (unknown) (unknown) (no date) (unknown) (unknown) Total Bilirubi n 0.5 (0.2-1.3) mg/dL (units unknown) (unknown) (unknown) (no date) (unknown) (unknown) Total Creatine Kinase (30-135) U/L (units unknown) (unknown) (unknown) (no date) (unknown) (unknown) Total Creatine Kinase 73 (30-135) U/L (units unknown) (unknown) (unknown) (no date) (unknown) (unknown) Total Protein (6.3-8.2) g/dL (units unknown) (unknown) (unknown) (no date) (unknown) (unknown) Total Protein 8.1 (6.3-8.2) g/dL (units unknown) (unknown) (unknown) (no date) (unknown) (unknown) Treatments:Saline (u nits unknown) (unknown) (unknown) (no date) (unknown) (unknown) Troponin + CK Cardiac Panel Stat (units unknown) (unknown) (unknown) (no date) (unknown) (unknown) Troponin I < 0 .012 (0.01-0.034) ng/mL (units unknown) (unknown) (unknown) (no date) (unknown) (unknown) Troponin I (0.01-0.034) ng/mL (units unknown) (unknown) (unknown) (no date) (unknown) (unknown) Ur Bilirubin Confirm (Negative) (units unknown) (unknown) (unknown) (no date) (unknown) (unknown) Ur Bilirubin Confirm Negative (Negative) (units unknown) (unknown) (unknown) (no date) (unknown) (unknown) Ur Leukocyte Esterase (NEGATIVE) (units unknown) (unknown) (unknown) (no date) (unknown) (unknown) Ur Leukocyte Esterase Negative (NEGATIVE) (units unknown) (unknown) (unknown) (no date) (unknown) (unknown) Ur Specific Gr avity (1.000-1.035) (units unknown) (unknown) (unknown) (no date) (unknown) (unknown) Ur Specific Gr avity 1.015 (1.000-1.035) (units unknown) (unknown) (unknown) (no date) (unknown) (unknown) Ur Squamous Ep ith Cells (0-5/HPF) (units unknown) (unknown) (unknown) (no date) (unknown) (unknown) Ur Squamous Ep ith Cells 0-1 /hpf (0-5/HPF) (units unknown) (unknown) (unknown) (no date) (unknown) (unknown) Urine Appearan ce Clear (units unknown) (unknown) (unknown) (no date) (unknown) (unknown) Urine Appearance (un its unknown) (unknown) (unknown) (no date) (unknown) (unknown) Urine Bacteria (None) (units unknown) (unknown) (unknown) (no date) (unknown) (unknown) Urine Bacteria None seen (None) (units unknown) (unknown) (unknown) (no date) (unknown) (unknown) Urine Bilirubi n (NEGATIVE) (units unknown) (unknown) (unknown) (no date) (unknown) (unknown) Urine Bilirubi n 1+ H (NEGATIVE) (units unknown) (unknown) (unknown) (no date) (unknown) (unknown) Urine Color Yellow ( units unknown) (unknown) (unknown) (no date) (unknown) (unknown) Urine Color (units unknown) (unknown) (unknown) (no date) (unknown) (unknown) Urine Glucose (UA) (Negative) g/dL (units unknown) (unknown) (unknown) (no date) (unknown) (unknown) Urine Glucose (UA) 2+ H (Negative) g/dL (units unknown) (unknown) (unknown) (no date) (unknown) (unknown) Urine Ketones (NEGATIVE) (units unknown) (unknown) (unknown) (no date) (unknown) (unknown) Urine Ketones 2+ H (NEGATIVE) (units unknown) (unknown) (unknown) (no date) (unknown) (unknown) Urine Nitrate (Negative) (units unknown) (unknown) (unknown) (no date) (unknown) (unknown) Urine Nitrate Negative (Negative) (units unknown) (unknown) (unknown) (no date) (unknown) (unknown) Urine Occult B lood (Negative) (units unknown) (unknown) (unknown) (no date) (unknown) (unknown) Urine Occult B lood Trace-intact (Negative) (units unknown) (unknown) (unknown) (no date) (unknown) (unknown) Urine Pregnanc y Test (Negative) (units unknown) (unknown) (unknown) (no date) (unknown) (unknown) Urine Pregnanc y Test Negative (Negative) (units unknown) (unknown) (unknown) (no date) (unknown) (unknown) Urine Protein (Negative) (units unknown) (unknown) (unknown) (no date) (unknown) (unknown) Urine Protein Negative (Negative) (units unknown) (unknown) (unknown) (no date) (unknown) (unknown) Urine RBC (0-5/HPF) (units unknown) (unknown) (unknown) (no date) (unknown) (unknown) Urine RBC 0-1/ hpf (0-5/HPF) (units unknown) (unknown) (unknown) (no date) (unknown) (unknown) Urine Urobilin ogen (0.2) E.U./dL (units unknown) (unknown) (unknown) (no date) (unknown) (unknown) Urine Urobilin ogen 0.2 (0.2) E.U./dL (units unknown) (unknown) (unknown) (no date) (unknown) (unknown) Urine WBC (0-5/HPF) (units unknown) (unknown) (unknown) (no date) (unknown) (unknown) Urine WBC 0-1/ hpf (0-5/HPF) (units unknown) (unknown) (unknown) (no date) (unknown) (unknown) Urine pH (4.5-8.0) ( units unknown) (unknown) (unknown) (no date) (unknown) (unknown) Urine pH 6.0 (4.5-8.0) (units unknown) (unknown) (unknown) (no date) (unknown) (unknown) VBG Base Exces s (0-4) mmol/L (units unknown) (unknown) (unknown) (no date) (unknown) (unknown) VBG Base Exces s 6.0 H (0-4) mmol/L (units unknown) (unknown) (unknown) (no date) (unknown) (unknown) VBG HCO3 (24-2 8) mmol/L (units unknown) (unknown) (unknown) (no date) (unknown) (unknown) VBG HCO3 32 H (24-28) mmol/L (units unknown) (unknown) (unknown) (no date) (unknown) (unknown) VBG O2 Saturat ion (70-75) % (units unknown) (unknown) (unknown) (no date) (unknown) (unknown) VBG O2 Saturat ion 10 L (70-75) % (units unknown) (unknown) (unknown) (no date) (unknown) (unknown) VBG Total CO2 (24-29) mmol/L (units unknown) (unknown) (unknown) (no date) (unknown) (unknown) VBG Total CO2 34 H (24-29) mmol/L (units unknown) (unknown) (unknown) (no date) (unknown) (unknown) VBG [Venous Bl ood Gas] Stat (units unknown) (unknown) (unknown) (no date) (unknown) (unknown) VBG pCO2 (45-5 0) mmHg (units unknown) (unknown) (unknown) (no date) (unknown) (unknown) VBG pCO2 65.2 H (45-50) mmHg (units unknown) (unknown) (unknown) (no date) (unknown) (unknown) VBG pH (7.33-7.43) ( units unknown) (unknown) (unknown) (no date) (unknown) (unknown) VBG pH 7.30 L (7.33-7.43) (units unknown) (unknown) (unknown) (no date) (unknown) (unknown) VBG pO2 (35-45 ) mmHg (units unknown) (unknown) (unknown) (no date) (unknown) (unknown) VBG pO2 12 L (35-45) mmHg (units unknown) (unknown) (unknown) (no date) (unknown) (unknown) Vital Signs - 8 hr ( units unknown) (unknown) (unknown) (no date) (unknown) (unknown) Vital Signs (units unknown) (unknown) (unknown) (no date) (unknown) (unknown) Vital signs: (units unknown) (unknown) (unknown) (no date) (unknown) (unknown) WBC (4.5-11.0) X103/uL (units unknown) (unknown) (unknown) (no date) (unknown) (unknown) WBC 10.4 (4.5- 11.0) X103/uL (units unknown) (unknown) (unknown) (no date) (unknown) (unknown) [Embedded Imag e Not Available] (units unknown) (unknown) (unknown) (no date) (unknown) (unknown) [[id number]] EKG is normal sinus rhythm rate [ 74] and free of any signs of ischemia (units unknown) (unknown) (unknown) (no date) (unknown) (unknown) additional outpatient follow up (units unknown) (unknown) (unknown) (no date) (unknown) (unknown) alcohol intake frequency: a few times a month (units unknown) (unknown) (unknown) (no date) (unknown) (unknown) appointment. L et them know you were seen in the Emergency Department and that we (units unknown) (unknown) (unknown) (no date) (unknown) (unknown) appropriate pe rson to potentially alter the insulin regimen. (units unknown) (unknown) (unknown) (no date) (unknown) (unknown) ask that you b e seen in follow up. We will electronically transmit a record of (units unknown) (unknown) (unknown) (no date) (unknown) (unknown) been reviewed with patient as well as indications for ED re-evaluation and (units unknown) (unknown) (unknown) (no date) (unknown) (unknown) cardiac versus other (units unknown) (unknown) (unknown) (no date) (unknown) (unknown) cephalexin [Fr om Keflex] Allergy Unknown Verified 07/20/22 15:11 (units unknown) (unknown) (unknown) (no date) (unknown) (unknown) concerning symptoms, such as [fever greater than 101 F, shaking chills, (units unknown) (unknown) (unknown) (no date) (unknown) (unknown) constipation, melena. (units unknown) (unknown) (unknown) (no date) (unknown) (unknown) diabetic regim en and we did discuss that her primary care provider is the most (units unknown) (unknown) (unknown) (no date) (unknown) (unknown) dizziness. (units unknown) (unknown) (unknown) (no date) (unknown) (unknown) feels much bet ter, blood glucose down to the 170s. She is had no infectious (units unknown) (unknown) (unknown) (no date) (unknown) (unknown) fever or chill s. She is had no urinary complaints denies any diarrhea. (units unknown) (unknown) (unknown) (no date) (unknown) (unknown) for many month s and has had extensive workups without any significant findings. (units unknown) (unknown) (unknown) (no date) (unknown) (unknown) her medication s from Lantus to glargine and suggest this isn't working quite as (units unknown) (unknown) (unknown) (no date) (unknown) (unknown) history and he lp get you set up with a doctor in the community. (units unknown) (unknown) (unknown) (no date) (unknown) (unknown) icterus. No injection or drainage. (units unknown) (unknown) (unknown) (no date) (unknown) (unknown) improved. Ther e is no indication that you have diabetic ketoacidosis] (units unknown) (unknown) (unknown) (no date) (unknown) (unknown) mild distress. (unit s unknown) (unknown) (unknown) (no date) (unknown) (unknown) no acidosis, a nion gap or abnormal bicarb. Patient given a few L of fluid and (units unknown) (unknown) (unknown) (no date) (unknown) (unknown) or ectopy. No ST segmental elevation or depression. No T wave inversions (units unknown) (unknown) (unknown) (no date) (unknown) (unknown) possible DKA. She is been having dizziness and lightheadedness with headaches (units unknown) (unknown) (unknown) (no date) (unknown) (unknown) rales, or rhonchi. ( units unknown) (unknown) (unknown) (no date) (unknown) (unknown) regular, lungs clear. Abdomen soft (units unknown) (unknown) (unknown) (no date) (unknown) (unknown) seizures, incoordination. (units unknown) (unknown) (unknown) (no date) (unknown) (unknown) symptoms inclu ding dizziness. Patient has reassuring history and physical exam, (units unknown) (unknown) (unknown) (no date) (unknown) (unknown) symptoms or ob vious sources. She has had a relatively recent change in her (units unknown) (unknown) (unknown) (no date) (unknown) (unknown) today's note i f your PCP is in our system (units unknown) (unknown) (unknown) (no date) (unknown) (unknown) tonsillar hypertrophy or exudate. Airway patent. (units unknown) (unknown) (unknown) (no date) (unknown) (unknown) vitals are sta ble, labs demonstrate mild hyperglycemia but no evidence of DKA, (units unknown) (unknown) (unknown) (no date) (unknown) (unknown) vomiting, abigail l signs improved (units unknown) (unknown) (unknown) (no date) (unknown) (unknown) well. She garrison es runny nose, sore throat, chest pain or cough. She denies any (units unknown) (unknown) (unknown) (no date) (unknown) (unknown) worsening pain , persistent vomiting or other bothersome symptoms] (units unknown) (unknown) Result panel 124 (unknown) (no date) (unknown) (unknown) 0.18 mmol/l (unknown ) (unknown) (no date) (unknown) (unknown) 0.18 mmol/l (unknown ) Social History date description facility 2022-07-20 00:00 Smokes tobacco daily (finding) [facility] Vital Signs date measurement value units 2022-07-20 00:00 BMI 35.3 kg/m2 2022-07-20 00:00 BP_diastolic 59 mmHg 2022-07-20 00:00 BP_systolic 128 mmHg 2022-07-20 00:00 heart_rate 72 /min 2022-07-20 00:00 height_metric 157.48 cm 2022-07-20 00:00 height_standard 62 in 2022-07-20 00:00 o2_saturation 97 % 2022-07-20 00:00 respiration_rate 17 /min 2022-07-20 00:00 temperature_metric 36.61 C 2022-07-20 00:00 temperature_standard 97.9 F 2022-07-20 00:00 weight_metric 87.54 kg 2022-07-20 00:00 weight_standard 192.99 lb
== END 2022-08-14 17:40 | disposition home or self-care (01) ==
LOC: ED 16:53
DX: K04.7 Periapical abscess without sinus (principal); I10 Essential (primary) hypertension; E11.42 Type 2 diabetes mellitus with diabetic polyneuropathy; Z79.4 Long term (current) use of insulin; F17.200 Nicotine dependence, unspecified, uncomplicated
CPT/HCPCS: 99282; 99283

== ENCOUNTER 2022-09-19 00:36 | Emergency (ER) | payer OTHER ==
--- OUTSIDE RECORDS SUMMARY | 2022-09-19 00:59 | EXTERNAL MEDICAL SUMMARY RPT | Continuity of Care Document ---
Author Name Unknown Address [address] [place] [address] Phone Organization [facility] Address [address] [place] [address] Phone Care Team Providers Care Head Of Strategy Name Role Phone Aftab Riley Unavailable Unavailable Allergies and Intolerances date description facility type (no date) Sulfa (Sulfonamide Antibiotics) [facility] (unknown) (no date) cephalexin [facility] (unknown) Problems date description facility 2022-07-20 00:00 Diabetes mellitus formerly [facility] 2022-07-30 08:17 Type 2 diabetes mellitus with h yperglycemia [facility] Results/Labs test date author facility value unit interpretation Result panel 1 (unknown) (no date) (unknown) [facility] (no value) (units unknown) (unknown) Result panel 2 (unknown) (no date) (unknown) [facility] (no value) (units unknown) (unknown) Result panel 3 (unknown) (no date) (unknown) [facility] (no value) (units unknown) (unknown) Result panel 4 (unknown) (no date) (unknown) [facility] (no value) (units unknown) (unknown) Result panel 5 (unknown) (no date) (unknown) [facility] (no value) (units unknown) (unknown) Result panel 6 (unknown) (no date) (unknown) [facility] (no value) (units unknown) (unknown) Result panel 7 (unknown) (no date) (unknown) [facility] (no value) (units unknown) (unknown) Result panel 8 (unknown) (no date) (unknown) [facility] (no value) (units unknown) (unknown) Result panel 9 (unknown) (no date) (unknown) [facility] (no value) (units unknown) (unknown) Result panel 10 (unknown) (no date) (unknown) [facility] (no value) (units unknown) (unknown) Result panel 11 (unknown) (no date) (unknown) [facility] (no value) (units unknown) (unknown) Result panel 12 (unknown) (no date) (unknown) [facility] (no value) (units unknown) (unknown) Result panel 13 (unknown) (no date) (unknown) [facility] (no value) (units unknown) (unknown) Result panel 14 (unknown) (no date) (unknown) [facility] (no value) (units unknown) (unknown) Result panel 15 (unknown) (no date) (unknown) [facility] (no value) (units unknown) (unknown) Result panel 16 (unknown) (no date) (unknown) [facility] (no value) (units unknown) (unknown) Result panel 17 (unknown) (no date) (unknown) [facility] (no value) (units unknown) (unknown) Result panel 18 (unknown) (no date) (unknown) [facility] (no value) (units unknown) (unknown) Result panel 19 (unknown) (no date) (unknown) [facility] (no value) (units unknown) (unknown) Result panel 20 (unknown) (no date) (unknown) [facility] (no value) (units unknown) (unknown) Result panel 21 (unknown) (no date) (unknown) [facility] (no value) (units unknown) (unknown) Result panel 22 (unknown) (no date) (unknown) [facility] (no value) (units unknown) (unknown) Result panel 23 (unknown) (no date) (unknown) [facility] (no value) (units unknown) (unknown) Result panel 24 (unknown) (no date) (unknown) [facility] (no value) (units unknown) (unknown) Result panel 25 (unknown) (no date) (unknown) [facility] (no value) (units unknown) (unknown) Result panel 26 (unknown) (no date) (unknown) [facility] (no value) (units unknown) (unknown) Result panel 27 (unknown) (no date) (unknown) [facility] (no value) (units unknown) (unknown) Result panel 28 (unknown) (no date) (unknown) [facility] (no value) (units unknown) (unknown) Result panel 29 (unknown) (no date) (unknown) [facility] (no value) (units unknown) (unknown) Result panel 30 (unknown) (no date) (unknown) [facility] (no value) (units unknown) (unknown) Result panel 31 (unknown) (no date) (unknown) [facility] (no value) (units unknown) (unknown) Result panel 32 (unknown) (no date) (unknown) [facility] (no value) (units unknown) (unknown) Result panel 33 (unknown) (no date) (unknown) [facility] (no value) (units unknown) (unknown) Result panel 34 (unknown) (no date) (unknown) [facility] (no value) (units unknown) (unknown) Result panel 35 (unknown) (no date) (unknown) [facility] (no value) (units unknown) (unknown) Result panel 36 (unknown) (no date) (unknown) [facility] (no value) (units unknown) (unknown) Result panel 37 (unknown) (no date) (unknown) [facility] (no value) (units unknown) (unknown) Result panel 38 (unknown) (no date) (unknown) [facility] (no value) (units unknown) (unknown) Result panel 39 (unknown) (no date) (unknown) [facility] (no value) (units unknown) (unknown) Result panel 40 (unknown) (no date) (unknown) [facility] (no value) (units unknown) (unknown) Result panel 41 (unknown) (no date) (unknown) [facility] (no value) (units unknown) (unknown) Result panel 42 (unknown) (no date) (unknown) [facility] (no value) (units unknown) (unknown) Result panel 43 (unknown) (no date) (unknown) [facility] (no value) (units unknown) (unknown) Result panel 44 (unknown) (no date) (unknown) [facility] (no value) (units unknown) (unknown) Result panel 45 (unknown) (no date) (unknown) [facility] (no value) (units unknown) (unknown) Result panel 46 (unknown) (no date) (unknown) [facility] (no value) (units unknown) (unknown) Result panel 47 (unknown) (no date) (unknown) [facility] (no value) (units unknown) (unknown) Result panel 48 (unknown) (no date) (unknown) [facility] (no value) (units unknown) (unknown) Result panel 49 (unknown) (no date) (unknown) [facility] (no value) (units unknown) (unknown) Result panel 50 (unknown) (no date) (unknown) [facility] (no value) (units unknown) (unknown) Result panel 51 (unknown) (no date) (unknown) [facility] (no value) (units unknown) (unknown) Result panel 52 (unknown) (no date) (unknown) [facility] (no value) (units unknown) (unknown) Result panel 53 (unknown) (no date) (unknown) [facility] (no value) (units unknown) (unknown) Result panel 54 (unknown) (no date) (unknown) [facility] (no value) (units unknown) (unknown) Result panel 55 (unknown) (no date) (unknown) [facility] (no value) (units unknown) (unknown) Result panel 56 (unknown) (no date) (unknown) [facility] (no value) (units unknown) (unknown) Result panel 57 (unknown) (no date) (unknown) [facility] (no value) (units unknown) (unknown) Result panel 58 (unknown) (no date) (unknown) [facility] (no value) (units unknown) (unknown) Result panel 59 (unknown) (no date) (unknown) [facility] (no value) (units unknown) (unknown) Result panel 60 (unknown) (no date) (unknown) [facility] (no value) (units unknown) (unknown) Result panel 61 (unknown) (no date) (unknown) [facility] (no value) (units unknown) (unknown) Result panel 62 (unknown) (no date) (unknown) [facility] (no value) (units unknown) (unknown) Result panel 63 (unknown) (no date) (unknown) [facility] (no value) (units unknown) (unknown) Result panel 64 (unknown) (no date) (unknown) [facility] (no value) (units unknown) (unknown) Result panel 65 (unknown) (no date) (unknown) [facility] (no value) (units unknown) (unknown) Result panel 66 (unknown) (no date) (unknown) [facility] (no value) (units unknown) (unknown) Result panel 67 (unknown) (no date) (unknown) [facility] (no value) (units unknown) (unknown) Result panel 68 (unknown) (no date) (unknown) [facility] (no value) (units unknown) (unknown) Result panel 69 (unknown) (no date) (unknown) [facility] (no value) (units unknown) (unknown) Result panel 70 (unknown) (no date) (unknown) [facility] (no value) (units unknown) (unknown) Result panel 71 (unknown) (no date) (unknown) [facility] (no value) (units unknown) (unknown) Result panel 72 (unknown) (no date) (unknown) [facility] (no value) (units unknown) (unknown) Result panel 73 (unknown) (no date) (unknown) [facility] (no value) (units unknown) (unknown) Result panel 74 (unknown) (no date) (unknown) [facility] (no value) (units unknown) (unknown) Result panel 75 (unknown) (no date) (unknown) [facility] (no value) (units unknown) (unknown) Result panel 76 (unknown) (no date) (unknown) [facility] (no value) (units unknown) (unknown) Result panel 77 (unknown) (no date) (unknown) [facility] (no value) (units unknown) (unknown) Result panel 78 (unknown) (no date) (unknown) [facility] (no value) (units unknown) (unknown) Result panel 79 (unknown) (no date) (unknown) [facility] (no value) (units unknown) (unknown) Result panel 80 (unknown) (no date) (unknown) [facility] (no value) (units unknown) (unknown) Result panel 81 (unknown) (no date) (unknown) [facility] (no value) (units unknown) (unknown) Result panel 82 (unknown) (no date) (unknown) [facility] (no value) (units unknown) (unknown) Result panel 83 (unknown) (no date) (unknown) [facility] (no value) (units unknown) (unknown) Result panel 84 (unknown) (no date) (unknown) [facility] (no value) (units unknown) (unknown) Result panel 85 (unknown) (no date) (unknown) [facility] (no value) (units unknown) (unknown) Result panel 86 (unknown) (no date) (unknown) [facility] (no value) (units unknown) (unknown) Result panel 87 (unknown) (no date) (unknown) [facility] (no value) (units unknown) (unknown) Result panel 88 (unknown) (no date) (unknown) [facility] (no value) (units unknown) (unknown) Result panel 89 (unknown) (no date) (unknown) [facility] (no value) (units unknown) (unknown) Result panel 90 (unknown) (no date) (unknown) [facility] (no value) (units unknown) (unknown) Result panel 91 (unknown) (no date) (unknown) [facility] (no value) (units unknown) (unknown) Result panel 92 (unknown) (no date) (unknown) [facility] (no value) (units unknown) (unknown) Result panel 93 (unknown) (no date) (unknown) [facility] (no value) (units unknown) (unknown) Result panel 94 (unknown) (no date) (unknown) [facility] (no value) (units unknown) (unknown) Result panel 95 (unknown) (no date) (unknown) [facility] (no value) (units unknown) (unknown) Result panel 96 (unknown) (no date) (unknown) [facility] (no value) (units unknown) (unknown) Result panel 97 (unknown) (no date) (unknown) [facility] (no value) (units unknown) (unknown) Result panel 98 (unknown) (no date) (unknown) [facility] (no value) (units unknown) (unknown) Result panel 99 (unknown) (no date) (unknown) [facility] (no value) (units unknown) (unknown) Result panel 100 (unknown) (no date) (unknown) [facility] (no value) (units unknown) (unknown) Result panel 101 (unknown) (no date) (unknown) [facility] (no value) (units unknown) (unknown) Result panel 102 (unknown) (no date) (unknown) [facility] (no value) (units unknown) (unknown) Result panel 103 (unknown) (no date) (unknown) [facility] (no value) (units unknown) (unknown) Result panel 104 (unknown) (no date) (unknown) [facility] (no value) (units unknown) (unknown) Result panel 105 (unknown) (no date) (unknown) [facility] (no value) (units unknown) (unknown) Result panel 106 (unknown) (no date) (unknown) [facility] (no value) (units unknown) (unknown) Result panel 107 (unknown) (no date) (unknown) [facility] (no value) (units unknown) (unknown) Result panel 108 (unknown) (no date) (unknown) [facility] (no value) (units unknown) (unknown) Result panel 109 (unknown) (no date) (unknown) [facility] (no value) (units unknown) (unknown) Result panel 110 (unknown) (no date) (unknown) [facility] (no value) (units unknown) (unknown) Result panel 111 (unknown) (no date) (unknown) [facility] (no value) (units unknown) (unknown) Result panel 112 (unknown) (no date) (unknown) [facility] (no value) (units unknown) (unknown) Result [...] unknown) (unknown) (unknown) (no date) (unknown) (unknown) [phone] (units unknown) (unknown) (unknown) (no date) (unknown) [...] (unknown) (no date) (unknown) (unknown) : 9 Acct:[id number] (units unknown) (unknown) (unknown) (no date) (unknown) [...] unknown) (unknown) (unknown) (no date) (unknown) (unknown) [facility] [address] [place] [id number] (units unknown) (unknown) (unknown) (no date) (unknown) [...] (no date) (unknown) (unknown) Lymph # (Auto) ([phone]) /uL (units unknown) (unknown) (unknown) (no date) (unknown) (unknown) Lymph # (Auto) 3100 (0534-5460) /uL (units unknown) (unknown) (unknown) (no date) [...] unknown) (unknown) (unknown) (no date) (unknown) (unknown) [place] # (Auto) (0-900) /uL (units unknown) (unknown) (unknown) (no date) (unknown) (unknown) [place] # (Auto) 700 (0-900) /uL (units unknown) (unknown) (unknown) (no date) (unknown) (unknown) [place] % (Auto) (3-14) % (units unknown) (unknown) (unknown) (no date) (unknown) (unknown) [place] % (Auto) 6.5 (3-14) % (units unknown) (unknown) (unknown) (no date) (unknown) (unknown) Neut # (Auto) (2526-8784) /uL (units unknown) (unknown) (unknown) (no date) (unknown) (unknown) Neut # (Auto) 6300 (8172-6025) /uL (units unknown) (unknown) (unknown) (no date) [...] unknown) (unknown) (unknown) (no date) (unknown) (unknown) [phone] (units unknown) (unknown) (unknown) (no date) (unknown) [...] (unknown) (no date) (unknown) (unknown) : 9 Acct:[id number] (units unknown) (unknown) (unknown) (no date) (unknown) [...] unknown) (unknown) (unknown) (no date) (unknown) (unknown) [facility] [address] [place] [phone] (units unknown) (unknown) (unknown) (no date) (unknown) [...] (no date) (unknown) (unknown) Lymph # (Auto) (4614-6488) /uL (units unknown) (unknown) (unknown) (no date) (unknown) (unknown) Lymph # (Auto) 3100 (6885-9695) /uL (units unknown) (unknown) (unknown) (no date) [...] unknown) (unknown) (unknown) (no date) (unknown) (unknown) [place] # (Auto) (0-900) /uL (units unknown) (unknown) (unknown) (no date) (unknown) (unknown) [place] # (Auto) 700 (0-900) /uL (units unknown) (unknown) (unknown) (no date) (unknown) (unknown) [place] % (Auto) (3-14) % (units unknown) (unknown) (unknown) (no date) (unknown) (unknown) [place] % (Auto) 6.5 (3-14) % (units unknown) [...] (no date) (unknown) (unknown) Neut # (Auto) (3461-2725) /uL (units unknown) (unknown) (unknown) (no date) (unknown) (unknown) Neut # (Auto) 6300 (8827-5820) /uL (units unknown) (unknown) (unknown) (no date) [...] a primary care provider please contact the [facility] (units unknown) (unknown) (unknown) (no date) (unknown) [...] unknown) (unknown) (unknown) (no date) (unknown) (unknown) [phone] (units unknown) (unknown) (unknown) (no date) (unknown) [...] (unknown) (no date) (unknown) (unknown) : 9 Acct:[id number] (units unknown) (unknown) (unknown) (no date) (unknown) [...] unknown) (unknown) (unknown) (no date) (unknown) (unknown) [address] [address] (units unknown) (unknown) (unknown) (no date) (unknown) [...] (no date) (unknown) (unknown) Lymph # (Auto) (2258-5971) /uL (units unknown) (unknown) (unknown) (no date) (unknown) (unknown) Lymph # (Auto) 3100 (0596-5865) /uL (units unknown) (unknown) (unknown) (no date) [...] unknown) (unknown) (unknown) (no date) (unknown) (unknown) [place] # (Auto) (0-900) /uL (units unknown) (unknown) (unknown) (no date) (unknown) (unknown) [place] # (Auto) 700 (0-900) /uL (units unknown) (unknown) (unknown) (no date) (unknown) (unknown) [place] % (Auto) (3-14) % (units unknown) (unknown) (unknown) (no date) (unknown) (unknown) [place] % (Auto) 6.5 (3-14) % (units unknown) [...] (no date) (unknown) (unknown) Neut # (Auto) (3524-0284) /uL (units unknown) (unknown) (unknown) (no date) (unknown) (unknown) Neut # (Auto) 6300 (0737-6334) /uL (units unknown) (unknown) (unknown) (no date) [...] (no date) (unknown) (unknown) Resource line at [phone]. They will ask some questions about your [...] facility 2022-07-20 00:00 Smokes tobacco daily (finding) [facility] Vital Signs date measurement value units 2022-07-20 [...]
[2022-09-19] MEDS ORDERED: KETOROLAC 60 MG/2 ML VIAL IM STA (01:37)
[2022-09-19] MEDS ORDERED: HYDROCORTISONE 1% CREAM 28 GM TUBE TOP SCH (02:00)
[2022-09-19 03:27] LABS: BASOPHILS # (AUTO) 0.1 10^3/uL (0.0-0.1); BASOPHILS % (AUTO) 0.7 %; EOSINOPHILS # (AUTO) 0.4 10^3/uL (0.0-0.7); HCT - HEMATOCRIT 43.8 % (37.0-47.0); HGB - HEMOGLOBIN 14.8 g/dL (12.0-16.0); LYMPHOCYTES # (AUTO) 3.6 10^3/uL (1.5-3.5); LYMPHOCYTES % (AUTO) 26.5 %; MEAN CORPUSCULAR HEMOGLOBIN 32.4 pg (27.0-31.0); MEAN CORPUSCULAR HGB CONC 33.8 g/dL (32.0-36.0); MEAN CORPUSCULAR VOLUME 95.8 fL (81.0-99.0); MEAN PLATELET VOLUME 10.5 fL (7.9-10.8); MONOCYTES # (AUTO) 0.8 10^3/uL (0.0-1.0); MONOCYTES % (AUTO) 6.1 %; NEUTROPHILS # (AUTO) 8.6 10^3/uL (1.5-6.6); NEUTROPHILS % (AUTO) 63.4 %; PLT - PLATELET COUNT 243 10^3/uL (130-450); RED BLOOD COUNT 4.57 10^6/uL (4.20-5.40); RED CELL DISTRIBUTION WIDTH 13.7 % (12.0-15.0); WHITE BLOOD COUNT 13.5 x10^3/uL (4.8-10.8)
[2022-09-19 03:46] LABS: ALBUMIN 3.5 g/dL (3.2-5.5); BILIRUBIN,TOTAL 0.4 mg/dL (0.2-1.0); CALCIUM 9.5 mg/dL (8.5-10.3); CREATININE 0.8 mg/dL (0.4-1.0); POTASSIUM 4.5 mmol/L (3.5-5.0); TOTAL PROTEIN 6.9 g/dL (6.7-8.2)
[2022-09-19] MEDS ORDERED: DOXYCYCLINE 100 MG TABLET PO STA (03:54)
--- NOTE | 2022-09-19 03:57 | ED Physician Documentation ---
History of Present Illness - Stated complaint Stated Complaint: SPIDER BITE - Chief complaint Chief Complaint: General - Additonal information Additional information: Patient 52-year-old female presenting to the emergency department with spider bites to right hand. Occurred this morning while gardening. Since then has had some increased swelling to the right hand as well as itching that she states travels up to the right arm. Endorses for generalized body ache and fatigue. Expresses concern that it could have been a brown recluse. Denies any chest pain, abdominal pain, nausea, vomiting, diarrhea, constipation.. 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 : Chronic bladder infection, Nocturia, Frequency HEENT: Chronic vision loss, Chronic sinusitis Psych: Depression, Anxiety, Post traumatic stress disorder Musculoskeletal: Fibromyalgia, Fatigue Derm: None - Past Surgical History Past Surgical History: Yes General: Colonoscopy, EGD Ortho: Other Cardiovascular: Coronary stent, Cardiac catheterization, Angioplasty HEENT: Myringotomy (tubes) - Present Medications Home Medications: Ambulatory Orders Medication Instructions Recorded Confirmed Insulin Lispro [Humalog] 12 - 45 unit SQ QID 07/19/12 11/29/17 Butalb/Acetaminophen/Caffeine 1 each PO Q6H PRN #10 capsule 05/23/14 11/29/17 [Fioricet 50-300-40 mg Capsule] Albuterol [Ventolin Hfa] 2 puffs INH Q4H PRN 09/03/14 11/29/17 Cholecalciferol (Vitamin D3) 5,000 units PO DAILY 07/01/15 11/29/17 [Vitamin D3] Gabapentin [Neurontin] 1,200 mg PO TID 07/01/15 11/29/17 Cyclobenzaprine HCl 10 mg PO TID PRN 06/05/16 11/29/17 Nortriptyline HCl 50 mg PO DAILY 10/13/17 11/29/17 raNITIdine HCl [Zantac] 300 mg PO BID 10/13/17 11/29/17 Aspirin 81 mg PO DAILY 11/29/17 11/29/17 Clopidogrel Bisulfate [Clopidogrel] 75 mg PO DAILY 11/29/17 11/29/17 Nicotine 14 mg Patch [Nicoderm] 1 each TOP Q24H 11/29/17 11/29/17 Atorvastatin Calcium 80 mg PO DAILY #60 tablet 12/01/17 Insulin Glargine [Lantus Solostar] 45 unit SUBQ DAILY #0 pen 12/01/17 Isosorbide Mononitrate [Isosorbide 120 mg PO DAILY #30 tab.er.24h 12/01/17 Mononitrate ER] Metoprolol Succinate [Toprol Xl] 50 mg PO BIDWM #60 tablet 12/01/17 lisinopriL [Lisinopril] 2.5 mg PO DAILY #30 tablet 12/01/17 Hydrocodone/Acetaminophen [[place] 1 each PO Q6H PRN #15 tablet 03/26/18 5-325 Tablet] Naproxen 375 mg PO BID #20 tablet 03/26/18 hydrOXYzine pamoate [Vistaril] 50 mg PO BID PRN #10 capsule 10/28/18 Hydrocodone/Acetaminophen 1 - 2 each PO Q6H PRN #14 tablet 01/21/19 [Hydrocodon-Acetaminophen 5-325] HYDROcod/ACETAM 5/325 [[place] 5/325] 1 - 2 tab PO Q6H PRN #10 tablet 05/28/20 Dicyclomine [Bentyl] 1 - 2 tab PO QID PRN #20 cap 05/30/20 Carisoprodol [Soma] 350 mg PO TID PRN #20 tablet 07/07/20 HYDROcod/ACETAM 5/325 [[place] 5/325] 1 - 2 tab PO Q6H PRN #15 tablet 07/07/20 Diphenoxylate/Atropine [Lomotil] 1 each PO QID #20 tablet 08/05/21 Doxycycline Hyclate 100 mg PO BID #14 cap 08/14/22 HYDROcod/ACETAM 5/325 [[place] 5/325] 1 tablet PO BID PRN #10 tablet 08/14/22 Doxycycline Hyclate 100 mg PO BID #20 tab 09/19/22 - Allergies Allergies/Adverse Reactions: Allergies Allergy/AdvReac Type Severity Reaction Status Date / Time Fish Containing Products Allergy Severe Headache Verified 08/14/22 17:02 shellfish derived Allergy Unknown Verified 08/14/22 17:02 meperidine HCl * AdvReac Severe Respiratory Verified 08/14/22 17:02 [From Demerol] cephalexin monohydrate * AdvReac Intermediate Hives Verified 08/14/22 17:02 [From Keflex] Sulfa (Sulfonamide AdvReac Intermediate Hives Verified 08/14/22 17:02 Antibiotics) pecan Allergy Severe Unknown Uncoded 08/14/22 17:02 Seafood Allergy Severe Anaphylaxis Uncoded 08/14/22 17:02 Walnuts Allergy Severe Headache Uncoded 08/14/22 17:02 tape AdvReac Rash Uncoded 08/14/22 17:02 - Social History Does the pt smoke?: Yes Smoking Status: Current every day smoker Does the pt drink ETOH?: Yes Does the pt have substance abuse?: No - Immunizations Immunizations are current?: Yes Immunizations: TDAP >10years/unknown - POLST Patient has POLST: No POLST Status: Full Code PD ED PE NORMAL - General General: Alert and oriented X 3, No acute distress, Well developed/nourished, Other - HEENT HEENT: Atraumatic, Pharynx benign - Neck Neck: Supple, no meningeal sign - Cardiac Cardiac: RRR, No murmur - Respiratory Respiratory: No respiratory distress - Female Female : Deferred - Rectal Rectal: Deferred - Derm Derm: Other (Insect bites to right hand. There is a prominent bite on the dorsum of the right hand with surrounding erythema. There is no visible necrosis.) Results - Vitals Vitals: Vital Signs - 24 hr 09/19/22 00:44 Temperature 36.4 C L Heart Rate 86 Respiratory 18 Rate Blood Pressure 132/76 H O2 Saturation 97 Oxygen O2 Source Room air - Labs Labs: Laboratory Tests 09/19/22 09/19/22 03:23 03:23 WBC 13.5 H RBC 4.57 Hgb 14.8 Hct 43.8 MCV 95.8 MCH 32.4 H MCHC 33.8 RDW 13.7 Plt Count 243 MPV 10.5 Neut # (Auto) 8.6 H Lymph # (Auto) 3.6 H Hutchinson # (Auto) 0.8 Eos # (Auto) 0.4 Baso # (Auto) 0.1 Absolute Nucleated RBC 0.00 Nucleated RBC % 0.0 Sodium 138 Potassium 4.5 Chloride 100 L Carbon Dioxide 31 Anion Gap 7.0 BUN 21 H Creatinine 0.8 Estimated GFR (MDRD) 75 L Glucose 101 H Calcium 9.5 Total Bilirubin 0.4 AST 19 ALT 20 Alkaline Phosphatase 78 Total Protein 6.9 Albumin 3.5 Globulin 3.4 Albumin/Globulin Ratio 1.0 Lipase 28 PD Medical Decision Making - ED course Complexity details: reviewed results, re-evaluated patient, d/w patient, d/w family ED course: Patient 52-year-old female presenting to the emergency department with spider bites to her right hand. This is associated with myalgias and itching in the right arm. Afebrile, he medically stable. Is some erythema and obvious bites to the dorsum of the right hand. No surrounding necrosis. Patient denied abdominal pain that would be of concern for lack to her ductus envenomation. Osvaldo escamilla are not known to live in [facility] and therefore this is highly unlikely. Additionally the bite Does not demonstrate progressively worsening necrosis that would be typical for osvaldo herreraluse bite. Labs obtained demonstrated a nonspecific leukocytosis. Discussed with patient all findings. She was given Toradol here in the emergency department. In shared decision making will initiate course doxycycline. We will have patient follow-up with primary care or return to the emergency department as needed. Departure - Departure Disposition: 01 Home, Self Care Clinical Impression: Spider bite Qualifiers: Encounter type: initial encounter Injury intent: undetermined intent Qualified Code(s): T63.304A - Toxic effect of unspecified spider venom, undetermined, initial encounter Instructions: ED Bite Spider Non Poisonous Prescriptions: Doxycycline Hyclate 100 mg PO BID #20 tab Comments: Thank you for allowing us to care for you today at [facility]. Your prescriptions were sent electronically to [facility] in [place]. You can continue to take 25 mg of Benadryl which is available [id number] every 6 hours as needed for itching. Motrin and Tylenol can also be taken for pain and ice packs to the affected area may be quite helpful to decrease swelling as well. As we discussed I have sent a prescription for an oral antibiotic to your preferred pharmacy. This is to treat any potential super imposed bacterial infection. I recommend that you increase your intake and fiber full foods and natural probiotics while on antibiotics. Please follow-up with your primary care doctor. If it anytime you develop any new or worsening symptoms please do not hesitate to return.
[2022-09-19 04:10] VITALS: BP 120/84
== END 2022-09-19 04:12 | disposition home or self-care (01) ==
LOC: ED 00:36
DX: T63.301A Toxic effect of unspecified spider venom, accidental (unintentional), initial encounter (principal); F17.200 Nicotine dependence, unspecified, uncomplicated
CPT/HCPCS: 36415; 80053; 83690; 85025; 96372; 99283; A9270

== ENCOUNTER 2022-12-26 19:50 | Emergency (ER) | payer OTHER ==
--- NOTE | 2022-12-26 21:30 | XRAY Report ---
PROCEDURE: Knee 2 View LT INDICATIONS: glf bump below patella, unable to bare weight TECHNIQUE: 2 views of the knee was obtained. COMPARISON: None FINDINGS: Bones: No fractures or dislocations. No suspicious bony lesions. Soft tissues: No knee joint effusion. No suspicious soft tissue calcifications or masses. IMPRESSION: Unremarkable knee radiographs Reviewed by: Esvin Wallis MD on 12/26/2022 8:28 PM AKHERMELINDO Approved by: Esvin Wallis MD on 12/26/2022 8:28 PM AKDT Station ID: [id number]
--- NOTE | 2022-12-26 22:45 | CT Report ---
PROCEDURE: CT brain without contrast INDICATIONS: fall on plavix TECHNIQUE: Helical axial CT of the brain was obtained without contrast and reformatted in multiple p lanes. Radiation dose reduction was achieved using automated exposure control or adjustment of mA and /or kV according to patient size. COMPARISON: None FINDINGS: CSF spaces: Ventricles are appropriate in size and position. No hydrocephalus. Basal cisterns unre markable. Brain: No midline shift. No intracranial masses or hemorrhage. Gipson-white matter interface is norm al. Skull and face: Calvarium and skull base are unremarkable without suspicious lesion. Sinuses: Visualized sinuses and mastoids are clear. IMPRESSION: Unremarkable CT of the brain Reviewed by: Esvin Wallis MD on 12/26/2022 9:44 PM AKHERMELINDO Approved by: Esvin Wallis MD on 12/26/2022 9:44 PM AKDT Station ID: [id number]
--- NOTE | 2022-12-26 23:01 | ED Physician Documentation ---
PD HPI LOWER EXT INJURY - Stated complaint Stated Complaint: FALL - Chief complaint Chief Complaint: Trauma Ext - History obtained from History obtained from: Patient - Additional information Additional information: Patient is a 52-year-old female with a history of cardiac stents, neuropathy, fibromyalgia presenting for evaluation after fall tonight. Patient states that due to her neuropathy she slipped on her hardwood floor and fell. She reports pain primarily to the left knee and having pain with attempts at ambulating. She also believes she hit her face. She denies a headache, neck pain, chest pain or abdominal pain. She reports feeling sore all over. She reports having pain with ambulation due to discomfort below the left knee.She is on Plavix. Review of Systems Constitutional: denies: Fever Cardiac: denies: Chest pain / pressure Respiratory: denies: Dyspnea GI: denies: Abdominal Pain Musculoskeletal: reports: Extremity pain Neurologic: reports: Head injury. 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 : Chronic bladder infection, Nocturia, Frequency HEENT: Chronic vision loss, Chronic sinusitis Psych: Depression, Anxiety, Post traumatic stress disorder Musculoskeletal: Fibromyalgia, Fatigue Derm: None - Past Surgical History Past Surgical History: Yes General: Colonoscopy, EGD Ortho: Other Cardiovascular: Coronary stent, Cardiac catheterization, Angioplasty HEENT: Myringotomy (tubes) - Present Medications Home Medications: Ambulatory Orders Medication Instructions Recorded Confirmed Insulin Lispro [Humalog] 12 - 45 unit SQ QID 07/19/12 11/29/17 Butalb/Acetaminophen/Caffeine 1 each PO Q6H PRN #10 capsule 05/23/14 11/29/17 [Fioricet 50-300-40 mg Capsule] Albuterol [Ventolin Hfa] 2 puffs INH Q4H PRN 09/03/14 11/29/17 Cholecalciferol (Vitamin D3) 5,000 units PO DAILY 07/01/15 11/29/17 [Vitamin D3] Gabapentin [Neurontin] 1,200 mg PO TID 07/01/15 11/29/17 Cyclobenzaprine HCl 10 mg PO TID PRN 06/05/16 11/29/17 Nortriptyline HCl 50 mg PO DAILY 10/13/17 11/29/17 raNITIdine HCl [Zantac] 300 mg PO BID 10/13/17 11/29/17 Aspirin 81 mg PO DAILY 11/29/17 11/29/17 Clopidogrel Bisulfate [Clopidogrel] 75 mg PO DAILY 11/29/17 11/29/17 Nicotine 14 mg Patch [Nicoderm] 1 each TOP Q24H 11/29/17 11/29/17 Atorvastatin Calcium 80 mg PO DAILY #60 tablet 12/01/17 Insulin Glargine [Lantus Solostar] 45 unit SUBQ DAILY #0 pen 12/01/17 Isosorbide Mononitrate [Isosorbide 120 mg PO DAILY #30 tab.er.24h 12/01/17 Mononitrate ER] Metoprolol Succinate [Toprol Xl] 50 mg PO BIDWM #60 tablet 12/01/17 lisinopriL [Lisinopril] 2.5 mg PO DAILY #30 tablet 12/01/17 Hydrocodone/Acetaminophen [[place] 1 each PO Q6H PRN #15 tablet 03/26/18 5-325 Tablet] Naproxen 375 mg PO BID #20 tablet 03/26/18 hydrOXYzine pamoate [Vistaril] 50 mg PO BID PRN #10 capsule 10/28/18 Hydrocodone/Acetaminophen 1 - 2 each PO Q6H PRN #14 tablet 01/21/19 [Hydrocodon-Acetaminophen 5-325] HYDROcod/ACETAM 5/325 [[place] 5/325] 1 - 2 tab PO Q6H PRN #10 tablet 05/28/20 Dicyclomine [Bentyl] 1 - 2 tab PO QID PRN #20 cap 05/30/20 Carisoprodol [Soma] 350 mg PO TID PRN #20 tablet 07/07/20 HYDROcod/ACETAM 5/325 [[place] 5/325] 1 - 2 tab PO Q6H PRN #15 tablet 07/07/20 Diphenoxylate/Atropine [Lomotil] 1 each PO QID #20 tablet 08/05/21 Doxycycline Hyclate 100 mg PO BID #14 cap 08/14/22 HYDROcod/ACETAM 5/325 [[place] 5/325] 1 tablet PO BID PRN #10 tablet 08/14/22 Doxycycline Hyclate 100 mg PO BID #20 tab 09/19/22 - Allergies Allergies/Adverse Reactions: Allergies Allergy/AdvReac Type Severity Reaction Status Date / Time Fish Containing Products Allergy Severe Headache Verified 08/14/22 17:02 shellfish derived Allergy Unknown Verified 08/14/22 17:02 meperidine HCl * AdvReac Severe Respiratory Verified 08/14/22 17:02 [From Demerol] cephalexin monohydrate * AdvReac Intermediate Hives Verified 08/14/22 17:02 [From Keflex] Sulfa (Sulfonamide AdvReac Intermediate Hives Verified 08/14/22 17:02 Antibiotics) pecan Allergy Severe Unknown Uncoded 08/14/22 17:02 Seafood Allergy Severe Anaphylaxis Uncoded 08/14/22 17:02 Walnuts Allergy Severe Headache Uncoded 08/14/22 17:02 tape AdvReac Rash Uncoded 08/14/22 17:02 - Social History Does the pt smoke?: Yes Smoking Status: Current every day smoker Does the pt drink ETOH?: Yes Does the pt have substance abuse?: No - Immunizations Immunizations are current?: Yes Immunizations: TDAP >10years/unknown - POLST Patient has POLST: No POLST Status: Full Code PD ED PE NORMAL - General General: Alert and oriented X 3, No acute distress, Well developed/nourished - HEENT HEENT: Atraumatic, PERRL, EOMI, Moist mucous membranes, Pharynx benign - Neck Neck: Supple, no meningeal sign, No bony TTP, C-Spine cleared by NEXUS criteria - Cardiac Cardiac: RRR, No murmur, Strong equal pulses - Respiratory Respiratory: No respiratory distress, Clear bilaterally - Abdomen Abdomen: Soft, Non tender - Extremities Extremities: Other (Bruising to left knee, good range of motion, no pain at hip or ankle; No tenderness over patella) PD ED PE EXPANDED - Extremities ROSALBA LE visual: 1 - bruising Results - Vitals Vitals: Vital Signs - 24 hr 12/26/22 12/26/22 12/26/22 20:26 22:38 23:28 Temperature 36.4 C L Heart Rate 69 78 68 Respiratory 20 18 18 Rate Blood Pressure 143/60 H 142/61 H 143/69 H O2 Saturation 96 96 98 Oxygen O2 Source Room air PD Medical Decision Making - ED course Complexity details: reviewed results, re-evaluated patient, d/w patient ED course: Patient is a 52-year-old presenting for evaluation after a fall at home. She is on Plavix. Normal neuro exam. Primary concern is left knee pain. There is a small bruise present but otherwise no deformity and good range of motion. Neurovascularly intact and no pain elsewhere in other extremities. CT head was obtained as patient is on Plavix and is negative for intracranial hemorrhage. The EXTR was also ordered through triage and I see no fracture or dislocation. Patient was given a knee immobilizer and crutches. She is counseled on continued supportive care as well as need for close follow-up. Patient advised on strict return precautions for worsening symptoms. Departure - Departure Disposition: 01 Home, Self Care Clinical Impression: Left knee injury, Head injury Condition: Stable Instructions: ED Head Injury Closed, ED Knee Pain UKO Comments: The CT scan of your brain does not show Signs of injury or bleeding from your fall. Your knee x-ray also does not show a broken or out of place bone. We are placing you into a knee immobilizer and given you crutches. Please utilize these as needed to stay off the knee as long as it is hurting to put weight on the leg. Continue with acetaminophen, ice, elevation and rest. I would recommend close follow-up with her primary care doctor for recheck. Forms: PCP List Discharge Date/Time: 12/26/22 23:28
[2022-12-26] MEDS ORDERED: oxyCODONE/ACET 5/325 Prepack 4 PO STA (23:03)
[2022-12-26 23:38] VITALS: BP 143/69; O2SAT 98
== END 2022-12-26 23:28 | disposition home or self-care (01) ==
LOC: ED 19:50
DX: S89.92XA Unspecified injury of left lower leg, initial encounter (principal); S09.90XA Unspecified injury of head, initial encounter; W01.0XXA Fall on same level from slipping, tripping and stumbling without subsequent striking against object, initial encounter; Y92.009 Unspecified place in unspecified non-institutional (private) residence as the place of occurrence of the external cause; G62.9 Polyneuropathy, unspecified; Z79.01 Long term (current) use of anticoagulants; F17.200 Nicotine dependence, unspecified, uncomplicated
CPT/HCPCS: 99283; 99284

== ENCOUNTER 2023-03-12 18:23 | Emergency (ER) | payer MEDICAID, OTHER ==
[2023-03-12 18:48] VITALS: O2SAT 98
--- NOTE | 2023-03-12 19:17 | ED Physician Documentation ---
History of Present Illness - Stated complaint Stated Complaint: TOOTH PX,HEADACHE,LIP LAC - Chief complaint Chief Complaint: Heent - History obtained from History obtained from: Patient - Additonal information Additional information: 53-year-old female presents with dental pain. The patient has had longstanding dental issues, she has a number of broken teeth caries and has had a number of abscesses in the past. She is following up with dentist at [facility] but can only been seen every 6 months or so as they do 1 procedure at a time and so though she is going to the dentist, all her issues have not been resolved and thus in the meantime she has to come to the ER when the pain flares. She is having a exacerbation of her dental pain, primarily in the right upper molars that are broken and decayed. She takes Tylenol and ibuprofen at home without relief. She states she just needs medication to get through until she sees her primary doctor next week. She states she was told after calling the clinic that she should "just go to the ER and they will give you pain medication." She has not had a fever, no facial swelling or erythema though she has had abscesses in the past. Review of Systems Constitutional: reports: Reviewed and negative Cardiac: reports: Reviewed and negative Respiratory: reports: Reviewed and negative GI: reports: Reviewed and negative Skin: reports: Reviewed and negative Musculoskeletal: reports: Reviewed and negative Neurologic: reports: Reviewed and negative PD PAST MEDICAL HISTORY - Past Medical History Past Medical History: Yes Cardiovascular: Hypertension, High cholesterol, Arrhythmia, Other Respiratory: Sleep apnea, CPAP use, Other Neuro: Headaches, Migraines, Peripheral neuropathy Endocrine/Autoimmune: Type 2 diabetes, Other GI: GERD, GI bleed, Ulcers, Colon polyps, Hemorrhoids SL[employer]: None : Chronic bladder infection, Nocturia, Frequency HEENT: Chronic vision loss, Chronic sinusitis Psych: Depression, Anxiety, Post traumatic stress disorder Musculoskeletal: Fibromyalgia, Fatigue Derm: None - Past Surgical History Past Surgical History: Yes General: Colonoscopy, EGD Ortho: Other Cardiovascular: Coronary stent, Cardiac catheterization, Angioplasty HEENT: Myringotomy (tubes) - Present Medications Home Medications: Ambulatory Orders Medication Instructions Recorded Confirmed Insulin Lispro [Humalog] 12 - 45 unit SQ QID 07/19/12 11/29/17 Butalb/Acetaminophen/Caffeine 1 each PO Q6H PRN #10 capsule 05/23/14 11/29/17 [Fioricet 50-300-40 mg Capsule] Albuterol [Ventolin Hfa] 2 puffs INH Q4H PRN 09/03/14 11/29/17 Cholecalciferol (Vitamin D3) 5,000 units PO DAILY 07/01/15 11/29/17 [Vitamin D3] Gabapentin [Neurontin] 1,200 mg PO TID 07/01/15 11/29/17 Cyclobenzaprine HCl 10 mg PO TID PRN 06/05/16 11/29/17 Nortriptyline HCl 50 mg PO DAILY 10/13/17 11/29/17 raNITIdine HCl [Zantac] 300 mg PO BID 10/13/17 11/29/17 Aspirin 81 mg PO DAILY 11/29/17 11/29/17 Clopidogrel Bisulfate [Clopidogrel] 75 mg PO DAILY 11/29/17 11/29/17 Nicotine 14 mg Patch [Nicoderm] 1 each TOP Q24H 11/29/17 11/29/17 Atorvastatin Calcium 80 mg PO DAILY #60 tablet 12/01/17 Insulin Glargine [Lantus Solostar] 45 unit SUBQ DAILY #0 pen 12/01/17 Isosorbide Mononitrate [Isosorbide 120 mg PO DAILY #30 tab.er.24h 12/01/17 Mononitrate ER] Metoprolol Succinate [Toprol Xl] 50 mg PO BIDWM #60 tablet 12/01/17 lisinopriL [Lisinopril] 2.5 mg PO DAILY #30 tablet 12/01/17 Hydrocodone/Acetaminophen [[place] 1 each PO Q6H PRN #15 tablet 03/26/18 5-325 Tablet] Naproxen 375 mg PO BID #20 tablet 03/26/18 hydrOXYzine pamoate [Vistaril] 50 mg PO BID PRN #10 capsule 10/28/18 Hydrocodone/Acetaminophen 1 - 2 each PO Q6H PRN #14 tablet 01/21/19 [Hydrocodon-Acetaminophen 5-325] HYDROcod/ACETAM 5/325 [[place] 5/325] 1 - 2 tab PO Q6H PRN #10 tablet 05/28/20 Dicyclomine [Bentyl] 1 - 2 tab PO QID PRN #20 cap 05/30/20 Carisoprodol [Soma] 350 mg PO TID PRN #20 tablet 07/07/20 HYDROcod/ACETAM 5/325 [[place] 5/325] 1 - 2 tab PO Q6H PRN #15 tablet 07/07/20 Diphenoxylate/Atropine [Lomotil] 1 each PO QID #20 tablet 08/05/21 Doxycycline Hyclate 100 mg PO BID #14 cap 08/14/22 HYDROcod/ACETAM 5/325 [[place] 5/325] 1 tablet PO BID PRN #10 tablet 08/14/22 Doxycycline Hyclate 100 mg PO BID #20 tab 09/19/22 HYDROcod/ACETAM 5/325 [[place] 5/325] 1 - 2 tablet PO Q6H PRN #12 tablet 03/12/23 SUMAtriptan [Imitrex] 25 mg PO DAILY PRN #10 tablet 03/12/23 - Allergies Allergies/Adverse Reactions: Allergies Allergy/AdvReac Type Severity Reaction Status Date / Time Fish Containing Products Allergy Severe Headache Verified 08/14/22 17:02 shellfish derived Allergy Unknown Verified 08/14/22 17:02 meperidine HCl * AdvReac Severe Respiratory Verified 08/14/22 17:02 [From Demerol] cephalexin monohydrate * AdvReac Intermediate Hives Verified 08/14/22 17:02 [From Keflex] Sulfa (Sulfonamide AdvReac Intermediate Hives Verified 08/14/22 17:02 Antibiotics) pecan Allergy Severe Unknown Uncoded 08/14/22 17:02 Seafood Allergy Severe Anaphylaxis Uncoded 08/14/22 17:02 Walnuts Allergy Severe Headache Uncoded 08/14/22 17:02 tape AdvReac Rash Uncoded 08/14/22 17:02 - Social History Does the pt smoke?: Yes Smoking Status: Current every day smoker Does the pt drink ETOH?: Yes Does the pt have substance abuse?: No - Immunizations Immunizations are current?: Yes Immunizations: TDAP >10years/unknown - POLST Patient has POLST: No POLST Status: Full Code PD ED PE NORMAL - Vitals Vital signs reviewed: Yes - General General: Alert and oriented X 3, No acute distress, Well developed/nourished - HEENT HEENT: Atraumatic, Moist mucous membranes, Other (Poor dentition, numerous decayed teeth with root exposure in the right upper and right lower molars, no visible abscesses along the gumline no facial swelling or erythema.) - Neck Neck: Supple, no meningeal sign, No adenopathy - Cardiac Cardiac: RRR, No murmur - Respiratory Respiratory: No respiratory distress, Clear bilaterally Results - Vitals Vitals: Vital Signs - 24 hr 03/12/23 18:40 Temperature 37 C Heart Rate 82 Respiratory 15 Rate Blood Pressure 148/67 H O2 Saturation 98 Oxygen O2 Source Room air PD Medical Decision Making - ED course Complexity details: considered differential, d/w patient ED course: 53-year-old female presents with dental pain. The patient has a number of decayed teeth though no visible abscesses at this time, no facial swelling or erythema. She is trying to follow with dental but she has a number of issues and they are only addressing 1 at a time that she is requesting pain management until she can see her PCP. Today, patient is nontoxic-appearing, afebrile and no sign of facial swelling or erythema no gum abscesses. I discussed with her that I can give her short-term pain control butIdeally her pain would be managed by her PCP as this is now a long-term issue. She needs to get into see the dentist as soon as possible to address these issues to avoid recurrent ER visits for narcotics. I do not think there is indication for antibiotics today but she was given return precautions if new or worsening symptoms. Departure - Departure Disposition: 01 Home, Self Care Clinical Impression: Pain due to dental caries Instructions: ED Tooth Pain Prescriptions: SUMAtriptan [Imitrex] 25 mg PO DAILY PRN #10 tablet PRN Reason: Headache HYDROcod/ACETAM 5/325 [[place] 5/325] 1 - 2 tablet PO Q6H PRN #12 tablet PRN Reason: Pain Comments: Please try to get into her PCP as soon as possible for ongoing pain management as needed. Please make a dental appointment as soon as possible as we cannot continue to give you narcotic pain medication in the ER for this issue. I am prescribing a short course of narcotic pain medication for you. These are potentially dangerous and addictive medications that should be used carefully. These medications may constipate you. Take an [id number] stool softener (docusate) twice daily with plenty of water while taking these medications. If you go 24 hours without a bowel movement, take [id number] miralax, per package instructions. Do not drink or drive while taking these medications. If you received narcotic or sedating medications while in the emergency department, do not drive for 24 hours. Store this medication in a safe, secure place and out of reach of children. It is a violation of federal law to give or sell this medication to another person or to use in a manner other than prescribed. The ED will not refill narcotic prescriptions, including prescriptions lost or stolen. To dispose of unwanted medications: 1. [facility] provides a drop box for medication in pill form only (no liquids) 8:00 am to 4:30 p.m. Wednesday-Wednesday in the lobby of the [facility], [address] [place] [address]. Empty pills into ziplock bag before disposal. Call [phone] for information. 2.[employer] is a free service available to all [facility] residents. Go to [email or web address] Note that many narcotic pain relievers also contain Tylenol/acetaminophen. Please ensure that your total dose of acetaminophen from all sources does not exceed 3 g (3000 mg) per day. Forms: PCP List
[2023-03-12] MEDS ORDERED: KETOROLAC 30 MG/ML VIAL IM STA (19:36)
[2023-03-12 20:08] VITALS: BP 130/66
== END 2023-03-12 20:05 | disposition home or self-care (01) ==
LOC: ED 18:23
DX: K02.9 Dental caries, unspecified (principal); F17.200 Nicotine dependence, unspecified, uncomplicated
CPT/HCPCS: 96372; 99283

== ENCOUNTER 2023-08-12 10:16 | Outpatient (CLI) | payer MEDICAID | END 2023-08-12 10:17 | disposition home or self-care (01) | LOC: CAM 10:16 | PROVIDERS: ATTEND Nurse Practitioner Family | DX: M79.7 Fibromyalgia (principal) | CPT/HCPCS: 97810; 97811 ==

== ENCOUNTER 2023-08-17 16:09 | Outpatient (CLI) | payer MEDICAID | END 2023-08-17 16:10 | disposition home or self-care (01) | LOC: CAM 16:09 | PROVIDERS: ATTEND Nurse Practitioner Family | DX: M79.7 Fibromyalgia (principal) | CPT/HCPCS: 97810; 97811 ==

== ENCOUNTER 2023-08-26 15:05 | Outpatient (CLI) | payer MEDICAID | END 2023-08-26 15:06 | disposition home or self-care (01) | LOC: CAM 15:05 | PROVIDERS: ATTEND Nurse Practitioner Family | DX: M79.7 Fibromyalgia (principal) | CPT/HCPCS: 97810; 97811 ==

== ENCOUNTER 2023-09-02 14:48 | Outpatient (CLI) | payer MEDICAID | END 2023-09-02 14:49 | disposition home or self-care (01) | LOC: CAM 14:48 | PROVIDERS: ATTEND Nurse Practitioner Family | DX: M79.7 Fibromyalgia (principal) | CPT/HCPCS: 97810; 97811 ==

== ENCOUNTER 2023-09-09 13:52 | Outpatient (CLI) | payer MEDICAID | END 2023-09-09 13:53 | disposition home or self-care (01) | LOC: CAM 13:52 | PROVIDERS: ATTEND Nurse Practitioner Family | DX: M79.7 Fibromyalgia (principal) | CPT/HCPCS: 97810; 97811 ==

== ENCOUNTER 2023-09-28 14:07 | Outpatient (CLI) | payer MEDICAID | END 2023-09-28 14:08 | disposition home or self-care (01) | LOC: CAM 14:07 | PROVIDERS: ATTEND Nurse Practitioner Family | DX: Z53.9 Procedure and treatment not carried out, unspecified reason (principal) ==

== ENCOUNTER 2023-10-14 12:59 | Outpatient (CLI) | payer MEDICAID | END 2023-10-14 13:00 | disposition home or self-care (01) | LOC: CAM 12:59 | PROVIDERS: ATTEND Nurse Practitioner Family | DX: M79.7 Fibromyalgia (principal) | CPT/HCPCS: 97810; 97811 ==

== ENCOUNTER 2023-10-21 12:06 | Outpatient (CLI) | payer MEDICAID | END 2023-10-21 12:07 | disposition home or self-care (01) | LOC: CAM 12:06 | PROVIDERS: ATTEND Nurse Practitioner Family | DX: M79.7 Fibromyalgia (principal) | CPT/HCPCS: 97810; 97811 ==